=== PATIENT | female | born 1955 | race African-American/Black ===

== ENCOUNTER 2017-04-28 11:52 | Inpatient (IN) | payer MEDICARE, MEDICAID ==
--- NOTE | 2017-04-28 12:03 | ED Physician Chart ---
ED Chief Complaint/HPI - Patient Information Date Seen:: 04/28/17 Time Seen:: 12:02 Chief Complaint:: Increased agitation History of Present Illness:: 61 yo female was brought from SNF to ER for evaluation of increased agitation. She had COPD and Schizophrenia. Allergies:: Allergies Allergy/AdvReac Type Severity Reaction Status Date / Time MDX Ranitidine [Ranitidine] Allergy Verified 01/13/13 10:05 ED Review of Systems - Review of Systems General/Constitutional: No fever, Weakness Skin: No bruising Head: No headache Eyes: No pain ENT: No nasal drainage Neck: No neck pain Cardio Vascular: No chest pain Pulmonary: Wheezing GI: No nausea, No vomiting Musculoskeletal: No bone or joint pain ED Past Medical History - Past Medical History Past Medical History: HTN, DM, Thyroid disorder (hypothyroidism), Other (Anemia , glaucoma, cirrhosis, ascites, left eye blindness) Social History: Smoker (Former smoker), No Alcohol, No Drug Use Psychiatricy History: Depression, Schizophrenia Family Medical History - Family Member Mother Hx Family Cancer: No Hx Family Congestive Heart Failure: No Hx Family Hypertension: No Hx Family Diabetes: No Hx Family Seizures: No Hx Family Dementia: No Hx Family COPD: No Hx Family Hepatitis: No Hx Family Tuberculosis: No ED Physical Exam - Physical Examination General/Constitutional: Awake Head: Atraumatic Eyes: PERRL Skin: No ecchymosis ENMT: Nasal exam nl Neck: No nuchal rigidity Other Respiratory comments:: Wheezing, labored breathing Cardio Vascular: No murmur, gallop, rubs, NL S1 S2 Other Cardio Vascular comments:: Irregular GI: No tenderness/rebounding/guarding Other Extremities comments:: 2+ edema BLE Other Neuro/Psych comments:: resting tremor of bilateral upper extremities ED Labs/Radiology/EKG Results - Radiology Results Results: CXR: increased lung markings ED Assessment - Assessment General Assessment: UTI COPD exacerbation with hypoxemia Anemia Assessment/Comments:: CBC, CMP, UA ABG, CXR, EKG NS 1L IV bolus DuoNeb Rocephin ED Septic Shock - . Is Septic Shock (SBP<90, OR Lactate>4 mmol\L) present?: No
[2017-04-28] MEDS ORDERED: Albuterol/Ipratropium Neb 3 ML AERS HHN ONE ×2 (12:56→12:57)
[2017-04-28 13:20] LABS: MEAN CELL VOLUME 88.4 fl (81-100); MEAN CORPUSCULAR HEMOGLOBIN 28.8 pg (27.0-31.0); MEAN CORPUSCULAR HGB CONC 32.5 pg (28.0-36.0); MEAN PLATELET VOLUME 10.3 fl; RED CELL DISTRIBUTION WIDTH 17.4 % (11.5-20.0); WHITE BLOOD COUNT 6.3 Th/cmm (4.8-10.8)
[2017-04-28 13:24] LABS: ALB/GLOB RATIO 0.6 (1.0-1.8); ALBUMIN 2.5 gm/dL (3.7-5.3); ALKALINE PHOSPHATASE 164 U/L (34-104); ANION GAP 10.5 (7.0-16.0); BILIRUBIN,TOTAL 1.8 mg/dL (0.3-1.0); BUN - UREA NITROGEN 16 mg/dL (7-25); CARBON DIOXIDE 26.4 mEq/L (21.0-31.0); CHLORIDE 101 mEq/L (98-107); CREATININE - SERUM 0.8 mg/dL (0.6-1.2); GFR AFRICAN-AMERICAN > 60.0 ml/min (>90); GFR NON AFRICAN-AMERICAN > 60.0 ml/min; GLUCOSE 120 mg/dL (70-105); POTASSIUM SERUM 3.9 mEq/L (3.5-5.1); SGOT 122 U/L (13-39); SGPT/ALT 54 U/L (7-52); SODIUM SERUM 134 mEq/L (136-145); TOTAL PROTEIN,SERUM 6.8 gm/dL (6.0-8.3)
--- NOTE | 2017-04-28 13:51 | Diagnostic Imaging Report ---
CHEST X-RAY: AP view INDICATION: Wheezing COMPARISON: None FINDINGS: Increased lung markings are noted with elevation of the right hemidiaphragm. Borderline prominent heart is noted accentuated by patient's low lung volumes. No focal consolidation or effusions. Degenerative changes of the spine and shoulders are noted. IMPRESSION: Increased interstitial lung markings which may be due to patient's low lung volumes. Note however, a marginally of degree of congestion cannot be completely excluded. Please correlate clinically Additional increased right basal lung markings favoring atelectatic changes. No focal consolidation identified. Borderline prominent heart.
[2017-04-28 13:53] LABS: MANUAL DIFF REQUIRED? YES
[2017-04-28 13:54] LABS: HEMATOCRIT 30.9 % (41.0-60); HEMOGLOBIN 10.1 gm/dL (12-16); PLATELET COUNT 90 Th/cmm (150-400)
[2017-04-28 14:15] LABS: ALLEN TEST YES; pH 7.41 (7.35-7.45)
[2017-04-28 14:34] LABS: BAND NEUTROPHILE 1 % (0-10); BASOPHIL 0 % (0-3); EOSINOPHIL 7 % (0-5); LYMPHOCYTE 15 % (20-50); MONOCYTE 7 % (2-10); NEUTROPHILS 70 % (40-80)
[2017-04-28 14:35] LABS: URINE MICROSCOPIC INDICATED? YES; URINE SOURCE RANDOM
[2017-04-28 14:36] LABS: URINE BILIRUBIN NEGATIVE (NEGATIVE); URINE BLOOD NEGATIVE (NEGATIVE); URINE GLUCOSE (UA) NEGATIVE (NEGATIVE); URINE KETONE NEGATIVE (NEGATIVE); URINE LEUKOCYTE ESTERASE TRACE (NEGATIVE); URINE NITRATE NEGATIVE (NEGATIVE); URINE PROTEIN NEGATIVE (NEGATIVE)
[2017-04-28 14:50] LABS: URINE CLARITY HAZY (CLEAR); URINE COLOR YELLOW
[2017-04-28 14:51] LABS: URINE RBC 0-2 /hpf (0-5)
[2017-04-28 14:53] LABS: URINE BACTERIA FEW /hpf (NONE SEEN); URINE EPITHELIAL CELLS NONE SEEN /lpf (FEW)
[2017-04-28] MEDS ORDERED: Sodium Chloride 0.9% 1,000 ML IV ONE (14:56)
[2017-04-28] MEDS ORDERED: cefTRIAXone 1 GM in Sodium Chloride 0.9% 50 ML IV ONE (14:57)
[2017-04-28 20:18] VITALS: BP 135/58
[2017-04-29] MEDS ORDERED: Albuterol/Ipratropium Neb 3 ML AERS HHN ONE ×2 (05:00→05:03)
--- NOTE | 2017-04-29 16:19 | History & Physical ---
ADMIT DATE: 04/28/2017 DICTATING FOR: Dr. Champ Enrique. CHIEF COMPLAINT: Agitation. HISTORY OF PRESENT ILLNESS: This is a 61-year-old female, who is a skilled nursing resident, who is now admitted to the Geropsych Unit due to increase of agitation toward nursing staff. PAST MEDICAL HISTORY: COPD, schizophrenia, hypertension, diabetes, anemia, glaucoma, cirrhosis, ascites, left eye blindness. SOCIAL HISTORY: The patient is a skilled nursing resident. MEDICATIONS: Please see medication reconciliation. FAMILY HISTORY: Noncontributory. REVIEW OF SYSTEMS: GENERAL: Denies any fevers and chills. CARDIOVASCULAR: Denies chest pain. RESPIRATORY: Denies shortness of breath. GASTROINTESTINAL: Denies nausea, vomiting, or abdominal pain. GENITOURINARY: Denies increased frequency or dysuria. NEUROLOGIC: No headaches, seizures or syncope. All other systems are reviewed and are negative. PHYSICAL EXAMINATION: GENERAL: This is an elderly female. Awake, alert with confusion in no apparent distress. VITAL SIGNS: Temperature 97.1, heart rate 91, respirations 22, blood pressure 143/71. HEENT: Head normocephalic, atraumatic. NECK: Supple. No mass. LUNGS: Clear bilaterally. ABDOMEN: Soft, nontender. LABORATORY DATA: WBC 6.3, H and H 10.1 and 30.9, platelets 90. Sodium 134, potassium 3.9, chloride 101, BUN 16, creatinine 0.8, albumin 2.5. ASSESSMENT: Protein-calorie malnutrition, hypertension, diabetes, hypothyroidism, anemia, history of glaucoma, cirrhosis, left eye blindness, chronic obstructive pulmonary disease, acute urinary tract infection. PLAN: The patient to be admitted to the Geropsych Unit. We will start the patient on Levaquin for 7 days. We will continue to follow this patient. JOB# [id number]
[2017-04-29] MEDS ORDERED: Non-Formulary Item 1 EA (Melatonin [Melatonin] 6 MG) PO PRN (17:33)
[2017-04-29] MEDS: Hydrocodone/APAP 5mg/325mg Tab PO PRN (18:22)
[2017-04-29] MEDS: Polyvinyl Alcohol Ophth Soln 15 mL Bottle EACH EYE SCH (21:19)
[2017-04-29] MEDS: Lactulose 10 Gm/15 mL 30mL UDC PO SCH (21:19)
[2017-04-30] MEDS: Albuterol Nebulizer 2.5mg/3mL HHN PRN ×4 (03:12→19:14)
[2017-04-30] MEDS: Levothyroxine 0.1 Mg Tab PO SCH (06:39)
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
[2017-04-30] MEDS: Lactulose 10 Gm/15 mL 30mL UDC PO SCH ×3 (08:27→20:56)
[2017-04-30] MEDS: Multivitamin w/ Minerals Tab PO SCH (08:29)
[2017-04-30] MEDS: Polyvinyl Alcohol Ophth Soln 15 mL Bottle EACH EYE SCH ×3 (08:30→20:55)
[2017-04-30] MEDS ORDERED: Non-Formulary Item 1 EA (Potassium Chloride [Potassium Chloride] 1 TAB) PO SCH (09:00)
--- NOTE | 2017-04-30 14:00 | Internal Medicine Prog Note ---
Internal Medicine Subjective - Subjective Service Date: 04/30/17 Patient seen and examined:: with staff Patient is:: awake, verbal Per staff patient has:: tolerating meds Internal Medicine Objective - Results Result Diagrams: 04/28/17 13:04 04/28/17 13:04 Recent Labs: Laboratory Last Values WBC 6.3 Th/cmm (4.8-10.8) 04/28/17 13:04 RBC 3.50 Mil/cmm (3.80-5.10) L 04/28/17 13:04 Hgb 10.1 gm/dL (12-16) L D 04/28/17 13:04 Hct 30.9 % (41.0-60) L D 04/28/17 13:04 MCV 88.4 fl (81-100) 04/28/17 13:04 MCH 28.8 pg (27.0-31.0) 04/28/17 13:04 MCHC Differential 32.5 pg (28.0-36.0) 04/28/17 13:04 RDW 17.4 % (11.5-20.0) 04/28/17 13:04 Plt Count 90 Th/cmm (150-400) L D 04/28/17 13:04 MPV 10.3 fl 04/28/17 13:04 Band Neutrophils % 1 % (0-10) 04/28/17 13:04 Neutrophils (Manual) 70 % (40-80) 04/28/17 13:04 Lymphocytes 15 % (20-50) L 04/28/17 13:04 Monocytes 7 % (2-10) 04/28/17 13:04 Eosinophils 7 % (0-5) H 04/28/17 13:04 Basophils 0 % (0-3) 04/28/17 13:04 Specimen Source Arterial 04/28/17 14:08 Sample Site Right Radial 04/28/17 14:08 pH 7.41 (7.35-7.45) 04/28/17 14:08 pCO2 44.0 mmHg (35.0-45.0) 04/28/17 14:08 pO2 57.0 mmHg (80.0-100.0) L 04/28/17 14:08 HCO3 26.9 mEq/L (20.0-26.0) H 04/28/17 14:08 Base Excess 2.8 mEq/L (-3.0-3.0) 04/28/17 14:08 O2 Saturation 90.0 % (92.0-100.0) L 04/28/17 14:08 Damian Test YES 04/28/17 14:08 Vent Rate NA 04/28/17 14:08 Inspired O2 21 04/28/17 14:08 Tidal Volume NA 04/28/17 14:08 PEEP NA 04/28/17 14:08 Pressure (ins/psv/peep) NA 04/28/17 14:08 Critical Value E.BARRIOS 04/28/17 14:08 Sodium 134 mEq/L (136-145) L 04/28/17 13:04 Potassium 3.9 mEq/L (3.5-5.1) 04/28/17 13:04 Chloride 101 mEq/L (98-107) 04/28/17 13:04 Carbon Dioxide 26.4 mEq/L (21.0-31.0) 04/28/17 13:04 Anion Gap 10.5 (7.0-16.0) 04/28/17 13:04 BUN 16 mg/dL (7-25) 04/28/17 13:04 Creatinine 0.8 mg/dL (0.6-1.2) 04/28/17 13:04 Est GFR ( Amer) > 60.0 ml/min (>90) 04/28/17 13:04 Est GFR (Non-Af Amer) > 60.0 ml/min 04/28/17 13:04 BUN/Creatinine Ratio 20.0 04/28/17 13:04 Glucose 120 mg/dL (70-105) H 04/28/17 13:04 POC Glucose 134 MG/DL (70 - 105) H 04/29/17 06:33 Calcium 9.0 mg/dL (8.6-10.3) 04/28/17 13:04 Total Bilirubin 1.8 mg/dL (0.3-1.0) H 04/28/17 13:04 AST 122 U/L (13-39) H 04/28/17 13:04 ALT 54 U/L (7-52) H 04/28/17 13:04 Alkaline Phosphatase 164 U/L (34-104) H 04/28/17 13:04 B-Natriuretic Peptide 235.0 pg/mL (5.0-100.0) H 04/28/17 13:04 Total Protein 6.8 gm/dL (6.0-8.3) 04/28/17 13:04 Albumin 2.5 gm/dL (3.7-5.3) L 04/28/17 13:04 Globulin 4.3 gm/dL 04/28/17 13:04 Albumin/Globulin Ratio 0.6 (1.0-1.8) L 04/28/17 13:04 TSH 0.31 uIU/ml (0.34-5.60) L 04/28/17 13:04 Urine Source RANDOM 04/28/17 14:32 Urine Color YELLOW 04/28/17 14:32 Urine Clarity HAZY (CLEAR) 04/28/17 14:32 Urine pH 6.0 (4.6 - 8.0) 04/28/17 14:32 Ur Specific [place] 1.020 (1.005-1.030) 04/28/17 14:32 Urine Protein NEGATIVE mg/dL (NEGATIVE) 04/28/17 14:32 Urine Glucose (UA) NEGATIVE mg/dL (NEGATIVE) 04/28/17 14:32 Urine Ketones NEGATIVE mg/dL (NEGATIVE) 04/28/17 14:32 Urine Blood NEGATIVE (NEGATIVE) 04/28/17 14:32 Urine Nitrate NEGATIVE (NEGATIVE) 04/28/17 14:32 Urine Bilirubin NEGATIVE (NEGATIVE) 04/28/17 14:32 Urine Urobilinogen 1.0 E.U./dL (0.2 - 1.0) 04/28/17 14:32 Ur Leukocyte Esterase TRACE (NEGATIVE) H 04/28/17 14:32 Urine RBC 0-2 /hpf (0-5) 04/28/17 14:32 Urine WBC 10-25 /hpf (0-5) H 04/28/17 14:32 Ur Epithelial Cells NONE SEEN /lpf (FEW) 04/28/17 14:32 Urine Bacteria FEW /hpf (NONE SEEN) 04/28/17 14:32 - Physical Exam Vitals and I&O: Vital Signs Temp 98 F 04/29/17 20:49 Pulse 85 04/30/17 09:21 Resp 20 04/30/17 07:17 BP 110/62 04/30/17 09:21 Pulse Ox 94 04/30/17 07:17 Intake & Output 04/29/171818 04/30/17 18:59 06:59 18:59 Intake Total 1200 240 Balance 1200 240 Intake: Oral 1200 240 Other: # Voids 3 1 # Bowel Movements 1 Active Medications: Current Medications Acetaminophen (Tylenol) 650 mg PO Q6HR PRN PRN Reason: FEVER, NEWELL, PAIN Stop: 06/28/17 17:32 Last Admin: 04/30/17 08:29 Dose: 650 mg Acetaminophen/Hydrocodone Bitart ([place] 5mg/325mg) 1 tab PO Q12H PRN PRN Reason: CHRONIC PAIN Stop: 06/28/17 17:32 Last Admin: 04/29/17 18:22 Dose: 1 tab Albuterol Sulfate (Albuterol 2.5mg/3ml Neb Ud) 2.5 mg HHN Q4HRT PRN PRN Reason: Shortness of Breath Stop: 06/28/17 17:32 Last Admin: 04/30/17 07:17 Dose: 2.5 mg Amlodipine Besylate (Norvasc) 10 mg PO DAILY [facility] Stop: 06/29/17 08:59 Last Admin: 04/30/17 09:20 Dose: Not Given Artificial Tears (Artificial Tears Ophth Soln) 1 drop EACH EYE TID [facility] Stop: 06/28/17 20:59 Last Admin: 04/30/17 13:54 Dose: 1 drop Buspirone HCl (Buspar) 5 mg PO BID MONSE PRN Reason: Protocol Stop: 06/29/17 08:59 Last Admin: 04/30/17 08:28 Dose: 5 mg Cholecalciferol (Vitamin D3) 5,000 iu PO DAILY [facility] Stop: 06/29/17 08:59 Last Admin: 04/30/17 08:28 Dose: 5,000 iu Citalopram Hydrobromide (Celexa) 30 mg PO DAILY [facility] Stop: 06/29/17 08:59 Last Admin: 04/30/17 08:28 Dose: 30 mg Clopidogrel Bisulfate (Plavix) 75 mg PO DAILY [facility] Stop: 06/29/17 08:59 Last Admin: 04/30/17 08:28 Dose: 75 mg Furosemide (Lasix) 40 mg PO DAILY [facility] Stop: 06/29/17 08:59 Last Admin: 04/30/17 09:21 Dose: Not Given Lactulose (Cephulac) 10 gm PO TID [facility] Stop: 06/28/17 20:59 Last Admin: 04/30/17 13:54 Dose: 10 gm Latanoprost (Xalatan 0.005% Ophth Soln) 1 drop EACH EYE HS [facility] Stop: 06/28/17 20:59 Last Admin: 04/29/17 21:19 Dose: Not Given Levofloxacin (Levaquin) 250 mg PO DAILY [facility] Stop: 06/30/17 08:59 Levothyroxine Sodium (Synthroid) 0.2 mg PO QDAC [facility] Stop: 06/29/17 07:29 Last Admin: 04/30/17 06:39 Dose: 0.2 mg Lorazepam (Ativan) 0.5 mg PO Q8HR PRN; Protocol PRN Reason: Anxiety Stop: 06/27/17 20:28 Last Admin: 04/30/17 06:09 Dose: 0.5 mg Losartan Potassium (Cozaar) 100 mg PO DAILY [facility] Stop: 06/29/17 08:59 Last Admin: 04/30/17 09:21 Dose: Not Given Metoprolol Succinate (Toprol Xl) 25 mg PO DAILY [facility] Stop: 06/29/17 08:59 Last Admin: 04/30/17 09:21 Dose: Not Given Mupirocin (Bactroban Oint) 1 appl NS BID [facility] Stop: 05/04/17 17:01 Last Admin: 04/30/17 08:29 Dose: 1 appl Olanzapine (Zyprexa) 2.5 mg PO HS MONSE PRN Reason: Protocol Stop: 06/28/17 20:59 Last Admin: 04/29/17 21:20 Dose: Not Given Pregabalin (Lyrica) 75 mg PO HS [facility] Stop: 06/28/17 20:59 Last Admin: 04/29/17 21:18 Dose: 75 mg Zolpidem Tartrate (Ambien) 5 mg PO HS PRN PRN Reason: Insomnia Stop: 06/28/17 21:43 Last Admin: 04/29/17 22:52 Dose: 5 mg General: alert HEENT: NC/AT, PERRLA Neck: Supple Lungs: CTAB Cardiovascular: RRR, Normal S1, Normal S2, without murmur Abdomen: soft, non-tender, non-distended, positive bowel sound Neurological: alert - Procedures Procedures: Procedures Procedure Code Date OTHER GROUP THERAPY 94.44 01/13/13 Internal Medicine Assmt/Plan - Assessment Assessment: anemia glaucoma cirrhosis left eye blindness copd acute uti - Plan Plan: encourage fluids continue levaquin continue current orders
--- NOTE | 2017-04-30 21:40 | Progress Notes ---
DATE: 04/30/2017 The patient was seen, chart reviewed. Discussed with staff. The patient continues to be extremely anxious, depressed, endorsing thoughts of wanting to cut her own wrist. She has, however, been compliant with her medications, denying any side effects. The patient continues to be very depressed with thoughts of wanting to cut herself, so that she will require inpatient care for stabilization and treatment. We will monitor patient on a daily basis for response to treatment and titrate meds as needed. [facility]# [id number]
[2017-05-01] MEDS: Albuterol Nebulizer 2.5mg/3mL HHN PRN ×2 (01:27→13:50)
[2017-05-01] MEDS: Levothyroxine 0.1 Mg Tab PO SCH (06:54)
[2017-05-01] MEDS: Lactulose 10 Gm/15 mL 30mL UDC PO SCH ×3 (08:52→20:53)
[2017-05-01] MEDS: Multivitamin w/ Minerals Tab PO SCH (08:55)
[2017-05-01] MEDS: Polyvinyl Alcohol Ophth Soln 15 mL Bottle EACH EYE SCH ×3 (08:57→20:55)
[2017-05-01] MEDS: Hydrocodone/APAP 5mg/325mg Tab PO PRN ×2 (11:09→21:23)
--- NOTE | 2017-05-01 11:55 | Internal Medicine Prog Note ---
Internal Medicine Subjective - Subjective Service Date: 05/01/17 Patient is:: awake, verbal Per staff patient has:: tolerating meds Internal Medicine Objective - Results Result Diagrams: 04/28/17 13:04 04/28/17 13:04 Recent Labs: Laboratory Last Values WBC 6.3 Th/cmm (4.8-10.8) 04/28/17 13:04 RBC 3.50 Mil/cmm (3.80-5.10) L 04/28/17 13:04 Hgb 10.1 gm/dL (12-16) L D 04/28/17 13:04 Hct 30.9 % (41.0-60) L D 04/28/17 13:04 MCV 88.4 fl (81-100) 04/28/17 13:04 MCH 28.8 pg (27.0-31.0) 04/28/17 13:04 MCHC Differential 32.5 pg (28.0-36.0) 04/28/17 13:04 RDW 17.4 % (11.5-20.0) 04/28/17 13:04 Plt Count 90 Th/cmm (150-400) L D 04/28/17 13:04 MPV 10.3 fl 04/28/17 13:04 Band Neutrophils % 1 % (0-10) 04/28/17 13:04 Neutrophils (Manual) 70 % (40-80) 04/28/17 13:04 Lymphocytes 15 % (20-50) L 04/28/17 13:04 Monocytes 7 % (2-10) 04/28/17 13:04 Eosinophils 7 % (0-5) H 04/28/17 13:04 Basophils 0 % (0-3) 04/28/17 13:04 Specimen Source Arterial 04/28/17 14:08 Sample Site Right Radial 04/28/17 14:08 pH 7.41 (7.35-7.45) 04/28/17 14:08 pCO2 44.0 mmHg (35.0-45.0) 04/28/17 14:08 pO2 57.0 mmHg (80.0-100.0) L 04/28/17 14:08 HCO3 26.9 mEq/L (20.0-26.0) H 04/28/17 14:08 Base Excess 2.8 mEq/L (-3.0-3.0) 04/28/17 14:08 O2 Saturation 90.0 % (92.0-100.0) L 04/28/17 14:08 Damian Test YES 04/28/17 14:08 Vent Rate NA 04/28/17 14:08 Inspired O2 21 04/28/17 14:08 Tidal Volume NA 04/28/17 14:08 PEEP NA 04/28/17 14:08 Pressure (ins/psv/peep) NA 04/28/17 14:08 Critical Value E.BARRIOS 04/28/17 14:08 Sodium 134 mEq/L (136-145) L 04/28/17 13:04 Potassium 3.9 mEq/L (3.5-5.1) 04/28/17 13:04 Chloride 101 mEq/L (98-107) 04/28/17 13:04 Carbon Dioxide 26.4 mEq/L (21.0-31.0) 04/28/17 13:04 Anion Gap 10.5 (7.0-16.0) 04/28/17 13:04 BUN 16 mg/dL (7-25) 04/28/17 13:04 Creatinine 0.8 mg/dL (0.6-1.2) 04/28/17 13:04 Est GFR ( Amer) > 60.0 ml/min (>90) 04/28/17 13:04 Est GFR (Non-Af Amer) > 60.0 ml/min 04/28/17 13:04 BUN/Creatinine Ratio 20.0 04/28/17 13:04 Glucose 120 mg/dL (70-105) H 04/28/17 13:04 POC Glucose 134 MG/DL (70 - 105) H 04/29/17 06:33 Calcium 9.0 mg/dL (8.6-10.3) 04/28/17 13:04 Total Bilirubin 1.8 mg/dL (0.3-1.0) H 04/28/17 13:04 AST 122 U/L (13-39) H 04/28/17 13:04 ALT 54 U/L (7-52) H 04/28/17 13:04 Alkaline Phosphatase 164 U/L (34-104) H 04/28/17 13:04 B-Natriuretic Peptide 235.0 pg/mL (5.0-100.0) H 04/28/17 13:04 Total Protein 6.8 gm/dL (6.0-8.3) 04/28/17 13:04 Albumin 2.5 gm/dL (3.7-5.3) L 04/28/17 13:04 Globulin 4.3 gm/dL 04/28/17 13:04 Albumin/Globulin Ratio 0.6 (1.0-1.8) L 04/28/17 13:04 TSH 0.31 uIU/ml (0.34-5.60) L 04/28/17 13:04 Urine Source RANDOM 04/28/17 14:32 Urine Color YELLOW 04/28/17 14:32 Urine Clarity HAZY (CLEAR) 04/28/17 14:32 Urine pH 6.0 (4.6 - 8.0) 04/28/17 14:32 Ur Specific [place] 1.020 (1.005-1.030) 04/28/17 14:32 Urine Protein NEGATIVE mg/dL (NEGATIVE) 04/28/17 14:32 Urine Glucose (UA) NEGATIVE mg/dL (NEGATIVE) 04/28/17 14:32 Urine Ketones NEGATIVE mg/dL (NEGATIVE) 04/28/17 14:32 Urine Blood NEGATIVE (NEGATIVE) 04/28/17 14:32 Urine Nitrate NEGATIVE (NEGATIVE) 04/28/17 14:32 Urine Bilirubin NEGATIVE (NEGATIVE) 04/28/17 14:32 Urine Urobilinogen 1.0 E.U./dL (0.2 - 1.0) 04/28/17 14:32 Ur Leukocyte Esterase TRACE (NEGATIVE) H 04/28/17 14:32 Urine RBC 0-2 /hpf (0-5) 04/28/17 14:32 Urine WBC 10-25 /hpf (0-5) H 04/28/17 14:32 Ur Epithelial Cells NONE SEEN /lpf (FEW) 04/28/17 14:32 Urine Bacteria FEW /hpf (NONE SEEN) 04/28/17 14:32 - Physical Exam Vitals and I&O: Vital Signs Temp 98 F 04/30/17 20:00 Pulse 80 05/01/17 10:01 Resp 18 05/01/17 10:01 BP 140/60 05/01/17 08:58 Pulse Ox 98 05/01/17 10:01 Intake & Output 04/30/1718 05/01/17 18:59 06:59 18:59 Intake Total 1200 Balance 1200 Intake: Oral 1200 Other: # Voids 3 # Bowel Movements 1 Active Medications: Current Medications Acetaminophen (Tylenol) 650 mg PO Q6HR PRN PRN Reason: FEVER, NEWELL, PAIN Stop: 06/28/17 17:32 Last Admin: 04/30/17 08:29 Dose: 650 mg Acetaminophen/Hydrocodone Bitart ([place] 5mg/325mg) 1 tab PO Q12H PRN PRN Reason: CHRONIC PAIN Stop: 06/28/17 17:32 Last Admin: 05/01/17 11:09 Dose: 1 tab Albuterol Sulfate (Albuterol 2.5mg/3ml Neb Ud) 2.5 mg HHN Q4HRT PRN PRN Reason: Shortness of Breath Stop: 06/28/17 17:32 Last Admin: 05/01/17 01:27 Dose: 2.5 mg Amlodipine Besylate (Norvasc) 10 mg PO DAILY [facility] Stop: 06/29/17 08:59 Last Admin: 05/01/17 08:58 Dose: 10 mg Artificial Tears (Artificial Tears Ophth Soln) 1 drop EACH EYE TID [facility] Stop: 06/28/17 20:59 Last Admin: 05/01/17 08:57 Dose: 1 drop Buspirone HCl (Buspar) 5 mg PO BID MONSE PRN Reason: Protocol Stop: 06/29/17 08:59 Last Admin: 05/01/17 08:58 Dose: 5 mg Cholecalciferol (Vitamin D3) 5,000 iu PO DAILY [facility] Stop: 06/29/17 08:59 Last Admin: 05/01/17 08:53 Dose: 5,000 iu Citalopram Hydrobromide (Celexa) 30 mg PO DAILY [facility] Stop: 06/29/17 08:59 Last Admin: 05/01/17 08:56 Dose: 30 mg Clopidogrel Bisulfate (Plavix) 75 mg PO DAILY [facility] Stop: 06/29/17 08:59 Last Admin: 05/01/17 08:57 Dose: 75 mg Doxycycline Hyclate (Vibramycin) 100 mg PO Q12HR [facility] Stop: 05/07/17 20:59 Last Admin: 05/01/17 08:53 Dose: 100 mg Furosemide (Lasix) 40 mg PO DAILY [facility] Stop: 06/29/17 08:59 Last Admin: 05/01/17 08:54 Dose: 40 mg Lactulose (Cephulac) 10 gm PO TID [facility] Stop: 06/28/17 20:59 Last Admin: 05/01/17 08:52 Dose: 10 gm Latanoprost (Xalatan 0.005% Ophth Soln) 1 drop EACH EYE HS [facility] Stop: 06/28/17 20:59 Last Admin: 04/30/17 20:55 Dose: 1 drop Levothyroxine Sodium (Synthroid) 0.2 mg PO QDAC [facility] Stop: 06/29/17 07:29 Last Admin: 05/01/17 06:54 Dose: 0.2 mg Lorazepam (Ativan) 0.5 mg PO Q8HR PRN; Protocol PRN Reason: Anxiety Stop: 06/27/17 20:28 Last Admin: 04/30/17 14:47 Dose: 0.5 mg Losartan Potassium (Cozaar) 100 mg PO DAILY [facility] Stop: 06/29/17 08:59 Last Admin: 05/01/17 08:57 Dose: 100 mg Metoprolol Succinate (Toprol Xl) 25 mg PO DAILY [facility] Stop: 06/29/17 08:59 Last Admin: 05/01/17 08:55 Dose: 25 mg Mupirocin (Bactroban Oint) 1 appl NS BID [facility] Stop: 05/04/17 17:01 Last Admin: 05/01/17 08:52 Dose: 1 appl Olanzapine (Zyprexa) 2.5 mg PO HS MON[facility] PRN Reason: Protocol Stop: 06/28/17 20:59 Last Admin: 04/30/17 20:55 Dose: 2.5 mg Pregabalin (Lyrica) 75 mg PO HS [facility] Stop: 06/28/17 20:59 Last Admin: 04/30/17 20:55 Dose: 75 mg Zolpidem Tartrate (Ambien) 5 mg PO HS PRN PRN Reason: Insomnia Stop: 06/28/17 21:43 Last Admin: 04/30/17 21:59 Dose: 5 mg General: alert HEENT: NC/AT, PERRLA Neck: Supple Lungs: CTAB Cardiovascular: RRR, Normal S1, Normal S2, without murmur Abdomen: soft, non-tender, non-distended, positive bowel sound Neurological: alert - Procedures Procedures: Procedures Procedure Code Date OTHER GROUP THERAPY 94.44 01/13/13 Internal Medicine Assmt/Plan - Assessment Assessment: anemia glaucoma cirrhosis left eye blindness copd acute uti - Plan Plan: encourage fluids continue levaquin continue current orders
--- NOTE | 2017-05-02 03:40 | Progress Notes ---
DATE: 05/01/2017 SUBJECTIVE: The patient in the hospital, coming in [place] [facility], agitation, depression here because she states she has a lot of panic attacks, anxiety, SI, wanting to cut wrists. On [id number], the patient remains symptomatic, anxious, still with panic, endorsing suicidal ideations, not john for safety. Medications reviewed. No side effects. ASSESSMENT: The patient remains symptomatic, anxious, endorsing SI, history of apparently schizophrenia. PLAN: We will continue to monitor. I will increase Zyprexa today. Given her ongoing symptoms, she is not safe for discharge at this time. JOB# [id number]
[2017-05-02] MEDS: Levothyroxine 0.1 Mg Tab PO SCH (06:30)
[2017-05-02] MEDS: Lactulose 10 Gm/15 mL 30mL UDC PO SCH ×3 (09:46→20:53)
[2017-05-02] MEDS: Polyvinyl Alcohol Ophth Soln 15 mL Bottle EACH EYE SCH ×3 (10:04→21:20)
[2017-05-02] MEDS: Albuterol Nebulizer 2.5mg/3mL HHN PRN ×4 (12:39→20:59)
--- NOTE | 2017-05-02 13:57 | Internal Medicine Prog Note ---
Internal Medicine Subjective - Subjective Service Date: 05/02/17 Patient is:: awake, verbal Per staff patient has:: tolerating meds Internal Medicine Objective - Results Result Diagrams: 04/28/17 13:04 04/28/17 13:04 Recent Labs: Laboratory Last Values WBC 6.3 Th/cmm (4.8-10.8) 04/28/17 13:04 RBC 3.50 Mil/cmm (3.80-5.10) L 04/28/17 13:04 Hgb 10.1 gm/dL (12-16) L D 04/28/17 13:04 Hct 30.9 % (41.0-60) L D 04/28/17 13:04 MCV 88.4 fl (81-100) 04/28/17 13:04 MCH 28.8 pg (27.0-31.0) 04/28/17 13:04 MCHC Differential 32.5 pg (28.0-36.0) 04/28/17 13:04 RDW 17.4 % (11.5-20.0) 04/28/17 13:04 Plt Count 90 Th/cmm (150-400) L D 04/28/17 13:04 MPV 10.3 fl 04/28/17 13:04 Band Neutrophils % 1 % (0-10) 04/28/17 13:04 Neutrophils (Manual) 70 % (40-80) 04/28/17 13:04 Lymphocytes 15 % (20-50) L 04/28/17 13:04 Monocytes 7 % (2-10) 04/28/17 13:04 Eosinophils 7 % (0-5) H 04/28/17 13:04 Basophils 0 % (0-3) 04/28/17 13:04 Specimen Source Arterial 04/28/17 14:08 Sample Site Right Radial 04/28/17 14:08 pH 7.41 (7.35-7.45) 04/28/17 14:08 pCO2 44.0 mmHg (35.0-45.0) 04/28/17 14:08 pO2 57.0 mmHg (80.0-100.0) L 04/28/17 14:08 HCO3 26.9 mEq/L (20.0-26.0) H 04/28/17 14:08 Base Excess 2.8 mEq/L (-3.0-3.0) 04/28/17 14:08 O2 Saturation 90.0 % (92.0-100.0) L 04/28/17 14:08 Damian Test YES 04/28/17 14:08 Vent Rate NA 04/28/17 14:08 Inspired O2 21 04/28/17 14:08 Tidal Volume NA 04/28/17 14:08 PEEP NA 04/28/17 14:08 Pressure (ins/psv/peep) NA 04/28/17 14:08 Critical Value E.BARRIOS 04/28/17 14:08 Sodium 134 mEq/L (136-145) L 04/28/17 13:04 Potassium 3.9 mEq/L (3.5-5.1) 04/28/17 13:04 Chloride 101 mEq/L (98-107) 04/28/17 13:04 Carbon Dioxide 26.4 mEq/L (21.0-31.0) 04/28/17 13:04 Anion Gap 10.5 (7.0-16.0) 04/28/17 13:04 BUN 16 mg/dL (7-25) 04/28/17 13:04 Creatinine 0.8 mg/dL (0.6-1.2) 04/28/17 13:04 Est GFR ( Amer) > 60.0 ml/min (>90) 04/28/17 13:04 Est GFR (Non-Af Amer) > 60.0 ml/min 04/28/17 13:04 BUN/Creatinine Ratio 20.0 04/28/17 13:04 Glucose 120 mg/dL (70-105) H 04/28/17 13:04 POC Glucose 134 MG/DL (70 - 105) H 04/29/17 06:33 Calcium 9.0 mg/dL (8.6-10.3) 04/28/17 13:04 Total Bilirubin 1.8 mg/dL (0.3-1.0) H 04/28/17 13:04 AST 122 U/L (13-39) H 04/28/17 13:04 ALT 54 U/L (7-52) H 04/28/17 13:04 Alkaline Phosphatase 164 U/L (34-104) H 04/28/17 13:04 B-Natriuretic Peptide 235.0 pg/mL (5.0-100.0) H 04/28/17 13:04 Total Protein 6.8 gm/dL (6.0-8.3) 04/28/17 13:04 Albumin 2.5 gm/dL (3.7-5.3) L 04/28/17 13:04 Globulin 4.3 gm/dL 04/28/17 13:04 Albumin/Globulin Ratio 0.6 (1.0-1.8) L 04/28/17 13:04 TSH 0.31 uIU/ml (0.34-5.60) L 04/28/17 13:04 Urine Source RANDOM 04/28/17 14:32 Urine Color YELLOW 04/28/17 14:32 Urine Clarity HAZY (CLEAR) 04/28/17 14:32 Urine pH 6.0 (4.6 - 8.0) 04/28/17 14:32 Ur Specific [place] 1.020 (1.005-1.030) 04/28/17 14:32 Urine Protein NEGATIVE mg/dL (NEGATIVE) 04/28/17 14:32 Urine Glucose (UA) NEGATIVE mg/dL (NEGATIVE) 04/28/17 14:32 Urine Ketones NEGATIVE mg/dL (NEGATIVE) 04/28/17 14:32 Urine Blood NEGATIVE (NEGATIVE) 04/28/17 14:32 Urine Nitrate NEGATIVE (NEGATIVE) 04/28/17 14:32 Urine Bilirubin NEGATIVE (NEGATIVE) 04/28/17 14:32 Urine Urobilinogen 1.0 E.U./dL (0.2 - 1.0) 04/28/17 14:32 Ur Leukocyte Esterase TRACE (NEGATIVE) H 04/28/17 14:32 Urine RBC 0-2 /hpf (0-5) 04/28/17 14:32 Urine WBC 10-25 /hpf (0-5) H 04/28/17 14:32 Ur Epithelial Cells NONE SEEN /lpf (FEW) 04/28/17 14:32 Urine Bacteria FEW /hpf (NONE SEEN) 04/28/17 14:32 - Physical Exam Vitals and I&O: Vital Signs Temp 98.5 F 05/01/17 20:00 Pulse 71 05/02/17 12:42 Resp 18 05/02/17 12:42 BP 156/62 05/02/17 09:54 Pulse Ox 98 05/02/17 12:42 Intake & Output 05/01/1718 05/02/17 18:59 06:59 18:59 Intake Total 1200 Balance 1200 Intake: Oral 1200 Other: # Voids 4 # Bowel Movements 1 Active Medications: Current Medications Acetaminophen (Tylenol) 650 mg PO Q6HR PRN PRN Reason: FEVER, NEWELL, PAIN Stop: 06/28/17 17:32 Last Admin: 04/30/17 08:29 Dose: 650 mg Acetaminophen/Hydrocodone Bitart ([place] 5mg/325mg) 1 tab PO Q12H PRN PRN Reason: CHRONIC PAIN Stop: 06/28/17 17:32 Last Admin: 05/01/17 21:23 Dose: 1 tab Albuterol Sulfate (Albuterol 2.5mg/3ml Neb Ud) 2.5 mg HHN Q4HRT PRN PRN Reason: Shortness of Breath Stop: 06/28/17 17:32 Last Admin: 05/02/17 12:39 Dose: 2.5 mg Amlodipine Besylate (Norvasc) 10 mg PO DAILY [facility] Stop: 06/29/17 08:59 Last Admin: 05/02/17 09:47 Dose: 10 mg Artificial Tears (Artificial Tears Ophth Soln) 1 drop EACH EYE TID MONSE Stop: 06/28/17 20:59 Last Admin: 05/02/17 10:04 Dose: 1 drop Buspirone HCl (Buspar) 5 mg PO BID MONSE PRN Reason: Protocol Stop: 06/29/17 08:59 Last Admin: 05/02/17 09:48 Dose: 5 mg Cholecalciferol (Vitamin D3) 5,000 iu PO DAILY MONSE Stop: 06/29/17 08:59 Last Admin: 05/02/17 09:54 Dose: 5,000 iu Citalopram Hydrobromide (Celexa) 30 mg PO DAILY MONSE Stop: 06/29/17 08:59 Last Admin: 05/02/17 09:48 Dose: 30 mg Clopidogrel Bisulfate (Plavix) 75 mg PO DAILY MONSE Stop: 06/29/17 08:59 Last Admin: 05/02/17 09:54 Dose: 75 mg Doxycycline Hyclate (Vibramycin) 100 mg PO Q12HR MONSE Stop: 05/07/17 20:59 Last Admin: 05/02/17 09:47 Dose: 100 mg Furosemide (Lasix) 40 mg PO DAILY MONSE Stop: 06/29/17 08:59 Last Admin: 05/02/17 09:54 Dose: 40 mg Lactulose (Cephulac) 10 gm PO TID MONSE Stop: 06/28/17 20:59 Last Admin: 05/02/17 09:46 Dose: 10 gm Latanoprost (Xalatan 0.005% Ophth Soln) 1 drop EACH EYE HS MONSE Stop: 06/28/17 20:59 Last Admin: 05/01/17 20:55 Dose: 1 drop Levothyroxine Sodium (Synthroid) 0.2 mg PO QDAC MONSE Stop: 06/29/17 07:29 Last Admin: 05/02/17 06:30 Dose: 0.2 mg Lorazepam (Ativan) 0.5 mg PO Q8HR PRN; Protocol PRN Reason: Anxiety Stop: 06/27/17 20:28 Last Admin: 05/02/17 06:27 Dose: 0.5 mg Losartan Potassium (Cozaar) 100 mg PO DAILY MONSE Stop: 06/29/17 08:59 Last Admin: 05/02/17 09:54 Dose: 100 mg Metoprolol Succinate (Toprol Xl) 25 mg PO DAILY MONSE Stop: 06/29/17 08:59 Last Admin: 05/02/17 09:52 Dose: 25 mg Mupirocin (Bactroban Oint) 1 appl NS BID MONSE Stop: 05/04/17 17:01 Last Admin: 05/02/17 10:04 Dose: 1 appl Olanzapine (Zyprexa) 5 mg PO HS MONSE PRN Reason: Protocol Stop: 06/30/17 20:59 Last Admin: 05/01/17 20:55 Dose: 5 mg Pregabalin (Lyrica) 75 mg PO HS MONSE Stop: 06/28/17 20:59 Last Admin: 05/01/17 20:51 Dose: 75 mg Zolpidem Tartrate (Ambien) 5 mg PO HS PRN PRN Reason: Insomnia Stop: 06/28/17 21:43 Last Admin: 05/01/17 21:23 Dose: 5 mg General: alert HEENT: NC/AT, PERRLA Neck: Supple Lungs: CTAB Cardiovascular: RRR, Normal S1, Normal S2, without murmur Abdomen: soft, non-tender, non-distended, positive bowel sound Neurological: alert - Procedures Procedures: Procedures Procedure Code Date OTHER GROUP THERAPY 94.44 01/13/13 Internal Medicine Assmt/Plan - Assessment Assessment: anemia glaucoma cirrhosis left eye blindness copd acute uti - Plan Plan: encourage fluids continue levaquin continue current orders
[2017-05-02] MEDS: Multivitamin w/ Minerals Tab PO SCH (18:03)
[2017-05-02] MEDS: Hydrocodone/APAP 5mg/325mg Tab PO PRN (20:52)
--- NOTE | 2017-05-03 00:56 | Progress Notes ---
DATE: 05/02/2017 The patient is currently in the hospital, coming from a half-way complaining of panic, ongoing SI, suicidal thought, suicidal fantasies, reclusive and isolative, withdrawn, still stating she feels bad and high anxiety. Currently on Zyprexa 5 mg at night. Recent dose increase. Still attesting to ongoing suicidal fantasies and severe depression. ASSESSMENT: The patient remains symptomatic and not safe for discharge. Still suicidal. We will continue to adjust and titrate medications. Medications were reviewed. [facility]# [id number]
[2017-05-03] MEDS: Levothyroxine 0.1 Mg Tab PO SCH (06:48)
[2017-05-03] MEDS: Multivitamin w/ Minerals Tab PO SCH (09:19)
[2017-05-03] MEDS: Lactulose 10 Gm/15 mL 30mL UDC PO SCH ×3 (09:20→21:58)
--- NOTE | 2017-05-03 13:16 | Progress Notes ---
DATE: 05/03/2017 The patient still remains symptomatic, ongoing suicidal thoughts, noting that she still feels melancholic, hopeless and despairing and is having a hard time coping and continues to complain of high anxiety, also with panic, shaking and desperate for help. Medications were noted. The patient remains reclusive and isolative. ASSESSMENT: The patient remains symptomatic, depressed, still alluding to a very high panic and suicidal thoughts, suicidal fantasies. PLAN: We will continue to monitor. We will make appropriate medication adjustments. The patient remains symptomatic, not safe for a lower level of care. [facility]# [id number]
--- NOTE | 2017-05-03 13:55 | Internal Medicine Prog Note ---
Internal Medicine Subjective - Subjective Service Date: 05/03/17 Patient is:: awake, verbal Per staff patient has:: tolerating meds Internal Medicine Objective - Results Result Diagrams: 04/28/17 13:04 04/28/17 13:04 Recent Labs: Laboratory Last Values WBC 6.3 Th/cmm (4.8-10.8) 04/28/17 13:04 RBC 3.50 Mil/cmm (3.80-5.10) L 04/28/17 13:04 Hgb 10.1 gm/dL (12-16) L D 04/28/17 13:04 Hct 30.9 % (41.0-60) L D 04/28/17 13:04 MCV 88.4 fl (81-100) 04/28/17 13:04 MCH 28.8 pg (27.0-31.0) 04/28/17 13:04 MCHC Differential 32.5 pg (28.0-36.0) 04/28/17 13:04 RDW 17.4 % (11.5-20.0) 04/28/17 13:04 Plt Count 90 Th/cmm (150-400) L D 04/28/17 13:04 MPV 10.3 fl 04/28/17 13:04 Band Neutrophils % 1 % (0-10) 04/28/17 13:04 Neutrophils (Manual) 70 % (40-80) 04/28/17 13:04 Lymphocytes 15 % (20-50) L 04/28/17 13:04 Monocytes 7 % (2-10) 04/28/17 13:04 Eosinophils 7 % (0-5) H 04/28/17 13:04 Basophils 0 % (0-3) 04/28/17 13:04 Specimen Source Arterial 04/28/17 14:08 Sample Site Right Radial 04/28/17 14:08 pH 7.41 (7.35-7.45) 04/28/17 14:08 pCO2 44.0 mmHg (35.0-45.0) 04/28/17 14:08 pO2 57.0 mmHg (80.0-100.0) L 04/28/17 14:08 HCO3 26.9 mEq/L (20.0-26.0) H 04/28/17 14:08 Base Excess 2.8 mEq/L (-3.0-3.0) 04/28/17 14:08 O2 Saturation 90.0 % (92.0-100.0) L 04/28/17 14:08 Damian Test YES 04/28/17 14:08 Vent Rate NA 04/28/17 14:08 Inspired O2 21 04/28/17 14:08 Tidal Volume NA 04/28/17 14:08 PEEP NA 04/28/17 14:08 Pressure (ins/psv/peep) NA 04/28/17 14:08 Critical Value E.BARRIOS 04/28/17 14:08 Sodium 134 mEq/L (136-145) L 04/28/17 13:04 Potassium 3.9 mEq/L (3.5-5.1) 04/28/17 13:04 Chloride 101 mEq/L (98-107) 04/28/17 13:04 Carbon Dioxide 26.4 mEq/L (21.0-31.0) 04/28/17 13:04 Anion Gap 10.5 (7.0-16.0) 04/28/17 13:04 BUN 16 mg/dL (7-25) 04/28/17 13:04 Creatinine 0.8 mg/dL (0.6-1.2) 04/28/17 13:04 Est GFR ( Amer) > 60.0 ml/min (>90) 04/28/17 13:04 Est GFR (Non-Af Amer) > 60.0 ml/min 04/28/17 13:04 BUN/Creatinine Ratio 20.0 04/28/17 13:04 Glucose 120 mg/dL (70-105) H 04/28/17 13:04 POC Glucose 134 MG/DL (70 - 105) H 04/29/17 06:33 Calcium 9.0 mg/dL (8.6-10.3) 04/28/17 13:04 Total Bilirubin 1.8 mg/dL (0.3-1.0) H 04/28/17 13:04 AST 122 U/L (13-39) H 04/28/17 13:04 ALT 54 U/L (7-52) H 04/28/17 13:04 Alkaline Phosphatase 164 U/L (34-104) H 04/28/17 13:04 B-Natriuretic Peptide 235.0 pg/mL (5.0-100.0) H 04/28/17 13:04 Total Protein 6.8 gm/dL (6.0-8.3) 04/28/17 13:04 Albumin 2.5 gm/dL (3.7-5.3) L 04/28/17 13:04 Globulin 4.3 gm/dL 04/28/17 13:04 Albumin/Globulin Ratio 0.6 (1.0-1.8) L 04/28/17 13:04 TSH 0.31 uIU/ml (0.34-5.60) L 04/28/17 13:04 Urine Source RANDOM 04/28/17 14:32 Urine Color YELLOW 04/28/17 14:32 Urine Clarity HAZY (CLEAR) 04/28/17 14:32 Urine pH 6.0 (4.6 - 8.0) 04/28/17 14:32 Ur Specific [place] 1.020 (1.005-1.030) 04/28/17 14:32 Urine Protein NEGATIVE mg/dL (NEGATIVE) 04/28/17 14:32 Urine Glucose (UA) NEGATIVE mg/dL (NEGATIVE) 04/28/17 14:32 Urine Ketones NEGATIVE mg/dL (NEGATIVE) 04/28/17 14:32 Urine Blood NEGATIVE (NEGATIVE) 04/28/17 14:32 Urine Nitrate NEGATIVE (NEGATIVE) 04/28/17 14:32 Urine Bilirubin NEGATIVE (NEGATIVE) 04/28/17 14:32 Urine Urobilinogen 1.0 E.U./dL (0.2 - 1.0) 04/28/17 14:32 Ur Leukocyte Esterase TRACE (NEGATIVE) H 04/28/17 14:32 Urine RBC 0-2 /hpf (0-5) 04/28/17 14:32 Urine WBC 10-25 /hpf (0-5) H 04/28/17 14:32 Ur Epithelial Cells NONE SEEN /lpf (FEW) 04/28/17 14:32 Urine Bacteria FEW /hpf (NONE SEEN) 04/28/17 14:32 - Physical Exam Vitals and I&O: Vital Signs Temp 98.2 F 05/03/17 07:29 Pulse 69 05/03/17 09:19 Resp 22 05/03/17 07:50 BP 139/74 05/03/17 09:19 Pulse Ox 100 05/03/17 07:50 Intake & Output 05/02/1718 05/03/17 18:59 06:59 18:59 Intake Total 250 120 Balance 250 120 Intake: Oral 250 120 Other: # Voids 2 2 # Bowel Movements 0 2 Active Medications: Current Medications Acetaminophen (Tylenol) 650 mg PO Q6HR PRN PRN Reason: FEVER, NEWELL, PAIN Stop: 06/28/17 17:32 Last Admin: 04/30/17 08:29 Dose: 650 mg Acetaminophen/Hydrocodone Bitart ([place] 5mg/325mg) 1 tab PO Q12H PRN PRN Reason: CHRONIC PAIN Stop: 06/28/17 17:32 Last Admin: 05/02/17 20:52 Dose: 1 tab Albuterol Sulfate (Albuterol 2.5mg/3ml Neb Ud) 2.5 mg HHN Q4HRT PRN PRN Reason: Shortness of Breath Stop: 06/28/17 17:32 Last Admin: 05/02/17 20:59 Dose: 2.5 mg Amlodipine Besylate (Norvasc) 10 mg PO DAILY [facility] Stop: 06/29/17 08:59 Last Admin: 05/03/17 09:19 Dose: 10 mg Artificial Tears (Artificial Tears Ophth Soln) 1 drop EACH EYE TID [facility] Stop: 06/28/17 20:59 Last Admin: 05/02/17 21:20 Dose: 1 drop Buspirone HCl (Buspar) 5 mg PO BID MONSE PRN Reason: Protocol Stop: 06/29/17 08:59 Last Admin: 05/03/17 09:14 Dose: 5 mg Cholecalciferol (Vitamin D3) 5,000 iu PO DAILY [facility] Stop: 06/29/17 08:59 Last Admin: 05/03/17 09:14 Dose: 5,000 iu Citalopram Hydrobromide (Celexa) 30 mg PO DAILY [facility] Stop: 06/29/17 08:59 Last Admin: 05/03/17 09:12 Dose: 30 mg Clopidogrel Bisulfate (Plavix) 75 mg PO DAILY MON[facility] Stop: 06/29/17 08:59 Last Admin: 05/03/17 09:14 Dose: 75 mg Doxycycline Hyclate (Vibramycin) 100 mg PO Q12HR [facility] Stop: 05/07/17 20:59 Last Admin: 05/03/17 09:15 Dose: 100 mg Furosemide (Lasix) 40 mg PO DAILY MON[facility] Stop: 06/29/17 08:59 Last Admin: 05/03/17 09:15 Dose: 40 mg Lactulose (Cephulac) 10 gm PO TID MONSE Stop: 06/28/17 20:59 Last Admin: 05/03/17 09:20 Dose: 10 gm Latanoprost ([facility]) 1 drop EACH EYE HS MONSE Stop: 06/28/17 20:59 Last Admin: 05/02/17 21:20 Dose: 1 drop Levothyroxine Sodium (Synthroid) 0.2 mg PO QDAC MONSE Stop: 06/29/17 07:29 Last Admin: 05/03/17 06:48 Dose: 0.2 mg Lorazepam (Ativan) 0.5 mg PO Q8HR PRN; Protocol PRN Reason: Anxiety Stop: 06/27/17 20:28 Last Admin: 05/03/17 02:05 Dose: 0.5 mg Losartan Potassium (Cozaar) 100 mg PO DAILY [facility] Stop: 06/29/17 08:59 Last Admin: 05/03/17 09:19 Dose: Not Given Metoprolol Succinate (Toprol Xl) 25 mg PO DAILY [facility] Stop: 06/29/17 08:59 Last Admin: 05/03/17 09:16 Dose: 25 mg Mupirocin (Bactroban Oint) 1 appl NS BID MONSE Stop: 05/04/17 17:01 Last Admin: 05/02/17 18:04 Dose: 1 appl Olanzapine (Zyprexa) 5 mg PO HS MONSE PRN Reason: Protocol Stop: 06/30/17 20:59 Last Admin: 05/02/17 20:45 Dose: 5 mg Olanzapine (Zyprexa) 5 mg PO DAILY MONSE PRN Reason: Protocol Stop: 07/03/17 08:59 Pregabalin (Lyrica) 75 mg PO HS MONSE Stop: 06/28/17 20:59 Last Admin: 05/02/17 20:44 Dose: 75 mg Zolpidem Tartrate (Ambien) 5 mg PO HS PRN PRN Reason: Insomnia Stop: 06/28/17 21:43 Last Admin: 05/02/17 20:53 Dose: 5 mg General: alert HEENT: NC/AT, PERRLA Neck: Supple Lungs: CTAB Cardiovascular: RRR, Normal S1, Normal S2, without murmur Abdomen: soft, non-tender, non-distended, positive bowel sound Neurological: alert - Procedures Procedures: Procedures Procedure Code Date OTHER GROUP THERAPY 94.44 01/13/13 Internal Medicine Assmt/Plan - Assessment Assessment: anemia glaucoma cirrhosis left eye blindness copd acute uti - Plan Plan: encourage fluids continue levaquin continue current orders Nutritional Asmnt/Malnutr-PDOC - Dietary Evaluation Malnutrition Findings (Please click <Entered> for more info): Nutritional Asmnt/Malnutrition Start: 05/02/17 13: 57 Text: Status: Complete Freq: Document 05/02/17 13:57 [email or web address] (Rec: 05/02/17 14:03 [email or web address] [id number]) Nutritional Asmnt/Malnutrition Patient General Information Nutritional Screening Moderate Risk Diagnosis psychosis Pertinent Medical Hx/Surgical Hx COPD, schizophrenia, HTN, DM, anemia, glaucomma, cirrhosis, ascites Subjective Information Pt A&O x 2, suspicious of others, not appropriate for interview. PO intake has been 50-75% of pureed diet, did refuse 1 meal, but otherwise eating well. Current Diet Order/ Nutrition Support pureed Patient / S.O Not Indicated Pertinent Medications vitamin d, plavix, lasix, lactulose, synthroid Pertinent Labs 04/28 Na: 134, glucose: 120-134 - well controlled for no DM diet, BNP: 235 Nutritional Hx/Data Height 4 ft 9 in Height (Calculated Centimeters) 144.8 Current Weight (lbs) 204 lb Weight (Calculated Kilograms) 92.5 Weight (Calculated Grams) 37984.8 [place] Body Weight 92 lbs % [place] Body Weight 222 Body Mass Index (BMI) 44.1 Weight Status Morbidly Obese GI Symptoms GI Symptoms None Last BM 05/02 Difficult in: Chewing Skin Integrity/Comment: intact, no edema noted Current %PO Fair (50-74%) Estimated Nutritional Goals BEE in Kcals: Adj wt of IBW Calories/Kcals/Kg 25-30 Kcals Calculated [id number] Protein: Adj wt of IBW Protein g/k Protein Calculated 55 Fluid: ml 2632-7836 mL Nutritional Problem 1. Problem Problem overweight/obesity Etiology lifestyle Signs/Symptoms: BMI: 44 Malnutrition Alert Is there a minimum of two criteria No selected? Query Text:Check all the applicable criteria. A minimum of two criteria are recommended for diagnosis of either severe or non-severe malnutrition. Malnutrition Related to Morbid Obesity Malnutrition related to morbid obesity BMI> or equal to 40 Query Text:(Any 1 Criteria met) Malnutrition related to morbid obesity Yes Intervention/Recommendation Comments 1. Continue pureed diet as ordered. Do not recommend CCHO restriction as patient with only fair PO intake and POC glucose is controlled. Expected Outcomes/Goals Expected Outcomes/Goals PO intake >50%, labs: WNL monitor wt, labs, skin, PO intake
[2017-05-03] MEDS: Polyvinyl Alcohol Ophth Soln 15 mL Bottle EACH EYE SCH ×2 (17:30→21:58)
[2017-05-03] MEDS: Albuterol Nebulizer 2.5mg/3mL HHN PRN (19:26)
[2017-05-04] MEDS: Albuterol Nebulizer 2.5mg/3mL HHN PRN ×3 (00:12→19:00)
[2017-05-04] MEDS: Hydrocodone/APAP 5mg/325mg Tab PO PRN ×2 (02:21→17:06)
[2017-05-04] MEDS: Levothyroxine 0.1 Mg Tab PO SCH (06:48)
[2017-05-04] MEDS: Lactulose 10 Gm/15 mL 30mL UDC PO SCH ×3 (09:10→20:56)
--- NOTE | 2017-05-04 15:23 | Internal Medicine Prog Note ---
Internal Medicine Subjective - Subjective Service Date: 05/04/17 Patient is:: awake, verbal Per staff patient has:: tolerating meds Internal Medicine Objective - Results Result Diagrams: 04/28/17 13:04 04/28/17 13:04 Recent Labs: Laboratory Last Values WBC 6.3 Th/cmm (4.8-10.8) 04/28/17 13:04 RBC 3.50 Mil/cmm (3.80-5.10) L 04/28/17 13:04 Hgb 10.1 gm/dL (12-16) L D 04/28/17 13:04 Hct 30.9 % (41.0-60) L D 04/28/17 13:04 MCV 88.4 fl (81-100) 04/28/17 13:04 MCH 28.8 pg (27.0-31.0) 04/28/17 13:04 MCHC Differential 32.5 pg (28.0-36.0) 04/28/17 13:04 RDW 17.4 % (11.5-20.0) 04/28/17 13:04 Plt Count 90 Th/cmm (150-400) L D 04/28/17 13:04 MPV 10.3 fl 04/28/17 13:04 Band Neutrophils % 1 % (0-10) 04/28/17 13:04 Neutrophils (Manual) 70 % (40-80) 04/28/17 13:04 Lymphocytes 15 % (20-50) L 04/28/17 13:04 Monocytes 7 % (2-10) 04/28/17 13:04 Eosinophils 7 % (0-5) H 04/28/17 13:04 Basophils 0 % (0-3) 04/28/17 13:04 Specimen Source Arterial 04/28/17 14:08 Sample Site Right Radial 04/28/17 14:08 pH 7.41 (7.35-7.45) 04/28/17 14:08 pCO2 44.0 mmHg (35.0-45.0) 04/28/17 14:08 pO2 57.0 mmHg (80.0-100.0) L 04/28/17 14:08 HCO3 26.9 mEq/L (20.0-26.0) H 04/28/17 14:08 Base Excess 2.8 mEq/L (-3.0-3.0) 04/28/17 14:08 O2 Saturation 90.0 % (92.0-100.0) L 04/28/17 14:08 Damian Test YES 04/28/17 14:08 Vent Rate NA 04/28/17 14:08 Inspired O2 21 04/28/17 14:08 Tidal Volume NA 04/28/17 14:08 PEEP NA 04/28/17 14:08 Pressure (ins/psv/peep) NA 04/28/17 14:08 Critical Value E.BARRIOS 04/28/17 14:08 Sodium 134 mEq/L (136-145) L 04/28/17 13:04 Potassium 3.9 mEq/L (3.5-5.1) 04/28/17 13:04 Chloride 101 mEq/L (98-107) 04/28/17 13:04 Carbon Dioxide 26.4 mEq/L (21.0-31.0) 04/28/17 13:04 Anion Gap 10.5 (7.0-16.0) 04/28/17 13:04 BUN 16 mg/dL (7-25) 04/28/17 13:04 Creatinine 0.8 mg/dL (0.6-1.2) 04/28/17 13:04 Est GFR ( Amer) > 60.0 ml/min (>90) 04/28/17 13:04 Est GFR (Non-Af Amer) > 60.0 ml/min 04/28/17 13:04 BUN/Creatinine Ratio 20.0 04/28/17 13:04 Glucose 120 mg/dL (70-105) H 04/28/17 13:04 POC Glucose 134 MG/DL (70 - 105) H 04/29/17 06:33 Calcium 9.0 mg/dL (8.6-10.3) 04/28/17 13:04 Total Bilirubin 1.8 mg/dL (0.3-1.0) H 04/28/17 13:04 AST 122 U/L (13-39) H 04/28/17 13:04 ALT 54 U/L (7-52) H 04/28/17 13:04 Alkaline Phosphatase 164 U/L (34-104) H 04/28/17 13:04 B-Natriuretic Peptide 235.0 pg/mL (5.0-100.0) H 04/28/17 13:04 Total Protein 6.8 gm/dL (6.0-8.3) 04/28/17 13:04 Albumin 2.5 gm/dL (3.7-5.3) L 04/28/17 13:04 Globulin 4.3 gm/dL 04/28/17 13:04 Albumin/Globulin Ratio 0.6 (1.0-1.8) L 04/28/17 13:04 TSH 0.31 uIU/ml (0.34-5.60) L 04/28/17 13:04 Urine Source RANDOM 04/28/17 14:32 Urine Color YELLOW 04/28/17 14:32 Urine Clarity HAZY (CLEAR) 04/28/17 14:32 Urine pH 6.0 (4.6 - 8.0) 04/28/17 14:32 Ur Specific [place] 1.020 (1.005-1.030) 04/28/17 14:32 Urine Protein NEGATIVE mg/dL (NEGATIVE) 04/28/17 14:32 Urine Glucose (UA) NEGATIVE mg/dL (NEGATIVE) 04/28/17 14:32 Urine Ketones NEGATIVE mg/dL (NEGATIVE) 04/28/17 14:32 Urine Blood NEGATIVE (NEGATIVE) 04/28/17 14:32 Urine Nitrate NEGATIVE (NEGATIVE) 04/28/17 14:32 Urine Bilirubin NEGATIVE (NEGATIVE) 04/28/17 14:32 Urine Urobilinogen 1.0 E.U./dL (0.2 - 1.0) 04/28/17 14:32 Ur Leukocyte Esterase TRACE (NEGATIVE) H 04/28/17 14:32 Urine RBC 0-2 /hpf (0-5) 04/28/17 14:32 Urine WBC 10-25 /hpf (0-5) H 04/28/17 14:32 Ur Epithelial Cells NONE SEEN /lpf (FEW) 04/28/17 14:32 Urine Bacteria FEW /hpf (NONE SEEN) 04/28/17 14:32 - Physical Exam Vitals and I&O: Vital Signs Temp 97.8 F 05/04/17 06:54 Pulse 68 05/04/17 09:09 Resp 18 05/04/17 08:05 BP 134/66 05/04/17 09:09 Pulse Ox 97 05/04/17 08:05 Intake & Output 05/03/17 05/04/17 05/04/17 18:59 06:59 18:59 Intake Total 1320 120 Balance 1320 120 Intake: Oral 1320 120 Other: # Voids 2 2 # Bowel Movements 0 Active Medications: Current Medications Acetaminophen (Tylenol) 650 mg PO Q6HR PRN PRN Reason: FEVER, NEWELL, PAIN Stop: 06/28/17 17:32 Last Admin: 04/30/17 08:29 Dose: 650 mg Acetaminophen/Hydrocodone Bitart ([place] 5mg/325mg) 1 tab PO Q12H PRN PRN Reason: CHRONIC PAIN Stop: 06/28/17 17:32 Last Admin: 05/04/17 02:21 Dose: 1 tab Albuterol Sulfate (Albuterol 2.5mg/3ml Neb Ud) 2.5 mg HHN Q4HRT PRN PRN Reason: Shortness of Breath Stop: 06/28/17 17:32 Last Admin: 05/04/17 00:12 Dose: 2.5 mg Amlodipine Besylate (Norvasc) 10 mg PO DAILY [facility] Stop: 06/29/17 08:59 Last Admin: 05/04/17 09:07 Dose: 10 mg Artificial Tears (Artificial Tears Ophth Soln) 1 drop EACH EYE TID [facility] Stop: 06/28/17 20:59 Last Admin: 05/03/17 21:58 Dose: 1 drop Buspirone HCl (Buspar) 5 mg PO BID MONSE PRN Reason: Protocol Stop: 06/29/17 08:59 Last Admin: 05/04/17 09:10 Dose: 5 mg Cholecalciferol (Vitamin D3) 5,000 iu PO DAILY [facility] Stop: 06/29/17 08:59 Last Admin: 05/04/17 09:05 Dose: 5,000 iu Citalopram Hydrobromide (Celexa) 30 mg PO DAILY [facility] Stop: 06/29/17 08:59 Last Admin: 05/04/17 09:05 Dose: 30 mg Clopidogrel Bisulfate (Plavix) 75 mg PO DAILY [facility] Stop: 06/29/17 08:59 Last Admin: 05/04/17 09:06 Dose: 75 mg Doxycycline Hyclate (Vibramycin) 100 mg PO Q12HR [facility] Stop: 05/07/17 20:59 Last Admin: 02/22/18 09:27 Dose: 100 mg Furosemide (Lasix) 40 mg PO DAILY [facility] Stop: 06/29/17 08:59 Last Admin: 05/04/17 09:09 Dose: 40 mg Lactulose (Cephulac) 10 gm PO TID [facility] Stop: 06/28/17 20:59 Last Admin: 05/04/17 09:10 Dose: 10 gm Latanoprost (Xalatan 0.005% Oph Soln) 1 drop EACH EYE HS [facility] Stop: 06/28/17 20:59 Last Admin: 05/03/17 21:58 Dose: 1 drop Levothyroxine Sodium (Synthroid) 0.2 mg PO QDAC [facility] Stop: 06/29/17 07:29 Last Admin: 05/04/17 06:48 Dose: 0.2 mg Lorazepam (Ativan) 0.5 mg PO Q8HR PRN; Protocol PRN Reason: Anxiety Stop: 06/27/17 20:28 Last Admin: 05/03/17 18:10 Dose: 0.5 mg Losartan Potassium (Cozaar) 100 mg PO DAILY [facility] Stop: 06/29/17 08:59 Last Admin: 05/04/17 09:09 Dose: 100 mg Metoprolol Succinate (Toprol Xl) 25 mg PO DAILY [facility] Stop: 06/29/17 08:59 Last Admin: 05/04/17 09:08 Dose: 25 mg Mupirocin (Bactroban Oint) 1 appl NS BID [facility] Stop: 05/04/17 17:01 Last Admin: 05/03/17 17:30 Dose: Not Given Olanzapine (Zyprexa) 5 mg PO HS MONSE PRN Reason: Protocol Stop: 06/30/17 20:59 Last Admin: 05/03/17 21:58 Dose: 5 mg Olanzapine (Zyprexa) 5 mg PO DAILY [facility] PRN Reason: Protocol Stop: 07/03/17 08:59 Pregabalin (Lyrica) 75 mg PO HS [facility] Stop: 06/28/17 20:59 Last Admin: 05/03/17 21:58 Dose: 75 mg Zolpidem Tartrate (Ambien) 5 mg PO HS PRN PRN Reason: Insomnia Stop: 06/28/17 21:43 Last Admin: 05/03/17 23:04 Dose: 5 mg General: alert HEENT: NC/AT, PERRLA Neck: Supple Lungs: CTAB Cardiovascular: RRR, Normal S1, Normal S2, without murmur Abdomen: soft, non-tender, non-distended, positive bowel sound Neurological: alert - Procedures Procedures: Procedures Procedure Code Date OTHER GROUP THERAPY 94.44 01/13/13 Internal Medicine Assmt/Plan - Assessment Assessment: anemia glaucoma cirrhosis left eye blindness copd acute uti - Plan Plan: encourage fluids continue levaquin continue current orders Nutritional Asmnt/Malnutr-PDOC - Dietary Evaluation Malnutrition Findings (Please click <Entered> for more info): Nutritional Asmnt/Malnutrition Start: 05/02/17 13: 57 Text: Status: Complete Freq: Document 05/02/17 13:57 [email or web address] (Rec: 05/02/17 14:03 [email or web address]) Nutritional Asmnt/Malnutrition Patient General Information Nutritional Screening Moderate Risk Diagnosis psychosis Pertinent Medical Hx/Surgical Hx COPD, schizophrenia, HTN, DM, anemia, glaucomma, cirrhosis, ascites Subjective Information Pt A&O x 2, suspicious of others, not appropriate for interview. PO intake has been 50-75% of pureed diet, did refuse 1 meal, but otherwise eating well. Current Diet Order/ Nutrition Support pureed Patient / S.O Not Indicated Pertinent Medications vitamin d, plavix, lasix, lactulose, synthroid Pertinent Labs 04/28 Na: 134, glucose: 120-134 - well controlled for no DM diet, BNP: 235 Nutritional Hx/Data Height 4 ft 9 in Height (Calculated Centimeters) 144.8 Current Weight (lbs) 204 lb Weight (Calculated Kilograms) 92.5 Weight (Calculated Grams) 71510.8 [place] Body Weight 92 lbs % [place] Body Weight 222 Body Mass Index (BMI) 44.1 Weight Status Morbidly Obese GI Symptoms GI Symptoms None Last BM 05/02 Difficult in: Chewing Skin Integrity/Comment: intact, no edema noted Current %PO Fair (50-74%) Estimated Nutritional Goals BEE in Kcals: Adj wt of IBW Calories/Kcals/Kg 25-30 Kcals Calculated 1621-4454 Protein: Adj wt of IBW Protein g/k Protein Calculated 55 Fluid: ml 3903-1757 mL Nutritional Problem 1. Problem Problem overweight/obesity Etiology lifestyle Signs/Symptoms: BMI: 44 Malnutrition Alert Is there a minimum of two criteria No selected? Query Text:Check all the applicable criteria. A minimum of two criteria are recommended for diagnosis of either severe or non-severe malnutrition. Malnutrition Related to Morbid Obesity Malnutrition related to morbid obesity BMI> or equal to 40 Query Text:(Any 1 Criteria met) Malnutrition related to morbid obesity Yes Intervention/Recommendation Comments 1. Continue pureed diet as ordered. Do not recommend CCHO restriction as patient with only fair PO intake and POC glucose is controlled. Expected Outcomes/Goals Expected Outcomes/Goals PO intake >50%, labs: WNL monitor wt, labs, skin, PO intake
[2017-05-04] MEDS: Multivitamin w/ Minerals Tab PO SCH (16:17)
[2017-05-04] MEDS: Polyvinyl Alcohol Ophth Soln 15 mL Bottle EACH EYE SCH (20:42)
--- NOTE | 2017-05-04 22:44 | Progress Notes ---
DATE: 05/04/2017 The patient remains symptomatic, noting she is still having suicidal thoughts with feeling mildly better, somewhat more hopeful, less anxious, less panicky, noting her panic is less. She is calmer on exam. Tolerant of increased dose of Zyprexa. Sleeping well. Eating well. She remains reclusive and isolated, however. ASSESSMENT: The patient remains down, depressed, anxious, still with ongoing SI, but improvement noted. PLAN: We will continue to monitor given recent dose increase of medications. We will continue at current dose. JOB# [id number]
[2017-05-05] MEDS: Levothyroxine 0.1 Mg Tab PO SCH (06:34)
--- NOTE | 2017-05-05 08:19 | Progress Notes ---
DATE: 05/05/2017 The patient states that she is still having vague suicidal ideations, still hopeless and despairing. These are thoughts and feelings highly associated with suicidal state. She remains reclusive and isolated and still with panic and anxiety, but she states she is feeling somewhat better. Feels the Zyprexa in the morning is helping. Some mild tremors noted on exam, worsens when she talks. ASSESSMENT: The patient remains depressed, anxious, not safe for discharge, still ongoing anxiety. PLAN: We will continue to monitor given her ongoing symptoms, not safe for discharge with some improvement certainly noted. [facility]# [id number]
[2017-05-05] MEDS: Lactulose 10 Gm/15 mL 30mL UDC PO SCH ×3 (08:48→21:31)
[2017-05-05] MEDS: Multivitamin w/ Minerals Tab PO SCH (08:49)
[2017-05-05] MEDS: Polyvinyl Alcohol Ophth Soln 15 mL Bottle EACH EYE SCH ×3 (08:57→21:25)
--- NOTE | 2017-05-05 13:24 | Internal Medicine Prog Note ---
Internal Medicine Subjective - Subjective Service Date: 05/05/17 Patient is:: awake, verbal Per staff patient has:: tolerating meds Internal Medicine Objective - Results Result Diagrams: 04/28/17 13:04 04/28/17 13:04 Recent Labs: Laboratory Last Values WBC 6.3 Th/cmm (4.8-10.8) 04/28/17 13:04 RBC 3.50 Mil/cmm (3.80-5.10) L 04/28/17 13:04 Hgb 10.1 gm/dL (12-16) L D 04/28/17 13:04 Hct 30.9 % (41.0-60) L D 04/28/17 13:04 MCV 88.4 fl (81-100) 04/28/17 13:04 MCH 28.8 pg (27.0-31.0) 04/28/17 13:04 MCHC Differential 32.5 pg (28.0-36.0) 04/28/17 13:04 RDW 17.4 % (11.5-20.0) 04/28/17 13:04 Plt Count 90 Th/cmm (150-400) L D 04/28/17 13:04 MPV 10.3 fl 04/28/17 13:04 Band Neutrophils % 1 % (0-10) 04/28/17 13:04 Neutrophils (Manual) 70 % (40-80) 04/28/17 13:04 Lymphocytes 15 % (20-50) L 04/28/17 13:04 Monocytes 7 % (2-10) 04/28/17 13:04 Eosinophils 7 % (0-5) H 04/28/17 13:04 Basophils 0 % (0-3) 04/28/17 13:04 Specimen Source Arterial 04/28/17 14:08 Sample Site Right Radial 04/28/17 14:08 pH 7.41 (7.35-7.45) 04/28/17 14:08 pCO2 44.0 mmHg (35.0-45.0) 04/28/17 14:08 pO2 57.0 mmHg (80.0-100.0) L 04/28/17 14:08 HCO3 26.9 mEq/L (20.0-26.0) H 04/28/17 14:08 Base Excess 2.8 mEq/L (-3.0-3.0) 04/28/17 14:08 O2 Saturation 90.0 % (92.0-100.0) L 04/28/17 14:08 Damian Test YES 04/28/17 14:08 Vent Rate NA 04/28/17 14:08 Inspired O2 21 04/28/17 14:08 Tidal Volume NA 04/28/17 14:08 PEEP NA 04/28/17 14:08 Pressure (ins/psv/peep) NA 04/28/17 14:08 Critical Value E.BARRIOS 04/28/17 14:08 Sodium 134 mEq/L (136-145) L 04/28/17 13:04 Potassium 3.9 mEq/L (3.5-5.1) 04/28/17 13:04 Chloride 101 mEq/L (98-107) 04/28/17 13:04 Carbon Dioxide 26.4 mEq/L (21.0-31.0) 04/28/17 13:04 Anion Gap 10.5 (7.0-16.0) 04/28/17 13:04 BUN 16 mg/dL (7-25) 04/28/17 13:04 Creatinine 0.8 mg/dL (0.6-1.2) 04/28/17 13:04 Est GFR ( Amer) > 60.0 ml/min (>90) 04/28/17 13:04 Est GFR (Non-Af Amer) > 60.0 ml/min 04/28/17 13:04 BUN/Creatinine Ratio 20.0 04/28/17 13:04 Glucose 120 mg/dL (70-105) H 04/28/17 13:04 POC Glucose 134 MG/DL (70 - 105) H 04/29/17 06:33 Calcium 9.0 mg/dL (8.6-10.3) 04/28/17 13:04 Total Bilirubin 1.8 mg/dL (0.3-1.0) H 04/28/17 13:04 AST 122 U/L (13-39) H 04/28/17 13:04 ALT 54 U/L (7-52) H 04/28/17 13:04 Alkaline Phosphatase 164 U/L (34-104) H 04/28/17 13:04 B-Natriuretic Peptide 235.0 pg/mL (5.0-100.0) H 04/28/17 13:04 Total Protein 6.8 gm/dL (6.0-8.3) 04/28/17 13:04 Albumin 2.5 gm/dL (3.7-5.3) L 04/28/17 13:04 Globulin 4.3 gm/dL 04/28/17 13:04 Albumin/Globulin Ratio 0.6 (1.0-1.8) L 04/28/17 13:04 TSH 0.31 uIU/ml (0.34-5.60) L 04/28/17 13:04 Urine Source RANDOM 04/28/17 14:32 Urine Color YELLOW 04/28/17 14:32 Urine Clarity HAZY (CLEAR) 04/28/17 14:32 Urine pH 6.0 (4.6 - 8.0) 04/28/17 14:32 Ur Specific [place] 1.020 (1.005-1.030) 04/28/17 14:32 Urine Protein NEGATIVE mg/dL (NEGATIVE) 04/28/17 14:32 Urine Glucose (UA) NEGATIVE mg/dL (NEGATIVE) 04/28/17 14:32 Urine Ketones NEGATIVE mg/dL (NEGATIVE) 04/28/17 14:32 Urine Blood NEGATIVE (NEGATIVE) 04/28/17 14:32 Urine Nitrate NEGATIVE (NEGATIVE) 04/28/17 14:32 Urine Bilirubin NEGATIVE (NEGATIVE) 04/28/17 14:32 Urine Urobilinogen 1.0 E.U./dL (0.2 - 1.0) 04/28/17 14:32 Ur Leukocyte Esterase TRACE (NEGATIVE) H 04/28/17 14:32 Urine RBC 0-2 /hpf (0-5) 04/28/17 14:32 Urine WBC 10-25 /hpf (0-5) H 04/28/17 14:32 Ur Epithelial Cells NONE SEEN /lpf (FEW) 04/28/17 14:32 Urine Bacteria FEW /hpf (NONE SEEN) 04/28/17 14:32 - Physical Exam Vitals and I&O: Vital Signs Temp 97.8 F 05/05/17 06:40 Pulse 68 05/05/17 08:56 Resp 20 05/05/17 07:45 BP 147/76 05/05/17 08:56 Pulse Ox 100 05/05/17 07:45 Intake & Output 05/04/17 05/05/17 05/05/17 18:59 06:59 18:59 Intake Total 1200 500 Balance 1200 500 Intake: Oral 1200 500 Other: # Voids 3 2 # Bowel Movements 1 0 Active Medications: Current Medications Acetaminophen (Tylenol) 650 mg PO Q6HR PRN PRN Reason: FEVER, NEWELL, PAIN Stop: 06/28/17 17:32 Last Admin: 04/30/17 08:29 Dose: 650 mg Acetaminophen/Hydrocodone Bitart ([place] 5mg/325mg) 1 tab PO Q12H PRN PRN Reason: CHRONIC PAIN Stop: 06/28/17 17:32 Last Admin: 05/04/17 17:06 Dose: 1 tab Albuterol Sulfate (Albuterol 2.5mg/3ml Neb Ud) 2.5 mg HHN Q4HRT PRN PRN Reason: Shortness of Breath Stop: 06/28/17 17:32 Last Admin: 05/04/17 19:00 Dose: 2.5 mg Amlodipine Besylate (Norvasc) 10 mg PO DAILY [facility] Stop: 06/29/17 08:59 Last Admin: 05/05/17 08:52 Dose: 10 mg Artificial Tears (Artificial Tears Ophth Soln) 1 drop EACH EYE TID [facility] Stop: 06/28/17 20:59 Last Admin: 05/05/17 08:57 Dose: 1 drop Buspirone HCl (Buspar) 5 mg PO BID MONSE PRN Reason: Protocol Stop: 06/29/17 08:59 Last Admin: 05/05/17 08:49 Dose: 5 mg Cholecalciferol (Vitamin D3) 5,000 iu PO DAILY [facility] Stop: 06/29/17 08:59 Last Admin: 05/05/17 08:49 Dose: 5,000 iu Citalopram Hydrobromide (Celexa) 30 mg PO DAILY [facility] Stop: 06/29/17 08:59 Last Admin: 05/05/17 08:49 Dose: 30 mg Clopidogrel Bisulfate (Plavix) 75 mg PO DAILY [facility] Stop: 06/29/17 08:59 Last Admin: 05/05/17 08:49 Dose: 75 mg Doxycycline Hyclate (Vibramycin) 100 mg PO Q12HR [facility] Stop: 05/07/17 20:59 Last Admin: 05/05/17 08:50 Dose: 100 mg Furosemide (Lasix) 40 mg PO DAILY [facility] Stop: 06/29/17 08:59 Last Admin: 05/05/17 08:56 Dose: 40 mg Lactulose (Cephulac) 10 gm PO TID [facility] Stop: 06/28/17 20:59 Last Admin: 05/05/17 08:48 Dose: 10 gm [facility] 1 drop EACH EYE HS [facility] Stop: 06/28/17 20:59 Last Admin: 05/04/17 20:43 Dose: 1 drop Levothyroxine Sodium (Synthroid) 0.2 mg PO QDAC [facility] Stop: 06/29/17 07:29 Last Admin: 05/05/17 06:34 Dose: 0.2 mg Lorazepam (Ativan) 0.5 mg PO Q8HR PRN; Protocol PRN Reason: Anxiety Stop: 06/27/17 20:28 Last Admin: 05/05/17 08:51 Dose: 0.5 mg Losartan Potassium (Cozaar) 100 mg PO DAILY [facility] Stop: 06/29/17 08:59 Last Admin: 05/05/17 08:53 Dose: 100 mg Metoprolol Succinate (Toprol Xl) 25 mg PO DAILY [facility] Stop: 06/29/17 08:59 Last Admin: 05/05/17 08:56 Dose: 25 mg Olanzapine (Zyprexa) 5 mg PO HS MONSE PRN Reason: Protocol Stop: 06/30/17 20:59 Last Admin: 05/04/17 20:41 Dose: 5 mg Olanzapine (Zyprexa) 5 mg PO DAILY [facility] PRN Reason: Protocol Stop: 07/03/17 08:59 Last Admin: 05/05/17 08:52 Dose: 5 mg Pregabalin (Lyrica) 75 mg PO HS [facility] Stop: 06/28/17 20:59 Last Admin: 05/04/17 20:41 Dose: 75 mg Zolpidem Tartrate (Ambien) 5 mg PO HS PRN PRN Reason: Insomnia Stop: 06/28/17 21:43 Last Admin: 05/04/17 23:35 Dose: 5 mg General: alert HEENT: NC/AT, PERRLA Neck: Supple Lungs: CTAB Cardiovascular: RRR, Normal S1, Normal S2, without murmur Abdomen: soft, non-tender, non-distended, positive bowel sound Neurological: alert - Procedures Procedures: Procedures Procedure Code Date OTHER GROUP THERAPY 94.44 01/13/13 Internal Medicine Assmt/Plan - Assessment Assessment: anemia glaucoma cirrhosis left eye blindness copd acute uti - Plan Plan: encourage fluids continue levaquin continue current orders Nutritional Asmnt/Malnutr-PDOC - Dietary Evaluation Malnutrition Findings (Please click <Entered> for more info): Nutritional Asmnt/Malnutrition Start: 05/02/17 13: 57 Text: Status: Complete Freq: Document 05/02/17 13:57 [email or web address] (Rec: 05/02/17 14:03 [email or web address]) Nutritional Asmnt/Malnutrition Patient General Information Nutritional Screening Moderate Risk Diagnosis psychosis Pertinent Medical Hx/Surgical Hx COPD, schizophrenia, HTN, DM, anemia, glaucomma, cirrhosis, ascites Subjective Information Pt A&O x 2, suspicious of others, not appropriate for interview. PO intake has been 50-75% of pureed diet, did refuse 1 meal, but otherwise eating well. Current Diet Order/ Nutrition Support pureed Patient / S.O Not Indicated Pertinent Medications vitamin d, plavix, lasix, lactulose, synthroid Pertinent Labs 04/28 Na: 134, glucose: 120-134 - well controlled for no DM diet, BNP: 235 Nutritional Hx/Data Height 4 ft 9 in Height (Calculated Centimeters) 144.8 Current Weight (lbs) 204 lb Weight (Calculated Kilograms) 92.5 Weight (Calculated Grams) 33345.8 [place] Body Weight 92 lbs % [place] Body Weight 222 Body Mass Index (BMI) 44.1 Weight Status Morbidly Obese GI Symptoms GI Symptoms None Last BM 05/02 Difficult in: Chewing Skin Integrity/Comment: intact, no edema noted Current %PO Fair (50-74%) Estimated Nutritional Goals BEE in Kcals: Adj wt of IBW Calories/Kcals/Kg 25-30 Kcals Calculated 4031-7626 Protein: Adj wt of IBW Protein g/k Protein Calculated 55 Fluid: ml 7550-5771 mL Nutritional Problem 1. Problem Problem overweight/obesity Etiology lifestyle Signs/Symptoms: BMI: 44 Malnutrition Alert Is there a minimum of two criteria No selected? Query Text:Check all the applicable criteria. A minimum of two criteria are recommended for diagnosis of either severe or non-severe malnutrition. Malnutrition Related to Morbid Obesity Malnutrition related to morbid obesity BMI> or equal to 40 Query Text:(Any 1 Criteria met) Malnutrition related to morbid obesity Yes Intervention/Recommendation Comments 1. Continue pureed diet as ordered. Do not recommend CCHO restriction as patient with only fair PO intake and POC glucose is controlled. Expected Outcomes/Goals Expected Outcomes/Goals PO intake >50%, labs: WNL monitor wt, labs, skin, PO intake
[2017-05-05] MEDS: Albuterol Nebulizer 2.5mg/3mL HHN PRN ×2 (16:43→21:44)
[2017-05-06] MEDS: Levothyroxine 0.1 Mg Tab PO SCH (06:57)
[2017-05-06] MEDS: Multivitamin w/ Minerals Tab PO SCH (08:51)
[2017-05-06] MEDS: Hydrocodone/APAP 5mg/325mg Tab PO PRN ×2 (08:53→21:16)
[2017-05-06] MEDS: Lactulose 10 Gm/15 mL 30mL UDC PO SCH ×3 (08:59→21:11)
[2017-05-06] MEDS: Polyvinyl Alcohol Ophth Soln 15 mL Bottle EACH EYE SCH ×4 (09:03→21:09)
--- NOTE | 2017-05-06 15:28 | Internal Medicine Prog Note ---
Internal Medicine Subjective - Subjective Patient seen and examined:: with staff, chart reviewed Patient is:: awake, verbal, interactive, in bed, agitated, confused Patient Complaints of:: unable to sleep Per staff patient has:: no adverse event, no episodes of fall, agitated, noncompliant, tolerating meds Internal Medicine Objective - Results Result Diagrams: 04/28/17 13:04 04/28/17 13:04 Recent Labs: Laboratory Last Values WBC 6.3 Th/cmm (4.8-10.8) 04/28/17 13:04 RBC 3.50 Mil/cmm (3.80-5.10) L 04/28/17 13:04 Hgb 10.1 gm/dL (12-16) L D 04/28/17 13:04 Hct 30.9 % (41.0-60) L D 04/28/17 13:04 MCV 88.4 fl (81-100) 04/28/17 13:04 MCH 28.8 pg (27.0-31.0) 04/28/17 13:04 MCHC Differential 32.5 pg (28.0-36.0) 04/28/17 13:04 RDW 17.4 % (11.5-20.0) 04/28/17 13:04 Plt Count 90 Th/cmm (150-400) L D 04/28/17 13:04 MPV 10.3 fl 04/28/17 13:04 Band Neutrophils % 1 % (0-10) 04/28/17 13:04 Neutrophils (Manual) 70 % (40-80) 04/28/17 13:04 Lymphocytes 15 % (20-50) L 04/28/17 13:04 Monocytes 7 % (2-10) 04/28/17 13:04 Eosinophils 7 % (0-5) H 04/28/17 13:04 Basophils 0 % (0-3) 04/28/17 13:04 Specimen Source Arterial 04/28/17 14:08 Sample Site Right Radial 04/28/17 14:08 pH 7.41 (7.35-7.45) 04/28/17 14:08 pCO2 44.0 mmHg (35.0-45.0) 04/28/17 14:08 pO2 57.0 mmHg (80.0-100.0) L 04/28/17 14:08 HCO3 26.9 mEq/L (20.0-26.0) H 04/28/17 14:08 Base Excess 2.8 mEq/L (-3.0-3.0) 04/28/17 14:08 O2 Saturation 90.0 % (92.0-100.0) L 04/28/17 14:08 Damian Test YES 04/28/17 14:08 Vent Rate NA 04/28/17 14:08 Inspired O2 21 04/28/17 14:08 Tidal Volume NA 04/28/17 14:08 PEEP NA 04/28/17 14:08 Pressure (ins/psv/peep) NA 04/28/17 14:08 Critical Value E.BARRIOS 04/28/17 14:08 Sodium 134 mEq/L (136-145) L 04/28/17 13:04 Potassium 3.9 mEq/L (3.5-5.1) 04/28/17 13:04 Chloride 101 mEq/L (98-107) 04/28/17 13:04 Carbon Dioxide 26.4 mEq/L (21.0-31.0) 04/28/17 13:04 Anion Gap 10.5 (7.0-16.0) 04/28/17 13:04 BUN 16 mg/dL (7-25) 04/28/17 13:04 Creatinine 0.8 mg/dL (0.6-1.2) 04/28/17 13:04 Est GFR ( Amer) > 60.0 ml/min (>90) 04/28/17 13:04 Est GFR (Non-Af Amer) > 60.0 ml/min 04/28/17 13:04 BUN/Creatinine Ratio 20.0 04/28/17 13:04 Glucose 120 mg/dL (70-105) H 04/28/17 13:04 POC Glucose 134 MG/DL (70 - 105) H 04/29/17 06:33 Calcium 9.0 mg/dL (8.6-10.3) 04/28/17 13:04 Total Bilirubin 1.8 mg/dL (0.3-1.0) H 04/28/17 13:04 AST 122 U/L (13-39) H 04/28/17 13:04 ALT 54 U/L (7-52) H 04/28/17 13:04 Alkaline Phosphatase 164 U/L (34-104) H 04/28/17 13:04 B-Natriuretic Peptide 235.0 pg/mL (5.0-100.0) H 04/28/17 13:04 Total Protein 6.8 gm/dL (6.0-8.3) 04/28/17 13:04 Albumin 2.5 gm/dL (3.7-5.3) L 04/28/17 13:04 Globulin 4.3 gm/dL 04/28/17 13:04 Albumin/Globulin Ratio 0.6 (1.0-1.8) L 04/28/17 13:04 TSH 0.31 uIU/ml (0.34-5.60) L 04/28/17 13:04 Urine Source RANDOM 04/28/17 14:32 Urine Color YELLOW 04/28/17 14:32 Urine Clarity HAZY (CLEAR) 04/28/17 14:32 Urine pH 6.0 (4.6 - 8.0) 04/28/17 14:32 Ur Specific [place] 1.020 (1.005-1.030) 04/28/17 14:32 Urine Protein NEGATIVE mg/dL (NEGATIVE) 04/28/17 14:32 Urine Glucose (UA) NEGATIVE mg/dL (NEGATIVE) 04/28/17 14:32 Urine Ketones NEGATIVE mg/dL (NEGATIVE) 04/28/17 14:32 Urine Blood NEGATIVE (NEGATIVE) 04/28/17 14:32 Urine Nitrate NEGATIVE (NEGATIVE) 04/28/17 14:32 Urine Bilirubin NEGATIVE (NEGATIVE) 04/28/17 14:32 Urine Urobilinogen 1.0 E.U./dL (0.2 - 1.0) 04/28/17 14:32 Ur Leukocyte Esterase TRACE (NEGATIVE) H 04/28/17 14:32 Urine RBC 0-2 /hpf (0-5) 04/28/17 14:32 Urine WBC 10-25 /hpf (0-5) H 04/28/17 14:32 Ur Epithelial Cells NONE SEEN /lpf (FEW) 04/28/17 14:32 Urine Bacteria FEW /hpf (NONE SEEN) 04/28/17 14:32 - Physical Exam Vitals and I&O: Vital Signs Temp 97.5 F 02/24/18 06:53 Pulse 63 05/06/17 08:52 Resp 20 05/06/17 06:53 BP 132/78 05/06/17 08:53 Pulse Ox 98 05/06/17 06:53 Intake & Output 05/05/17 05/06/17 05/06/17 18:59 06:59 18:59 Intake Total 1200 Balance 1200 Intake: Oral 1200 Other: # Voids 3 # Bowel Movements 1 Active Medications: Current Medications Acetaminophen (Tylenol) 650 mg PO Q6HR PRN PRN Reason: FEVER, NEWELL, PAIN Stop: 06/28/17 17:32 Last Admin: 04/30/17 08:29 Dose: 650 mg Acetaminophen/Hydrocodone Bitart ([place] 5mg/325mg) 1 tab PO Q12H PRN PRN Reason: CHRONIC PAIN Stop: 06/28/17 17:32 Last Admin: 05/06/17 08:53 Dose: 1 tab Albuterol Sulfate (Albuterol 2.5mg/3ml Neb Ud) 2.5 mg HHN Q4HRT PRN PRN Reason: Shortness of Breath Stop: 06/28/17 17:32 Last Admin: 05/05/17 21:44 Dose: 2.5 mg Amlodipine Besylate (Norvasc) 10 mg PO DAILY [facility] Stop: 06/29/17 08:59 Last Admin: 05/06/17 08:51 Dose: 10 mg Artificial Tears (Artificial Tears Ophth Soln) 1 drop EACH EYE TID [facility] Stop: 06/28/17 20:59 Last Admin: 05/06/17 13:41 Dose: 1 drop Buspirone HCl (Buspar) 5 mg PO BID MONSE PRN Reason: Protocol Stop: 06/29/17 08:59 Last Admin: 05/06/17 08:51 Dose: 5 mg Cholecalciferol (Vitamin D3) 5,000 iu PO DAILY [facility] Stop: 06/29/17 08:59 Last Admin: 05/06/17 08:49 Dose: 5,000 iu Citalopram Hydrobromide (Celexa) 30 mg PO DAILY [facility] Stop: 06/29/17 08:59 Last Admin: 05/06/17 08:50 Dose: 30 mg Clopidogrel Bisulfate (Plavix) 75 mg PO DAILY [facility] Stop: 06/29/17 08:59 Last Admin: 05/06/17 08:49 Dose: 75 mg Doxycycline Hyclate (Vibramycin) 100 mg PO Q12HR [facility] Stop: 05/07/17 20:59 Last Admin: 05/06/17 08:48 Dose: 100 mg Furosemide (Lasix) 40 mg PO DAILY [facility] Stop: 06/29/17 08:59 Last Admin: 05/06/17 08:53 Dose: 40 mg Lactulose (Cephulac) 10 gm PO TID [facility] Stop: 06/28/17 20:59 Last Admin: 05/06/17 13:41 Dose: Not Given Latanoprost (Xalatan 0.005% Oph Soln) 1 drop EACH EYE HS [facility] Stop: 06/28/17 20:59 Last Admin: 05/05/17 21:31 Dose: 1 drop Levothyroxine Sodium (Synthroid) 0.2 mg PO QDAC [facility] Stop: 06/29/17 07:29 Last Admin: 05/06/17 06:57 Dose: 0.2 mg Lorazepam (Ativan) 0.5 mg PO Q8HR PRN; Protocol PRN Reason: Anxiety Stop: 06/27/17 20:28 Last Admin: 05/05/17 08:51 Dose: 0.5 mg Losartan Potassium (Cozaar) 100 mg PO DAILY [facility] Stop: 06/29/17 08:59 Last Admin: 05/06/17 08:48 Dose: 100 mg Metoprolol Succinate (Toprol Xl) 25 mg PO DAILY [facility] Stop: 06/29/17 08:59 Last Admin: 05/06/17 08:52 Dose: 25 mg Olanzapine (Zyprexa) 5 mg PO HS MONSE PRN Reason: Protocol Stop: 06/30/17 20:59 Last Admin: 05/05/17 21:24 Dose: 5 mg Olanzapine (Zyprexa) 5 mg PO DAILY [facility] PRN Reason: Protocol Stop: 07/03/17 08:59 Last Admin: 05/06/17 08:52 Dose: 5 mg Pregabalin (Lyrica) 75 mg PO HS MONSE Stop: 06/28/17 20:59 Last Admin: 05/05/17 21:24 Dose: 75 mg Zolpidem Tartrate (Ambien) 5 mg PO HS PRN PRN Reason: Insomnia Stop: 06/28/17 21:43 Last Admin: 05/05/17 23:17 Dose: 5 mg General: demented HEENT: NC/AT, PERRLA Neck: Supple Lungs: CTAB Cardiovascular: RRR, Normal S1, Normal S2, without murmur Abdomen: soft, non-tender, non-distended, positive bowel sound Extremities: excoriation, atrophy Neurological: no change, disorganized, unsteady, unable to follow command - Procedures Procedures: Procedures Procedure Code Date OTHER GROUP THERAPY 94.44 01/13/13 Internal Medicine Assmt/Plan - Assessment Assessment: - Assessment Assessment: anemia glaucoma cirrhosis left eye blindness copd acute uti - Plan Plan: encourage fluids continue levaquin continue current orders - Plan Plan: encourage increase po intake dvt abd gastritis prophylaxis Nutritional Asmnt/Malnutr-PDOC - Dietary Evaluation Malnutrition Findings (Please click <Entered> for more info): Nutritional Asmnt/Malnutrition Start: 05/02/17 13: 57 Text: Status: Complete Freq: Document 05/02/17 13:57 [email or web address] (Rec: 05/02/17 14:03 [email or web address]) Nutritional Asmnt/Malnutrition Patient General Information Nutritional Screening Moderate Risk Diagnosis psychosis Pertinent Medical Hx/Surgical Hx COPD, schizophrenia, HTN, DM, anemia, glaucomma, cirrhosis, ascites Subjective Information Pt A&O x 2, suspicious of others, not appropriate for interview. PO intake has been 50-75% of pureed diet, did refuse 1 meal, but otherwise eating well. Current Diet Order/ Nutrition Support pureed Patient / S.O Not Indicated Pertinent Medications vitamin d, plavix, lasix, lactulose, synthroid Pertinent Labs 04/28 Na: 134, glucose: 120-134 - well controlled for no DM diet, BNP: 235 Nutritional Hx/Data Height 1.45 m Height (Calculated Centimeters) 144.8 Current Weight (lbs) 92.533 kg Weight (Calculated Kilograms) 92.5 Weight (Calculated Grams) 81956.8 [place] Body Weight 92 lbs % [place] Body Weight 222 Body Mass Index (BMI) 44.1 Weight Status Morbidly Obese GI Symptoms GI Symptoms None Last BM 05/02 Difficult in: Chewing Skin Integrity/Comment: intact, no edema noted Current %PO Fair (50-74%) Estimated Nutritional Goals BEE in Kcals: Adj wt of IBW Calories/Kcals/Kg 25-30 Kcals Calculated 4673-2094 Protein: Adj wt of IBW Protein g/k Protein Calculated 55 Fluid: ml 4179-5537 mL Nutritional Problem 1. Problem Problem overweight/obesity Etiology lifestyle Signs/Symptoms: BMI: 44 Malnutrition Alert Is there a minimum of two criteria No selected? Query Text:Check all the applicable criteria. A minimum of two criteria are recommended for diagnosis of either severe or non-severe malnutrition. Malnutrition Related to Morbid Obesity Malnutrition related to morbid obesity BMI> or equal to 40 Query Text:(Any 1 Criteria met) Malnutrition related to morbid obesity Yes Intervention/Recommendation Comments 1. Continue pureed diet as ordered. Do not recommend CCHO restriction as patient with only fair PO intake and POC glucose is controlled. Expected Outcomes/Goals Expected Outcomes/Goals PO intake >50%, labs: WNL monitor wt, labs, skin, PO intake
[2017-05-06] MEDS: Albuterol Nebulizer 2.5mg/3mL HHN PRN (20:20)
--- NOTE | 2017-05-07 00:17 | Progress Notes ---
DATE: The patient was seen and evaluated. The patient's chart reviewed. Covering for Dr. Conrad. She is a 61-year-old female brought in here for severe depression and agitation. She became aggressive towards staff members. Today on [id number] evaluation, she verbalizes a lot of anxiety, at times feeling very distraught by the anxiety. She also reports some vague suicidal ideation. MENTAL STATUS EXAMINATION: ____ distraught, overwhelmed, anxious. ASSESSMENT AND PLAN: Due to patient's anxiety, depressive symptoms, and also ____ SI. She is unable to formulate a safe plan, also is ____. We will continue with primary psychiatrist's treatment plan and goal which continue with BuSpar, Celexa 30 mg a day, olanzapine 5 mg p.o. b.i.d. to target the patient's melancholic state. JOB# [id number]
[2017-05-07] MEDS: Levothyroxine 0.1 Mg Tab PO SCH (06:48)
[2017-05-07] MEDS: Lactulose 10 Gm/15 mL 30mL UDC PO SCH ×3 (09:48→21:18)
[2017-05-07] MEDS: Multivitamin w/ Minerals Tab PO SCH (09:49)
[2017-05-07] MEDS: Polyvinyl Alcohol Ophth Soln 15 mL Bottle EACH EYE SCH ×3 (09:50→21:18)
--- NOTE | 2017-05-07 15:04 | Internal Medicine Prog Note ---
Internal Medicine Subjective - Subjective Patient seen and examined:: with staff, chart reviewed Patient is:: awake, verbal, interactive, in bed, agitated, confused Patient Complaints of:: unable to sleep Per staff patient has:: no adverse event, no episodes of fall, agitated, noncompliant, tolerating meds Internal Medicine Objective - Results Result Diagrams: 04/28/17 13:04 04/28/17 13:04 Recent Labs: Laboratory Last Values WBC 6.3 Th/cmm (4.8-10.8) 04/28/17 13:04 RBC 3.50 Mil/cmm (3.80-5.10) L 04/28/17 13:04 Hgb 10.1 gm/dL (12-16) L D 04/28/17 13:04 Hct 30.9 % (41.0-60) L D 04/28/17 13:04 MCV 88.4 fl (81-100) 04/28/17 13:04 MCH 28.8 pg (27.0-31.0) 04/28/17 13:04 MCHC Differential 32.5 pg (28.0-36.0) 04/28/17 13:04 RDW 17.4 % (11.5-20.0) 04/28/17 13:04 Plt Count 90 Th/cmm (150-400) L D 04/28/17 13:04 MPV 10.3 fl 04/28/17 13:04 Band Neutrophils % 1 % (0-10) 04/28/17 13:04 Neutrophils (Manual) 70 % (40-80) 04/28/17 13:04 Lymphocytes 15 % (20-50) L 04/28/17 13:04 Monocytes 7 % (2-10) 04/28/17 13:04 Eosinophils 7 % (0-5) H 04/28/17 13:04 Basophils 0 % (0-3) 04/28/17 13:04 Specimen Source Arterial 04/28/17 14:08 Sample Site Right Radial 04/28/17 14:08 pH 7.41 (7.35-7.45) 04/28/17 14:08 pCO2 44.0 mmHg (35.0-45.0) 04/28/17 14:08 pO2 57.0 mmHg (80.0-100.0) L 04/28/17 14:08 HCO3 26.9 mEq/L (20.0-26.0) H 04/28/17 14:08 Base Excess 2.8 mEq/L (-3.0-3.0) 04/28/17 14:08 O2 Saturation 90.0 % (92.0-100.0) L 04/28/17 14:08 Damian Test YES 04/28/17 14:08 Vent Rate NA 04/28/17 14:08 Inspired O2 21 04/28/17 14:08 Tidal Volume NA 04/28/17 14:08 PEEP NA 04/28/17 14:08 Pressure (ins/psv/peep) NA 04/28/17 14:08 Critical Value E.BARRIOS 04/28/17 14:08 Sodium 134 mEq/L (136-145) L 04/28/17 13:04 Potassium 3.9 mEq/L (3.5-5.1) 04/28/17 13:04 Chloride 101 mEq/L (98-107) 04/28/17 13:04 Carbon Dioxide 26.4 mEq/L (21.0-31.0) 04/28/17 13:04 Anion Gap 10.5 (7.0-16.0) 04/28/17 13:04 BUN 16 mg/dL (7-25) 04/28/17 13:04 Creatinine 0.8 mg/dL (0.6-1.2) 04/28/17 13:04 Est GFR ( Amer) > 60.0 ml/min (>90) 04/28/17 13:04 Est GFR (Non-Af Amer) > 60.0 ml/min 04/28/17 13:04 BUN/Creatinine Ratio 20.0 04/28/17 13:04 Glucose 120 mg/dL (70-105) H 04/28/17 13:04 POC Glucose 134 MG/DL (70 - 105) H 04/29/17 06:33 Calcium 9.0 mg/dL (8.6-10.3) 04/28/17 13:04 Total Bilirubin 1.8 mg/dL (0.3-1.0) H 04/28/17 13:04 AST 122 U/L (13-39) H 04/28/17 13:04 ALT 54 U/L (7-52) H 04/28/17 13:04 Alkaline Phosphatase 164 U/L (34-104) H 04/28/17 13:04 B-Natriuretic Peptide 235.0 pg/mL (5.0-100.0) H 04/28/17 13:04 Total Protein 6.8 gm/dL (6.0-8.3) 04/28/17 13:04 Albumin 2.5 gm/dL (3.7-5.3) L 04/28/17 13:04 Globulin 4.3 gm/dL 04/28/17 13:04 Albumin/Globulin Ratio 0.6 (1.0-1.8) L 04/28/17 13:04 TSH 0.31 uIU/ml (0.34-5.60) L 04/28/17 13:04 Urine Source RANDOM 04/28/17 14:32 Urine Color YELLOW 04/28/17 14:32 Urine Clarity HAZY (CLEAR) 04/28/17 14:32 Urine pH 6.0 (4.6 - 8.0) 04/28/17 14:32 Ur Specific [place] 1.020 (1.005-1.030) 04/28/17 14:32 Urine Protein NEGATIVE mg/dL (NEGATIVE) 04/28/17 14:32 Urine Glucose (UA) NEGATIVE mg/dL (NEGATIVE) 04/28/17 14:32 Urine Ketones NEGATIVE mg/dL (NEGATIVE) 04/28/17 14:32 Urine Blood NEGATIVE (NEGATIVE) 04/28/17 14:32 Urine Nitrate NEGATIVE (NEGATIVE) 04/28/17 14:32 Urine Bilirubin NEGATIVE (NEGATIVE) 04/28/17 14:32 Urine Urobilinogen 1.0 E.U./dL (0.2 - 1.0) 04/28/17 14:32 Ur Leukocyte Esterase TRACE (NEGATIVE) H 04/28/17 14:32 Urine RBC 0-2 /hpf (0-5) 04/28/17 14:32 Urine WBC 10-25 /hpf (0-5) H 04/28/17 14:32 Ur Epithelial Cells NONE SEEN /lpf (FEW) 04/28/17 14:32 Urine Bacteria FEW /hpf (NONE SEEN) 04/28/17 14:32 - Physical Exam Vitals and I&O: Vital Signs Temp 97.6 F 02/24/18 16:51 Pulse 59 05/07/17 09:51 Resp 20 05/06/17 16:51 BP 112/70 05/07/17 09:51 Pulse Ox 98 05/06/17 16:51 Intake & Output 05/06/17 05/07/17 05/07/17 18:59 06:59 18:59 Intake Total 1200 Balance 1200 Intake: Oral 1200 Other: # Voids 3 # Bowel Movements 1 Active Medications: Current Medications Acetaminophen (Tylenol) 650 mg PO Q6HR PRN PRN Reason: FEVER, NEWELL, PAIN Stop: 06/28/17 17:32 Last Admin: 05/07/17 10:02 Dose: 650 mg Albuterol Sulfate (Albuterol 2.5mg/3ml Neb Ud) 2.5 mg HHN Q4HRT PRN PRN Reason: Shortness of Breath Stop: 06/28/17 17:32 Last Admin: 05/06/17 20:20 Dose: 2.5 mg Amlodipine Besylate (Norvasc) 10 mg PO DAILY [facility] Stop: 06/29/17 08:59 Last Admin: 05/07/17 09:50 Dose: Not Given Artificial Tears (Artificial Tears Ophth Soln) 1 drop EACH EYE TID [facility] Stop: 06/28/17 20:59 Last Admin: 05/07/17 14:22 Dose: Not Given Buspirone HCl (Buspar) 5 mg PO BID MONSE PRN Reason: Protocol Stop: 06/29/17 08:59 Last Admin: 05/07/17 09:48 Dose: 5 mg Cholecalciferol (Vitamin D3) 5,000 iu PO DAILY [facility] Stop: 06/29/17 08:59 Last Admin: 05/07/17 09:49 Dose: 5,000 iu Citalopram Hydrobromide (Celexa) 30 mg PO DAILY [facility] Stop: 06/29/17 08:59 Last Admin: 05/07/17 09:48 Dose: 30 mg Clopidogrel Bisulfate (Plavix) 75 mg PO DAILY [facility] Stop: 06/29/17 08:59 Last Admin: 05/07/17 09:49 Dose: 75 mg Furosemide (Lasix) 40 mg PO DAILY [facility] Stop: 06/29/17 08:59 Last Admin: 05/07/17 09:51 Dose: Not Given Lactulose (Cephulac) 10 gm PO TID [facility] Stop: 06/28/17 20:59 Last Admin: 05/07/17 14:22 Dose: Not Given Latanoprost (Xalatan 0.005% Ophth Soln) 1 drop EACH EYE HS [facility] Stop: 06/28/17 20:59 Last Admin: 05/06/17 21:12 Dose: 1 drop Levothyroxine Sodium (Synthroid) 0.2 mg PO QDAC [facility] Stop: 06/29/17 07:29 Last Admin: 05/07/17 06:48 Dose: 0.2 mg Lorazepam (Ativan) 0.5 mg PO Q8HR PRN; Protocol PRN Reason: Anxiety Stop: 06/27/17 20:28 Last Admin: 05/07/17 09:48 Dose: 0.5 mg Losartan Potassium (Cozaar) 100 mg PO DAILY [facility] Stop: 06/29/17 08:59 Last Admin: 05/07/17 09:49 Dose: Not Given Metoprolol Succinate (Toprol Xl) 25 mg PO DAILY [facility] Stop: 06/29/17 08:59 Last Admin: 05/07/17 09:51 Dose: Not Given Olanzapine (Zyprexa) 5 mg PO HS MONSE PRN Reason: Protocol Stop: 06/30/17 20:59 Last Admin: 05/06/17 21:15 Dose: 5 mg Olanzapine (Zyprexa) 5 mg PO DAILY [facility] PRN Reason: Protocol Stop: 07/03/17 08:59 Last Admin: 05/07/17 09:49 Dose: 5 mg Pregabalin (Lyrica) 75 mg PO HS [facility] Stop: 06/28/17 20:59 Last Admin: 05/06/17 21:15 Dose: 75 mg Zolpidem Tartrate (Ambien) 5 mg PO HS PRN PRN Reason: Insomnia Stop: 06/28/17 21:43 Last Admin: 05/06/17 21:17 Dose: 5 mg General: demented HEENT: NC/AT, PERRLA Neck: Supple Lungs: CTAB Cardiovascular: RRR, Normal S1, Normal S2, without murmur Abdomen: soft, non-tender, non-distended, positive bowel sound Extremities: excoriation, atrophy Neurological: no change, disorganized, unsteady, unable to follow command - Procedures Procedures: Procedures Procedure Code Date OTHER GROUP THERAPY 94.44 01/13/13 Internal Medicine Assmt/Plan - Assessment Assessment: - Assessment Assessment: anemia glaucoma cirrhosis left eye blindness copd acute uti - Plan Plan: encourage fluids continue levaquin continue current orders - Plan Plan: encourage increase po intake dvt abd gastritis prophylaxis Nutritional Asmnt/Malnutr-PDOC - Dietary Evaluation Malnutrition Findings (Please click <Entered> for more info): Nutritional Asmnt/Malnutrition Start: 05/02/17 13: 57 Text: Status: Complete Freq: Document 05/02/17 13:57 [email or web address] (Rec: 05/02/17 14:03 [email or web address]) Nutritional Asmnt/Malnutrition Patient General Information Nutritional Screening Moderate Risk Diagnosis psychosis Pertinent Medical Hx/Surgical Hx COPD, schizophrenia, HTN, DM, anemia, glaucomma, cirrhosis, ascites Subjective Information Pt A&O x 2, suspicious of others, not appropriate for interview. PO intake has been 50-75% of pureed diet, did refuse 1 meal, but otherwise eating well. Current Diet Order/ Nutrition Support pureed Patient / S.O Not Indicated Pertinent Medications vitamin d, plavix, lasix, lactulose, synthroid Pertinent Labs 04/28 Na: 134, glucose: 120-134 - well controlled for no DM diet, BNP: 235 Nutritional Hx/Data Height 1.45 m Height (Calculated Centimeters) 144.8 Current Weight (lbs) 92.533 kg Weight (Calculated Kilograms) 92.5 Weight (Calculated Grams) 48384.8 [place] Body Weight 92 lbs % [place] Body Weight 222 Body Mass Index (BMI) 44.1 Weight Status Morbidly Obese GI Symptoms GI Symptoms None Last BM 05/02 Difficult in: Chewing Skin Integrity/Comment: intact, no edema noted Current %PO Fair (50-74%) Estimated Nutritional Goals BEE in Kcals: Adj wt of IBW Calories/Kcals/Kg 25-30 Kcals Calculated 5369-3119 Protein: Adj wt of IBW Protein g/k Protein Calculated 55 Fluid: ml 5751-0300 mL Nutritional Problem 1. Problem Problem overweight/obesity Etiology lifestyle Signs/Symptoms: BMI: 44 Malnutrition Alert Is there a minimum of two criteria No selected? Query Text:Check all the applicable criteria. A minimum of two criteria are recommended for diagnosis of either severe or non-severe malnutrition. Malnutrition Related to Morbid Obesity Malnutrition related to morbid obesity BMI> or equal to 40 Query Text:(Any 1 Criteria met) Malnutrition related to morbid obesity Yes Intervention/Recommendation Comments 1. Continue pureed diet as ordered. Do not recommend CCHO restriction as patient with only fair PO intake and POC glucose is controlled. Expected Outcomes/Goals Expected Outcomes/Goals PO intake >50%, labs: WNL monitor wt, labs, skin, PO intake
[2017-05-07] MEDS: Albuterol Nebulizer 2.5mg/3mL HHN PRN ×2 (16:52→19:59)
--- NOTE | 2017-05-07 19:39 | Progress Notes ---
DATE: The patient was seen and evaluated. The patient's chart reviewed. This is Dr. Sanchez covering for Dr. Conrad. Today on [id number] evaluation, the patient observed to be very anxious. She has been requesting the use of Haldol. When discussing with her that she is currently on olanzapine, so much safer medication in regards to her current condition. She continues to persevere only on Haldol. MENTAL STATUS EXAMINATION: Distraught, overwhelmed, anxious, ruminative and disheveled. ASSESSMENT AND PLAN: The patient is a 61-year-old female with a history of schizoaffective depressive type. Due to the patient's severe anxiety and depressive symptoms, she continues to elaborate a safe plan. We will continue with primary psychiatrist treatment plan, which I agree with olanzapine at 5 mg p.o. b.i.d. to target the patient's residual melancholic state and disorganized thought process. [facility]# [id number]
[2017-05-07 19:47] LABS: ALB/GLOB RATIO 0.7 (1.0-1.8); ALBUMIN 2.5 gm/dL (3.7-5.3); ALKALINE PHOSPHATASE 135 U/L (34-104); ANION GAP 7.6 (7.0-16.0); BILIRUBIN,TOTAL 1.6 mg/dL (0.3-1.0); BUN - UREA NITROGEN 19 mg/dL (7-25); CALCIUM SERUM 8.7 mg/dL (8.6-10.3); CARBON DIOXIDE 27.7 mEq/L (21.0-31.0); CHLORIDE 104 mEq/L (98-107); CREATININE - SERUM 0.9 mg/dL (0.6-1.2); GFR AFRICAN-AMERICAN > 60.0 ml/min (>90); GFR NON AFRICAN-AMERICAN > 60.0 ml/min; GLUCOSE 127 mg/dL (70-105); POTASSIUM SERUM 4.3 mEq/L (3.5-5.1); SGOT 103 U/L (13-39); SGPT/ALT 47 U/L (7-52); SODIUM SERUM 135 mEq/L (136-145); TOTAL PROTEIN,SERUM 6.1 gm/dL (6.0-8.3)
[2017-05-08] MEDS: Albuterol Nebulizer 2.5mg/3mL HHN PRN ×2 (01:03→23:57)
[2017-05-08] MEDS: Levothyroxine 0.1 Mg Tab PO SCH (06:47)
[2017-05-08] MEDS: Lactulose 10 Gm/15 mL 30mL UDC PO SCH ×3 (08:41→21:16)
[2017-05-08] MEDS: Multivitamin w/ Minerals Tab PO SCH (08:49)
[2017-05-08] MEDS: Polyvinyl Alcohol Ophth Soln 15 mL Bottle EACH EYE SCH ×3 (08:51→21:16)
--- NOTE | 2017-05-08 12:43 | Internal Medicine Prog Note ---
Internal Medicine Subjective - Subjective Service Date: 05/08/17 Patient is:: awake, verbal, interactive, in bed, agitated, confused Patient Complaints of:: unable to sleep Per staff patient has:: no adverse event, no episodes of fall, agitated, noncompliant, tolerating meds Internal Medicine Objective - Results Result Diagrams: 04/28/17 13:04 05/07/17 19:24 Recent Labs: Laboratory Last Values WBC 6.3 Th/cmm (4.8-10.8) 04/28/17 13:04 RBC 3.50 Mil/cmm (3.80-5.10) L 04/28/17 13:04 Hgb 10.1 gm/dL (12-16) L D 04/28/17 13:04 Hct 30.9 % (41.0-60) L D 04/28/17 13:04 MCV 88.4 fl (81-100) 04/28/17 13:04 MCH 28.8 pg (27.0-31.0) 04/28/17 13:04 MCHC Differential 32.5 pg (28.0-36.0) 04/28/17 13:04 RDW 17.4 % (11.5-20.0) 04/28/17 13:04 Plt Count 90 Th/cmm (150-400) L D 04/28/17 13:04 MPV 10.3 fl 04/28/17 13:04 Band Neutrophils % 1 % (0-10) 04/28/17 13:04 Neutrophils (Manual) 70 % (40-80) 04/28/17 13:04 Lymphocytes 15 % (20-50) L 04/28/17 13:04 Monocytes 7 % (2-10) 04/28/17 13:04 Eosinophils 7 % (0-5) H 04/28/17 13:04 Basophils 0 % (0-3) 04/28/17 13:04 Specimen Source Arterial 04/28/17 14:08 Sample Site Right Radial 04/28/17 14:08 pH 7.41 (7.35-7.45) 04/28/17 14:08 pCO2 44.0 mmHg (35.0-45.0) 04/28/17 14:08 pO2 57.0 mmHg (80.0-100.0) L 04/28/17 14:08 HCO3 26.9 mEq/L (20.0-26.0) H 04/28/17 14:08 Base Excess 2.8 mEq/L (-3.0-3.0) 04/28/17 14:08 O2 Saturation 90.0 % (92.0-100.0) L 04/28/17 14:08 Damian Test YES 04/28/17 14:08 Vent Rate NA 04/28/17 14:08 Inspired O2 21 04/28/17 14:08 Tidal Volume NA 04/28/17 14:08 PEEP NA 04/28/17 14:08 Pressure (ins/psv/peep) NA 04/28/17 14:08 Critical Value E.BARRIOS 04/28/17 14:08 Sodium 135 mEq/L (136-145) L 05/07/17 19:24 Potassium 4.3 mEq/L (3.5-5.1) 05/07/17 19:24 Chloride 104 mEq/L (98-107) 05/07/17 19:24 Carbon Dioxide 27.7 mEq/L (21.0-31.0) 05/07/17 19:24 Anion Gap 7.6 (7.0-16.0) 05/07/17 19:24 BUN 19 mg/dL (7-25) 05/07/17 19:24 Creatinine 0.9 mg/dL (0.6-1.2) 05/07/17 19:24 Est GFR ( Amer) > 60.0 ml/min (>90) 05/07/17 19:24 Est GFR (Non-Af Amer) > 60.0 ml/min 05/07/17 19:24 BUN/Creatinine Ratio 21.1 05/07/17 19:24 Glucose 127 mg/dL (70-105) H 05/07/17 19:24 POC Glucose 134 MG/DL (70 - 105) H 04/29/17 06:33 Calcium 8.7 mg/dL (8.6-10.3) 05/07/17 19:24 Total Bilirubin 1.6 mg/dL (0.3-1.0) H 05/07/17 19:24 AST 103 U/L (13-39) H 05/07/17 19:24 ALT 47 U/L (7-52) 05/07/17 19:24 Alkaline Phosphatase 135 U/L (34-104) H 05/07/17 19:24 B-Natriuretic Peptide 235.0 pg/mL (5.0-100.0) H 04/28/17 13:04 Total Protein 6.1 gm/dL (6.0-8.3) 05/07/17 19:24 Albumin 2.5 gm/dL (3.7-5.3) L 05/07/17 19:24 Globulin 3.6 gm/dL 05/07/17 19:24 Albumin/Globulin Ratio 0.7 (1.0-1.8) L 05/07/17 19:24 TSH 0.31 uIU/ml (0.34-5.60) L 04/28/17 13:04 Urine Source RANDOM 04/28/17 14:32 Urine Color YELLOW 04/28/17 14:32 Urine Clarity HAZY (CLEAR) 04/28/17 14:32 Urine pH 6.0 (4.6 - 8.0) 04/28/17 14:32 Ur Specific [place] 1.020 (1.005-1.030) 04/28/17 14:32 Urine Protein NEGATIVE mg/dL (NEGATIVE) 04/28/17 14:32 Urine Glucose (UA) NEGATIVE mg/dL (NEGATIVE) 04/28/17 14:32 Urine Ketones NEGATIVE mg/dL (NEGATIVE) 04/28/17 14:32 Urine Blood NEGATIVE (NEGATIVE) 04/28/17 14:32 Urine Nitrate NEGATIVE (NEGATIVE) 04/28/17 14:32 Urine Bilirubin NEGATIVE (NEGATIVE) 04/28/17 14:32 Urine Urobilinogen 1.0 E.U./dL (0.2 - 1.0) 04/28/17 14:32 Ur Leukocyte Esterase TRACE (NEGATIVE) H 04/28/17 14:32 Urine RBC 0-2 /hpf (0-5) 04/28/17 14:32 Urine WBC 10-25 /hpf (0-5) H 04/28/17 14:32 Ur Epithelial Cells NONE SEEN /lpf (FEW) 04/28/17 14:32 Urine Bacteria FEW /hpf (NONE SEEN) 04/28/17 14:32 - Physical Exam Vitals and I&O: Vital Signs Temp 97.6 F 05/08/17 06:38 Pulse 72 05/08/17 12:33 Resp 20 05/08/17 12:33 BP 165/72 05/08/17 08:50 Pulse Ox 97 05/08/17 12:33 Intake & Output 05/07/17 05/08/17 05/08/17 18:59 06:59 18:59 Intake Total 1200 480 Balance 1200 480 Intake: Oral 1200 480 Other: # Voids 3 1 # Bowel Movements 1 Stool Characteristics Soft Soft Brown Brown Active Medications: Current Medications Acetaminophen (Tylenol) 650 mg PO Q6HR PRN PRN Reason: FEVER, NEWELL, PAIN Stop: 06/28/17 17:32 Last Admin: 05/07/17 10:02 Dose: 650 mg Albuterol Sulfate (Albuterol 2.5mg/3ml Neb Ud) 2.5 mg HHN Q4HRT PRN PRN Reason: Shortness of Breath Stop: 06/28/17 17:32 Last Admin: 05/08/17 01:03 Dose: 2.5 mg Amlodipine Besylate (Norvasc) 10 mg PO DAILY [facility] Stop: 06/29/17 08:59 Last Admin: 05/08/17 08:48 Dose: 10 mg Artificial Tears (Artificial Tears Ophth Soln) 1 drop EACH EYE TID MONSE Stop: 06/28/17 20:59 Last Admin: 05/08/17 08:51 Dose: 1 drop Buspirone HCl (Buspar) 5 mg PO BID MONSE PRN Reason: Protocol Stop: 06/29/17 08:59 Last Admin: 05/08/17 08:47 Dose: 5 mg Cholecalciferol (Vitamin D3) 5,000 iu PO DAILY MONSE Stop: 06/29/17 08:59 Last Admin: 05/08/17 08:42 Dose: 5,000 iu Citalopram Hydrobromide (Celexa) 30 mg PO DAILY MONSE Stop: 06/29/17 08:59 Last Admin: 05/08/17 08:43 Dose: 30 mg Clopidogrel Bisulfate (Plavix) 75 mg PO DAILY MONSE Stop: 06/29/17 08:59 Last Admin: 05/08/17 08:45 Dose: 75 mg Furosemide (Lasix) 40 mg PO DAILY MONSE Stop: 06/29/17 08:59 Last Admin: 05/08/17 08:50 Dose: 40 mg Lactulose (Cephulac) 10 gm PO TID MONSE Stop: 06/28/17 20:59 Last Admin: 05/08/17 08:41 Dose: 10 gm Latanoprost (Xalatan 0.005% Oph Soln) 1 drop EACH EYE HS MONSE Stop: 06/28/17 20:59 Last Admin: 05/07/17 21:18 Dose: 1 drop Levothyroxine Sodium (Synthroid) 0.2 mg PO QDAC OMNSE Stop: 06/29/17 07:29 Last Admin: 05/08/17 06:47 Dose: 0.2 mg Lorazepam (Ativan) 0.5 mg PO Q8HR PRN; Protocol PRN Reason: Anxiety Stop: 06/27/17 20:28 Last Admin: 05/08/17 00:09 Dose: 0.5 mg Losartan Potassium (Cozaar) 100 mg PO DAILY MONSE Stop: 06/29/17 08:59 Last Admin: 05/08/17 08:49 Dose: 100 mg Metoprolol Succinate (Toprol Xl) 25 mg PO DAILY MONSE Stop: 06/29/17 08:59 Last Admin: 05/08/17 08:50 Dose: 25 mg Olanzapine (Zyprexa) 5 mg PO HS MONSE PRN Reason: Protocol Stop: 06/30/17 20:59 Last Admin: 05/07/17 21:18 Dose: 5 mg Olanzapine (Zyprexa) 5 mg PO DAILY MONSE PRN Reason: Protocol Stop: 07/03/17 08:59 Last Admin: 05/08/17 08:47 Dose: 5 mg Pregabalin (Lyrica) 75 mg PO HS MONSE Stop: 06/28/17 20:59 Last Admin: 05/07/17 21:18 Dose: 75 mg Zolpidem Tartrate (Ambien) 5 mg PO HS PRN PRN Reason: Insomnia Stop: 06/28/17 21:43 Last Admin: 05/08/17 02:57 Dose: 5 mg General: demented HEENT: NC/AT, PERRLA Neck: Supple Lungs: CTAB Cardiovascular: RRR, Normal S1, Normal S2, without murmur Abdomen: soft, non-tender, non-distended, positive bowel sound Extremities: excoriation, atrophy Neurological: no change, disorganized, unsteady, unable to follow command - Procedures Procedures: Procedures Procedure Code Date OTHER GROUP THERAPY 94.44 01/13/13 Internal Medicine Assmt/Plan - Assessment Assessment: anemia glaucoma cirrhosis left eye blindness copd acute uti - Plan Plan: encourage fluids continue levaquin continue current orders Nutritional Asmnt/Malnutr-PDOC - Dietary Evaluation Malnutrition Findings (Please click <Entered> for more info): Nutritional Asmnt/Malnutrition Start: 05/02/17 13: 57 Text: Status: Complete Freq: Document 05/02/17 13:57 [email or web address] (Rec: 05/02/17 14:03 [email or web address]) Nutritional Asmnt/Malnutrition Patient General Information Nutritional Screening Moderate Risk Diagnosis psychosis Pertinent Medical Hx/Surgical Hx COPD, schizophrenia, HTN, DM, anemia, glaucomma, cirrhosis, ascites Subjective Information Pt A&O x 2, suspicious of others, not appropriate for interview. PO intake has been 50-75% of pureed diet, did refuse 1 meal, but otherwise eating well. Current Diet Order/ Nutrition Support pureed Patient / S.O Not Indicated Pertinent Medications vitamin d, plavix, lasix, lactulose, synthroid Pertinent Labs 04/28 Na: 134, glucose: 120-134 - well controlled for no DM diet, BNP: 235 Nutritional Hx/Data Height 4 ft 9 in Height (Calculated Centimeters) 144.8 Current Weight (lbs) 204 lb Weight (Calculated Kilograms) 92.5 Weight (Calculated Grams) 70476.8 [place] Body Weight 92 lbs % [place] Body Weight 222 Body Mass Index (BMI) 44.1 Weight Status Morbidly Obese GI Symptoms GI Symptoms None Last BM 05/02 Difficult in: Chewing Skin Integrity/Comment: intact, no edema noted Current %PO Fair (50-74%) Estimated Nutritional Goals BEE in Kcals: Adj wt of IBW Calories/Kcals/Kg 25-30 Kcals Calculated 8887-4252 Protein: Adj wt of IBW Protein g/k Protein Calculated 55 Fluid: ml 8709-3725 mL Nutritional Problem 1. Problem Problem overweight/obesity Etiology lifestyle Signs/Symptoms: BMI: 44 Malnutrition Alert Is there a minimum of two criteria No selected? Query Text:Check all the applicable criteria. A minimum of two criteria are recommended for diagnosis of either severe or non-severe malnutrition. Malnutrition Related to Morbid Obesity Malnutrition related to morbid obesity BMI> or equal to 40 Query Text:(Any 1 Criteria met) Malnutrition related to morbid obesity Yes Intervention/Recommendation Comments 1. Continue pureed diet as ordered. Do not recommend CCHO restriction as patient with only fair PO intake and POC glucose is controlled. Expected Outcomes/Goals Expected Outcomes/Goals PO intake >50%, labs: WNL monitor wt, labs, skin, PO intake
--- NOTE | 2017-05-08 17:59 | Progress Notes ---
DATE: 05/08/2017 SUBJECTIVE: The patient remains somewhat anxious, still complaining of some panic, noting any thoughts of self-harm or dissipating, but she remains ruminative and very depressed. Sleeping on exam, but arousable. She remains pretty withdrawn in her room. ASSESSMENT: The patient remains symptomatic, ongoing symptoms where she is distraught, depressed, overwhelmed, but on a positive note, she is noting that she is not suicidal and these thoughts of suicide are decreasing. It seems that the addition of Zyprexa in the daytime is helping her. We will monitor and follow up. Continue to monitor for any behavioral disturbances or side effects. [facility]# [id number]
[2017-05-09] MEDS: Levothyroxine 0.1 Mg Tab PO SCH (06:32)
[2017-05-09] MEDS: Albuterol Nebulizer 2.5mg/3mL HHN PRN ×3 (06:34→22:47)
[2017-05-09] MEDS: Lactulose 10 Gm/15 mL 30mL UDC PO SCH ×3 (09:12→20:39)
[2017-05-09] MEDS: Multivitamin w/ Minerals Tab PO SCH (09:13)
[2017-05-09] MEDS: Polyvinyl Alcohol Ophth Soln 15 mL Bottle EACH EYE SCH ×3 (09:37→21:31)
--- NOTE | 2017-05-09 15:09 | Internal Medicine Prog Note ---
Internal Medicine Subjective - Subjective Service Date: 05/09/17 Patient is:: awake, verbal, interactive, in bed, agitated, confused Patient Complaints of:: unable to sleep Per staff patient has:: no adverse event, no episodes of fall, agitated, noncompliant, tolerating meds Internal Medicine Objective - Results Result Diagrams: 04/28/17 13:04 05/07/17 19:24 Recent Labs: Laboratory Last Values WBC 6.3 Th/cmm (4.8-10.8) 04/28/17 13:04 RBC 3.50 Mil/cmm (3.80-5.10) L 04/28/17 13:04 Hgb 10.1 gm/dL (12-16) L D 04/28/17 13:04 Hct 30.9 % (41.0-60) L D 04/28/17 13:04 MCV 88.4 fl (81-100) 04/28/17 13:04 MCH 28.8 pg (27.0-31.0) 04/28/17 13:04 MCHC Differential 32.5 pg (28.0-36.0) 04/28/17 13:04 RDW 17.4 % (11.5-20.0) 04/28/17 13:04 Plt Count 90 Th/cmm (150-400) L D 04/28/17 13:04 MPV 10.3 fl 04/28/17 13:04 Band Neutrophils % 1 % (0-10) 04/28/17 13:04 Neutrophils (Manual) 70 % (40-80) 04/28/17 13:04 Lymphocytes 15 % (20-50) L 04/28/17 13:04 Monocytes 7 % (2-10) 04/28/17 13:04 Eosinophils 7 % (0-5) H 04/28/17 13:04 Basophils 0 % (0-3) 04/28/17 13:04 Specimen Source Arterial 04/28/17 14:08 Sample Site Right Radial 04/28/17 14:08 pH 7.41 (7.35-7.45) 04/28/17 14:08 pCO2 44.0 mmHg (35.0-45.0) 04/28/17 14:08 pO2 57.0 mmHg (80.0-100.0) L 04/28/17 14:08 HCO3 26.9 mEq/L (20.0-26.0) H 04/28/17 14:08 Base Excess 2.8 mEq/L (-3.0-3.0) 04/28/17 14:08 O2 Saturation 90.0 % (92.0-100.0) L 04/28/17 14:08 Damian Test YES 04/28/17 14:08 Vent Rate NA 04/28/17 14:08 Inspired O2 21 04/28/17 14:08 Tidal Volume NA 04/28/17 14:08 PEEP NA 04/28/17 14:08 Pressure (ins/psv/peep) NA 04/28/17 14:08 Critical Value E.BARRIOS 04/28/17 14:08 Sodium 135 mEq/L (136-145) L 05/07/17 19:24 Potassium 4.3 mEq/L (3.5-5.1) 05/07/17 19:24 Chloride 104 mEq/L (98-107) 05/07/17 19:24 Carbon Dioxide 27.7 mEq/L (21.0-31.0) 05/07/17 19:24 Anion Gap 7.6 (7.0-16.0) 05/07/17 19:24 BUN 19 mg/dL (7-25) 05/07/17 19:24 Creatinine 0.9 mg/dL (0.6-1.2) 05/07/17 19:24 Est GFR ( Amer) > 60.0 ml/min (>90) 05/07/17 19:24 Est GFR (Non-Af Amer) > 60.0 ml/min 05/07/17 19:24 BUN/Creatinine Ratio 21.1 05/07/17 19:24 Glucose 127 mg/dL (70-105) H 05/07/17 19:24 POC Glucose 134 MG/DL (70 - 105) H 04/29/17 06:33 Calcium 8.7 mg/dL (8.6-10.3) 05/07/17 19:24 Total Bilirubin 1.6 mg/dL (0.3-1.0) H 05/07/17 19:24 AST 103 U/L (13-39) H 05/07/17 19:24 ALT 47 U/L (7-52) 05/07/17 19:24 Alkaline Phosphatase 135 U/L (34-104) H 05/07/17 19:24 B-Natriuretic Peptide 235.0 pg/mL (5.0-100.0) H 04/28/17 13:04 Total Protein 6.1 gm/dL (6.0-8.3) 05/07/17 19:24 Albumin 2.5 gm/dL (3.7-5.3) L 05/07/17 19:24 Globulin 3.6 gm/dL 05/07/17 19:24 Albumin/Globulin Ratio 0.7 (1.0-1.8) L 05/07/17 19:24 TSH 0.31 uIU/ml (0.34-5.60) L 04/28/17 13:04 Urine Source RANDOM 04/28/17 14:32 Urine Color YELLOW 04/28/17 14:32 Urine Clarity HAZY (CLEAR) 04/28/17 14:32 Urine pH 6.0 (4.6 - 8.0) 04/28/17 14:32 Ur Specific [place] 1.020 (1.005-1.030) 04/28/17 14:32 Urine Protein NEGATIVE mg/dL (NEGATIVE) 04/28/17 14:32 Urine Glucose (UA) NEGATIVE mg/dL (NEGATIVE) 04/28/17 14:32 Urine Ketones NEGATIVE mg/dL (NEGATIVE) 04/28/17 14:32 Urine Blood NEGATIVE (NEGATIVE) 04/28/17 14:32 Urine Nitrate NEGATIVE (NEGATIVE) 04/28/17 14:32 Urine Bilirubin NEGATIVE (NEGATIVE) 04/28/17 14:32 Urine Urobilinogen 1.0 E.U./dL (0.2 - 1.0) 04/28/17 14:32 Ur Leukocyte Esterase TRACE (NEGATIVE) H 04/28/17 14:32 Urine RBC 0-2 /hpf (0-5) 04/28/17 14:32 Urine WBC 10-25 /hpf (0-5) H 04/28/17 14:32 Ur Epithelial Cells NONE SEEN /lpf (FEW) 04/28/17 14:32 Urine Bacteria FEW /hpf (NONE SEEN) 04/28/17 14:32 - Physical Exam Vitals and I&O: Vital Signs Temp 98 F 05/09/17 06:43 Pulse 65 05/09/17 09:11 Resp 18 05/09/17 08:00 BP 153/62 05/09/17 09:13 Pulse Ox 94 05/09/17 06:43 Intake & Output 05/08/17 05/09/17 05/09/17 18:59 06:59 18:59 Intake Total 900 240 Balance 900 240 Weight (lbs) 204 lb Intake: Oral 900 240 Other: # Voids 4 3 # Bowel Movements 1 1 Stool Characteristics Soft Soft Brown Brown Active Medications: Current Medications Acetaminophen (Tylenol) 650 mg PO Q6HR PRN PRN Reason: FEVER, NEWELL, PAIN Stop: 06/28/17 17:32 Last Admin: 05/07/17 10:02 Dose: 650 mg Albuterol Sulfate (Albuterol 2.5mg/3ml Neb Ud) 2.5 mg HHN Q4HRT PRN PRN Reason: Shortness of Breath Stop: 06/28/17 17:32 Last Admin: 05/09/17 06:34 Dose: 2.5 mg Amlodipine Besylate (Norvasc) 10 mg PO DAILY [facility] Stop: 06/29/17 08:59 Last Admin: 05/09/17 09:08 Dose: 10 mg Artificial Tears (Artificial Tears Ophth Soln) 1 drop EACH EYE TID MONSE Stop: 06/28/17 20:59 Last Admin: 05/09/17 14:31 Dose: 1 drop Buspirone HCl (Buspar) 5 mg PO BID MONSE PRN Reason: Protocol Stop: 06/29/17 08:59 Last Admin: 05/09/17 09:10 Dose: 5 mg Cholecalciferol (Vitamin D3) 5,000 iu PO DAILY MON[facility] Stop: 06/29/17 08:59 Last Admin: 05/09/17 09:06 Dose: 5,000 iu Citalopram Hydrobromide (Celexa) 30 mg PO DAILY [facility] Stop: 06/29/17 08:59 Last Admin: 05/09/17 09:07 Dose: 30 mg Clopidogrel Bisulfate (Plavix) 75 mg PO DAILY [facility] Stop: 06/29/17 08:59 Last Admin: 05/09/17 09:07 Dose: 75 mg Furosemide (Lasix) 40 mg PO DAILY MON[facility] Stop: 06/29/17 08:59 Last Admin: 05/09/17 09:13 Dose: 40 mg Lactulose (Cephulac) 10 gm PO TID MONSE Stop: 06/28/17 20:59 Last Admin: 05/09/17 14:31 Dose: Not Given Latanoprost (Xalatan 0.005% Ophth Soln) 1 drop EACH EYE HS MONSE Stop: 06/28/17 20:59 Last Admin: 05/08/17 21:16 Dose: 1 drop Levothyroxine Sodium (Synthroid) 0.2 mg PO QDAC MONSE Stop: 06/29/17 07:29 Last Admin: 05/09/17 06:32 Dose: 0.2 mg Lorazepam (Ativan) 0.5 mg PO Q8HR PRN; Protocol PRN Reason: Anxiety Stop: 06/27/17 20:28 Last Admin: 05/08/17 21:15 Dose: 0.5 mg Losartan Potassium (Cozaar) 100 mg PO DAILY [facility] Stop: 06/29/17 08:59 Last Admin: 05/09/17 09:10 Dose: 100 mg Metoprolol Succinate (Toprol Xl) 25 mg PO DAILY MON[facility] Stop: 06/29/17 08:59 Last Admin: 05/09/17 09:11 Dose: 25 mg Olanzapine (Zyprexa) 5 mg PO HS MONSE PRN Reason: Protocol Stop: 06/30/17 20:59 Last Admin: 05/08/17 21:16 Dose: 5 mg Olanzapine (Zyprexa) 5 mg PO DAILY MONSE PRN Reason: Protocol Stop: 07/03/17 08:59 Last Admin: 05/09/17 09:08 Dose: 5 mg Pregabalin (Lyrica) 75 mg PO HS MONSE Stop: 06/28/17 20:59 Last Admin: 05/08/17 21:15 Dose: 75 mg Zolpidem Tartrate (Ambien) 5 mg PO HS PRN PRN Reason: Insomnia Stop: 06/28/17 21:43 Last Admin: 05/09/17 00:39 Dose: 5 mg General: demented HEENT: NC/AT, PERRLA Neck: Supple Lungs: CTAB Cardiovascular: RRR, Normal S1, Normal S2, without murmur Abdomen: soft, non-tender, non-distended, positive bowel sound Extremities: excoriation, atrophy Neurological: no change, disorganized, unsteady, unable to follow command - Procedures Procedures: Procedures Procedure Code Date OTHER GROUP THERAPY 94.44 01/13/13 Internal Medicine Assmt/Plan - Assessment Assessment: anemia glaucoma cirrhosis left eye blindness copd acute uti - Plan Plan: encourage fluids continue levaquin continue current orders Nutritional Asmnt/Malnutr-PDOC - Dietary Evaluation Malnutrition Findings (Please click <Entered> for more info): Nutritional Asmnt/Malnutrition Start: 05/02/17 13: 57 Text: Status: Complete Freq: Document 05/02/17 13:57 [email or web address] (Rec: 05/02/17 14:03 [email or web address]) Nutritional Asmnt/Malnutrition Patient General Information Nutritional Screening Moderate Risk Diagnosis psychosis Pertinent Medical Hx/Surgical Hx COPD, schizophrenia, HTN, DM, anemia, glaucomma, cirrhosis, ascites Subjective Information Pt A&O x 2, suspicious of others, not appropriate for interview. PO intake has been 50-75% of pureed diet, did refuse 1 meal, but otherwise eating well. Current Diet Order/ Nutrition Support pureed Patient / S.O Not Indicated Pertinent Medications vitamin d, plavix, lasix, lactulose, synthroid Pertinent Labs 04/28 Na: 134, glucose: 120-134 - well controlled for no DM diet, BNP: 235 Nutritional Hx/Data Height 4 ft 9 in Height (Calculated Centimeters) 144.8 Current Weight (lbs) 204 lb Weight (Calculated Kilograms) 92.5 Weight (Calculated Grams) 69642.8 [place] Body Weight 92 lbs % [place] Body Weight 222 Body Mass Index (BMI) 44.1 Weight Status Morbidly Obese GI Symptoms GI Symptoms None Last BM 05/02 Difficult in: Chewing Skin Integrity/Comment: intact, no edema noted Current %PO Fair (50-74%) Estimated Nutritional Goals BEE in Kcals: Adj wt of IBW Calories/Kcals/Kg 25-30 Kcals Calculated 7296-0227 Protein: Adj wt of IBW Protein g/k Protein Calculated 55 Fluid: ml 4891-1840 mL Nutritional Problem 1. Problem Problem overweight/obesity Etiology lifestyle Signs/Symptoms: BMI: 44 Malnutrition Alert Is there a minimum of two criteria No selected? Query Text:Check all the applicable criteria. A minimum of two criteria are recommended for diagnosis of either severe or non-severe malnutrition. Malnutrition Related to Morbid Obesity Malnutrition related to morbid obesity BMI> or equal to 40 Query Text:(Any 1 Criteria met) Malnutrition related to morbid obesity Yes Intervention/Recommendation Comments 1. Continue pureed diet as ordered. Do not recommend CCHO restriction as patient with only fair PO intake and POC glucose is controlled. Expected Outcomes/Goals Expected Outcomes/Goals PO intake >50%, labs: WNL monitor wt, labs, skin, PO intake
--- NOTE | 2017-05-09 18:51 | Progress Notes ---
DATE: 05/09/2017 The patient remains somewhat anxious, still with some panic, but she is a lot calmer on exam, remains occlusive, remains isolative, remains withdrawn, noting any thoughts of self-harm dissipating and decreasing. She has been taking her medication, seems daytime dose of Seroquel is helping. MEDICATIONS: Noted. ASSESSMENT: The patient remains symptomatic, anxious, ongoing SI, but improvement noted. PLAN: I am trying to confirm a safe discharge plan. Given her ongoing symptoms, she is not safe for discharge. [facility]# [id number]
[2017-05-10] MEDS: Albuterol Nebulizer 2.5mg/3mL HHN PRN ×3 (03:41→22:50)
[2017-05-10] MEDS: Levothyroxine 0.1 Mg Tab PO SCH (06:36)
[2017-05-10] MEDS: Lactulose 10 Gm/15 mL 30mL UDC PO SCH ×3 (09:32→21:51)
[2017-05-10] MEDS: Multivitamin w/ Minerals Tab PO SCH (09:35)
[2017-05-10] MEDS: Polyvinyl Alcohol Ophth Soln 15 mL Bottle EACH EYE SCH ×3 (09:53→21:51)
--- NOTE | 2017-05-10 13:56 | Internal Medicine Prog Note ---
Internal Medicine Subjective - Subjective Service Date: 05/10/17 Patient is:: awake, verbal, interactive, in bed, agitated, confused Patient Complaints of:: unable to sleep Per staff patient has:: no adverse event, no episodes of fall, agitated, noncompliant, tolerating meds Internal Medicine Objective - Results Result Diagrams: 04/28/17 13:04 05/07/17 19:24 Recent Labs: Laboratory Last Values WBC 6.3 Th/cmm (4.8-10.8) 04/28/17 13:04 RBC 3.50 Mil/cmm (3.80-5.10) L 04/28/17 13:04 Hgb 10.1 gm/dL (12-16) L D 04/28/17 13:04 Hct 30.9 % (41.0-60) L D 04/28/17 13:04 MCV 88.4 fl (81-100) 04/28/17 13:04 MCH 28.8 pg (27.0-31.0) 04/28/17 13:04 MCHC Differential 32.5 pg (28.0-36.0) 04/28/17 13:04 RDW 17.4 % (11.5-20.0) 04/28/17 13:04 Plt Count 90 Th/cmm (150-400) L D 04/28/17 13:04 MPV 10.3 fl 04/28/17 13:04 Band Neutrophils % 1 % (0-10) 04/28/17 13:04 Neutrophils (Manual) 70 % (40-80) 04/28/17 13:04 Lymphocytes 15 % (20-50) L 04/28/17 13:04 Monocytes 7 % (2-10) 04/28/17 13:04 Eosinophils 7 % (0-5) H 04/28/17 13:04 Basophils 0 % (0-3) 04/28/17 13:04 Specimen Source Arterial 04/28/17 14:08 Sample Site Right Radial 04/28/17 14:08 pH 7.41 (7.35-7.45) 04/28/17 14:08 pCO2 44.0 mmHg (35.0-45.0) 04/28/17 14:08 pO2 57.0 mmHg (80.0-100.0) L 04/28/17 14:08 HCO3 26.9 mEq/L (20.0-26.0) H 04/28/17 14:08 Base Excess 2.8 mEq/L (-3.0-3.0) 04/28/17 14:08 O2 Saturation 90.0 % (92.0-100.0) L 04/28/17 14:08 Damian Test YES 04/28/17 14:08 Vent Rate NA 04/28/17 14:08 Inspired O2 21 04/28/17 14:08 Tidal Volume NA 04/28/17 14:08 PEEP NA 04/28/17 14:08 Pressure (ins/psv/peep) NA 04/28/17 14:08 Critical Value E.BARRIOS 04/28/17 14:08 Sodium 135 mEq/L (136-145) L 05/07/17 19:24 Potassium 4.3 mEq/L (3.5-5.1) 05/07/17 19:24 Chloride 104 mEq/L (98-107) 05/07/17 19:24 Carbon Dioxide 27.7 mEq/L (21.0-31.0) 05/07/17 19:24 Anion Gap 7.6 (7.0-16.0) 05/07/17 19:24 BUN 19 mg/dL (7-25) 05/07/17 19:24 Creatinine 0.9 mg/dL (0.6-1.2) 05/07/17 19:24 Est GFR ( Amer) > 60.0 ml/min (>90) 05/07/17 19:24 Est GFR (Non-Af Amer) > 60.0 ml/min 05/07/17 19:24 BUN/Creatinine Ratio 21.1 05/07/17 19:24 Glucose 127 mg/dL (70-105) H 05/07/17 19:24 POC Glucose 134 MG/DL (70 - 105) H 04/29/17 06:33 Calcium 8.7 mg/dL (8.6-10.3) 05/07/17 19:24 Total Bilirubin 1.6 mg/dL (0.3-1.0) H 05/07/17 19:24 AST 103 U/L (13-39) H 05/07/17 19:24 ALT 47 U/L (7-52) 05/07/17 19:24 Alkaline Phosphatase 135 U/L (34-104) H 05/07/17 19:24 B-Natriuretic Peptide 235.0 pg/mL (5.0-100.0) H 04/28/17 13:04 Total Protein 6.1 gm/dL (6.0-8.3) 05/07/17 19:24 Albumin 2.5 gm/dL (3.7-5.3) L 05/07/17 19:24 Globulin 3.6 gm/dL 05/07/17 19:24 Albumin/Globulin Ratio 0.7 (1.0-1.8) L 05/07/17 19:24 TSH 0.31 uIU/ml (0.34-5.60) L 04/28/17 13:04 Urine Source RANDOM 04/28/17 14:32 Urine Color YELLOW 04/28/17 14:32 Urine Clarity HAZY (CLEAR) 04/28/17 14:32 Urine pH 6.0 (4.6 - 8.0) 04/28/17 14:32 Ur Specific [place] 1.020 (1.005-1.030) 04/28/17 14:32 Urine Protein NEGATIVE mg/dL (NEGATIVE) 04/28/17 14:32 Urine Glucose (UA) NEGATIVE mg/dL (NEGATIVE) 04/28/17 14:32 Urine Ketones NEGATIVE mg/dL (NEGATIVE) 04/28/17 14:32 Urine Blood NEGATIVE (NEGATIVE) 04/28/17 14:32 Urine Nitrate NEGATIVE (NEGATIVE) 04/28/17 14:32 Urine Bilirubin NEGATIVE (NEGATIVE) 04/28/17 14:32 Urine Urobilinogen 1.0 E.U./dL (0.2 - 1.0) 04/28/17 14:32 Ur Leukocyte Esterase TRACE (NEGATIVE) H 04/28/17 14:32 Urine RBC 0-2 /hpf (0-5) 04/28/17 14:32 Urine WBC 10-25 /hpf (0-5) H 04/28/17 14:32 Ur Epithelial Cells NONE SEEN /lpf (FEW) 04/28/17 14:32 Urine Bacteria FEW /hpf (NONE SEEN) 04/28/17 14:32 - Physical Exam Vitals and I&O: Vital Signs Temp 96.9 F 05/10/17 06:20 Pulse 67 05/10/17 12:49 Resp 18 05/10/17 12:49 BP 156/65 05/10/17 09:35 Pulse Ox 98 05/10/17 12:49 Intake & Output 05/09/17 05/10/17 05/10/17 18:59 06:59 18:59 Intake Total 900 240 Balance 900 240 Intake: Oral 900 240 Other: # Voids 4 1 # Bowel Movements 2 Stool Characteristics Soft Brown Active Medications: Current Medications Acetaminophen (Tylenol) 650 mg PO Q6HR PRN PRN Reason: FEVER, NEWELL, PAIN Stop: 06/28/17 17:32 Last Admin: 05/07/17 10:02 Dose: 650 mg Albuterol Sulfate (Albuterol 2.5mg/3ml Neb Ud) 2.5 mg HHN Q4HRT PRN PRN Reason: Shortness of Breath Stop: 06/28/17 17:32 Last Admin: 05/10/17 12:46 Dose: 2.5 mg Amlodipine Besylate (Norvasc) 10 mg PO DAILY [facility] Stop: 06/29/17 08:59 Last Admin: 05/10/17 09:33 Dose: 10 mg Artificial Tears (Artificial Tears Ophth Soln) 1 drop EACH EYE TID [facility] Stop: 06/28/17 20:59 Last Admin: 05/10/17 13:54 Dose: 1 drop Buspirone HCl (Buspar) 5 mg PO BID MONSE PRN Reason: Protocol Stop: 06/29/17 08:59 Last Admin: 05/10/17 09:33 Dose: 5 mg Cholecalciferol (Vitamin D3) 5,000 iu PO DAILY [facility] Stop: 06/29/17 08:59 Last Admin: 05/10/17 09:32 Dose: 5,000 iu Citalopram Hydrobromide (Celexa) 30 mg PO DAILY [facility] Stop: 06/29/17 08:59 Last Admin: 05/10/17 09:32 Dose: 30 mg Clopidogrel Bisulfate (Plavix) 75 mg PO DAILY [facility] Stop: 06/29/17 08:59 Last Admin: 05/10/17 09:32 Dose: 75 mg Furosemide (Lasix) 40 mg PO DAILY [facility] Stop: 06/29/17 08:59 Last Admin: 05/10/17 09:35 Dose: 40 mg Lactulose (Cephulac) 10 gm PO TID [facility] Stop: 06/28/17 20:59 Last Admin: 05/10/17 13:54 Dose: 10 gm Latanoprost (Xalatan 0.005% Oph Soln) 1 drop EACH EYE HS [facility] Stop: 06/28/17 20:59 Last Admin: 05/09/17 21:31 Dose: 1 drop Levothyroxine Sodium (Synthroid) 0.2 mg PO QDAC [facility] Stop: 06/29/17 07:29 Last Admin: 05/10/17 06:36 Dose: 0.2 mg Lorazepam (Ativan) 0.5 mg PO Q8HR PRN; Protocol PRN Reason: Anxiety Stop: 06/27/17 20:28 Last Admin: 05/10/17 05:24 Dose: 0.5 mg Losartan Potassium (Cozaar) 100 mg PO DAILY [facility] Stop: 06/29/17 08:59 Last Admin: 05/10/17 09:34 Dose: 100 mg Metoprolol Succinate (Toprol Xl) 25 mg PO DAILY [facility] Stop: 06/29/17 08:59 Last Admin: 05/10/17 09:35 Dose: 25 mg Olanzapine (Zyprexa) 5 mg PO HS MONSE PRN Reason: Protocol Stop: 06/30/17 20:59 Last Admin: 05/09/17 20:39 Dose: 5 mg Olanzapine (Zyprexa) 5 mg PO DAILY [facility] PRN Reason: Protocol Stop: 07/03/17 08:59 Last Admin: 05/10/17 09:33 Dose: 5 mg Pregabalin (Lyrica) 75 mg PO HS [facility] Stop: 06/28/17 20:59 Last Admin: 05/09/17 20:39 Dose: 75 mg Zolpidem Tartrate (Ambien) 5 mg PO HS PRN PRN Reason: Insomnia Stop: 06/28/17 21:43 Last Admin: 05/09/17 20:40 Dose: 5 mg General: demented HEENT: NC/AT, PERRLA Neck: Supple Lungs: CTAB Cardiovascular: RRR, Normal S1, Normal S2, without murmur Abdomen: soft, non-tender, non-distended, positive bowel sound Extremities: excoriation, atrophy Neurological: no change, disorganized, unsteady, unable to follow command - Procedures Procedures: Procedures Procedure Code Date OTHER GROUP THERAPY 94.44 11/03/13 Internal Medicine Assmt/Plan - Assessment Assessment: anemia glaucoma cirrhosis left eye blindness copd acute uti - Plan Plan: encourage fluids continue levaquin continue current orders Nutritional Asmnt/Malnutr-PDOC - Dietary Evaluation Malnutrition Findings (Please click <Entered> for more info): Nutritional Asmnt/Malnutrition Start: 05/02/17 13: 57 Text: Status: Complete Freq: Document 05/02/17 13:57 [email or web address] (Rec: 05/02/17 14:03 [email or web address]) Nutritional Asmnt/Malnutrition Patient General Information Nutritional Screening Moderate Risk Diagnosis psychosis Pertinent Medical Hx/Surgical Hx COPD, schizophrenia, HTN, DM, anemia, glaucomma, cirrhosis, ascites Subjective Information Pt A&O x 2, suspicious of others, not appropriate for interview. PO intake has been 50-75% of pureed diet, did refuse 1 meal, but otherwise eating well. Current Diet Order/ Nutrition Support pureed Patient / S.O Not Indicated Pertinent Medications vitamin d, plavix, lasix, lactulose, synthroid Pertinent Labs 04/28 Na: 134, glucose: 120-134 - well controlled for no DM diet, BNP: 235 Nutritional Hx/Data Height 4 ft 9 in Height (Calculated Centimeters) 144.8 Current Weight (lbs) 204 lb Weight (Calculated Kilograms) 92.5 Weight (Calculated Grams) 46201.8 [place] Body Weight 92 lbs % [place] Body Weight 222 Body Mass Index (BMI) 44.1 Weight Status Morbidly Obese GI Symptoms GI Symptoms None Last BM 05/02 Difficult in: Chewing Skin Integrity/Comment: intact, no edema noted Current %PO Fair (50-74%) Estimated Nutritional Goals BEE in Kcals: Adj wt of IBW Calories/Kcals/Kg 25-30 Kcals Calculated 5452-6793 Protein: Adj wt of IBW Protein g/k Protein Calculated 55 Fluid: ml 8902-6737 mL Nutritional Problem 1. Problem Problem overweight/obesity Etiology lifestyle Signs/Symptoms: BMI: 44 Malnutrition Alert Is there a minimum of two criteria No selected? Query Text:Check all the applicable criteria. A minimum of two criteria are recommended for diagnosis of either severe or non-severe malnutrition. Malnutrition Related to Morbid Obesity Malnutrition related to morbid obesity BMI> or equal to 40 Query Text:(Any 1 Criteria met) Malnutrition related to morbid obesity Yes Intervention/Recommendation Comments 1. Continue pureed diet as ordered. Do not recommend CCHO restriction as patient with only fair PO intake and POC glucose is controlled. Expected Outcomes/Goals Expected Outcomes/Goals PO intake >50%, labs: WNL monitor wt, labs, skin, PO intake
--- NOTE | 2017-05-10 20:42 | Progress Notes ---
DATE: 05/10/2017 The patient seems to be improving. Complains of anxiety, still with some panic, noting any SI, decreasing. Staff noting she has been doing better. She still remains withdrawn and reclusive. MEDICATIONS: Noted. ASSESSMENT: The patient anxious, ongoing SI, but improvement noted. PLAN: We will continue to monitor. Given her ongoing symptoms, she is not safe for discharge, but she is verbalizing. She is feeling somewhat better, happy with the added dose of Zyprexa. [facility]# [id number]
[2017-05-11] MEDS: Albuterol Nebulizer 2.5mg/3mL HHN PRN ×4 (03:30→14:07)
[2017-05-11] MEDS: Levothyroxine 0.1 Mg Tab PO SCH (06:52)
[2017-05-11] MEDS: Polyvinyl Alcohol Ophth Soln 15 mL Bottle EACH EYE SCH ×2 (09:01→14:24)
[2017-05-11] MEDS: Multivitamin w/ Minerals Tab PO SCH (09:03)
[2017-05-11] MEDS: Lactulose 10 Gm/15 mL 30mL UDC PO SCH ×2 (09:07→14:24)
--- NOTE | 2017-05-11 13:29 | Internal Medicine Prog Note ---
Internal Medicine Subjective - Subjective Service Date: 05/11/17 Patient is:: awake, verbal, interactive, in bed, agitated, confused Patient Complaints of:: unable to sleep Per staff patient has:: no adverse event, no episodes of fall, agitated, noncompliant, tolerating meds Internal Medicine Objective - Results Result Diagrams: 04/28/17 13:04 05/07/17 19:24 Recent Labs: Laboratory Last Values WBC 6.3 Th/cmm (4.8-10.8) 04/28/17 13:04 RBC 3.50 Mil/cmm (3.80-5.10) L 04/28/17 13:04 Hgb 10.1 gm/dL (12-16) L D 04/28/17 13:04 Hct 30.9 % (41.0-60) L D 04/28/17 13:04 MCV 88.4 fl (81-100) 04/28/17 13:04 MCH 28.8 pg (27.0-31.0) 04/28/17 13:04 MCHC Differential 32.5 pg (28.0-36.0) 04/28/17 13:04 RDW 17.4 % (11.5-20.0) 04/28/17 13:04 Plt Count 90 Th/cmm (150-400) L D 04/28/17 13:04 MPV 10.3 fl 04/28/17 13:04 Band Neutrophils % 1 % (0-10) 04/28/17 13:04 Neutrophils (Manual) 70 % (40-80) 04/28/17 13:04 Lymphocytes 15 % (20-50) L 04/28/17 13:04 Monocytes 7 % (2-10) 04/28/17 13:04 Eosinophils 7 % (0-5) H 04/28/17 13:04 Basophils 0 % (0-3) 04/28/17 13:04 Specimen Source Arterial 04/28/17 14:08 Sample Site Right Radial 04/28/17 14:08 pH 7.41 (7.35-7.45) 04/28/17 14:08 pCO2 44.0 mmHg (35.0-45.0) 04/28/17 14:08 pO2 57.0 mmHg (80.0-100.0) L 04/28/17 14:08 HCO3 26.9 mEq/L (20.0-26.0) H 04/28/17 14:08 Base Excess 2.8 mEq/L (-3.0-3.0) 04/28/17 14:08 O2 Saturation 90.0 % (92.0-100.0) L 04/28/17 14:08 Damian Test YES 04/28/17 14:08 Vent Rate NA 04/28/17 14:08 Inspired O2 21 04/28/17 14:08 Tidal Volume NA 04/28/17 14:08 PEEP NA 04/28/17 14:08 Pressure (ins/psv/peep) NA 04/28/17 14:08 Critical Value E.BARRIOS 04/28/17 14:08 Sodium 135 mEq/L (136-145) L 05/07/17 19:24 Potassium 4.3 mEq/L (3.5-5.1) 05/07/17 19:24 Chloride 104 mEq/L (98-107) 05/07/17 19:24 Carbon Dioxide 27.7 mEq/L (21.0-31.0) 05/07/17 19:24 Anion Gap 7.6 (7.0-16.0) 05/07/17 19:24 BUN 19 mg/dL (7-25) 05/07/17 19:24 Creatinine 0.9 mg/dL (0.6-1.2) 05/07/17 19:24 Est GFR ( Amer) > 60.0 ml/min (>90) 05/07/17 19:24 Est GFR (Non-Af Amer) > 60.0 ml/min 05/07/17 19:24 BUN/Creatinine Ratio 21.1 05/07/17 19:24 Glucose 127 mg/dL (70-105) H 05/07/17 19:24 POC Glucose 134 MG/DL (70 - 105) H 04/29/17 06:33 Calcium 8.7 mg/dL (8.6-10.3) 05/07/17 19:24 Total Bilirubin 1.6 mg/dL (0.3-1.0) H 05/07/17 19:24 AST 103 U/L (13-39) H 05/07/17 19:24 ALT 47 U/L (7-52) 05/07/17 19:24 Alkaline Phosphatase 135 U/L (34-104) H 05/07/17 19:24 B-Natriuretic Peptide 235.0 pg/mL (5.0-100.0) H 04/28/17 13:04 Total Protein 6.1 gm/dL (6.0-8.3) 05/07/17 19:24 Albumin 2.5 gm/dL (3.7-5.3) L 05/07/17 19:24 Globulin 3.6 gm/dL 05/07/17 19:24 Albumin/Globulin Ratio 0.7 (1.0-1.8) L 05/07/17 19:24 TSH 0.31 uIU/ml (0.34-5.60) L 04/28/17 13:04 Urine Source RANDOM 04/28/17 14:32 Urine Color YELLOW 04/28/17 14:32 Urine Clarity HAZY (CLEAR) 04/28/17 14:32 Urine pH 6.0 (4.6 - 8.0) 04/28/17 14:32 Ur Specific [place] 1.020 (1.005-1.030) 04/28/17 14:32 Urine Protein NEGATIVE mg/dL (NEGATIVE) 04/28/17 14:32 Urine Glucose (UA) NEGATIVE mg/dL (NEGATIVE) 04/28/17 14:32 Urine Ketones NEGATIVE mg/dL (NEGATIVE) 04/28/17 14:32 Urine Blood NEGATIVE (NEGATIVE) 04/28/17 14:32 Urine Nitrate NEGATIVE (NEGATIVE) 04/28/17 14:32 Urine Bilirubin NEGATIVE (NEGATIVE) 04/28/17 14:32 Urine Urobilinogen 1.0 E.U./dL (0.2 - 1.0) 04/28/17 14:32 Ur Leukocyte Esterase TRACE (NEGATIVE) H 04/28/17 14:32 Urine RBC 0-2 /hpf (0-5) 04/28/17 14:32 Urine WBC 10-25 /hpf (0-5) H 04/28/17 14:32 Ur Epithelial Cells NONE SEEN /lpf (FEW) 04/28/17 14:32 Urine Bacteria FEW /hpf (NONE SEEN) 04/28/17 14:32 - Physical Exam Vitals and I&O: Vital Signs Temp 98.2 F 05/11/17 06:11 Pulse 68 05/11/17 11:03 Resp 18 05/11/17 11:03 BP 131/69 05/11/17 09:05 Pulse Ox 97 05/11/17 11:03 Intake & Output 05/10/17 05/11/17 05/11/17 18:59 06:59 18:59 Intake Total 800 720 Balance 800 720 Intake: Oral 800 720 Other: # Voids 4 3 # Bowel Movements 2 Active Medications: Current Medications Acetaminophen (Tylenol) 650 mg PO Q6HR PRN PRN Reason: FEVER, NEWELL, PAIN Stop: 06/28/17 17:32 Last Admin: 05/11/17 09:06 Dose: 650 mg Albuterol Sulfate (Albuterol 2.5mg/3ml Neb Ud) 2.5 mg HHN Q4HRT PRN PRN Reason: Shortness of Breath Stop: 06/28/17 17:32 Last Admin: 05/11/17 11:02 Dose: 2.5 mg Amlodipine Besylate (Norvasc) 10 mg PO DAILY [facility] Stop: 06/29/17 08:59 Last Admin: 05/11/17 09:03 Dose: 10 mg Artificial Tears (Artificial Tears Ophth Soln) 1 drop EACH EYE TID [facility] Stop: 06/28/17 20:59 Last Admin: 05/11/17 09:01 Dose: 1 drop Buspirone HCl (Buspar) 5 mg PO BID MON[facility] PRN Reason: Protocol Stop: 06/29/17 08:59 Last Admin: 05/11/17 09:04 Dose: 5 mg Cholecalciferol (Vitamin D3) 5,000 iu PO DAILY [facility] Stop: 06/29/17 08:59 Last Admin: 05/11/17 09:02 Dose: 5,000 iu Citalopram Hydrobromide (Celexa) 30 mg PO DAILY [facility] Stop: 06/29/17 08:59 Last Admin: 05/11/17 09:05 Dose: 30 mg Clopidogrel Bisulfate (Plavix) 75 mg PO DAILY [facility] Stop: 06/29/17 08:59 Last Admin: 05/11/17 09:03 Dose: 75 mg Furosemide (Lasix) 40 mg PO DAILY [facility] Stop: 06/29/17 08:59 Last Admin: 05/11/17 09:04 Dose: 40 mg Lactulose (Cephulac) 10 gm PO TID [facility] Stop: 06/28/17 20:59 Last Admin: 05/11/17 09:07 Dose: 10 gm Latanoprost (Xalatan 0.005% Oph Soln) 1 drop EACH EYE HS [facility] Stop: 06/28/17 20:59 Last Admin: 05/10/17 21:51 Dose: 1 drop Levothyroxine Sodium (Synthroid) 0.2 mg PO QDAC [facility] Stop: 06/29/17 07:29 Last Admin: 05/11/17 06:52 Dose: 0.2 mg Lorazepam (Ativan) 0.5 mg PO Q8HR PRN; Protocol PRN Reason: Anxiety Stop: 06/27/17 20:28 Last Admin: 05/11/17 05:30 Dose: 0.5 mg Losartan Potassium (Cozaar) 100 mg PO DAILY [facility] Stop: 06/29/17 08:59 Last Admin: 05/11/17 09:05 Dose: 100 mg Metoprolol Succinate (Toprol Xl) 25 mg PO DAILY [facility] Stop: 06/29/17 08:59 Last Admin: 05/11/17 09:01 Dose: 25 mg Olanzapine (Zyprexa) 5 mg PO HS MONSE PRN Reason: Protocol Stop: 06/30/17 20:59 Last Admin: 05/10/17 20:31 Dose: 5 mg Olanzapine (Zyprexa) 5 mg PO DAILY [facility] PRN Reason: Protocol Stop: 07/03/17 08:59 Last Admin: 05/11/17 09:04 Dose: 5 mg Pregabalin (Lyrica) 75 mg PO HS [facility] Stop: 06/28/17 20:59 Last Admin: 05/10/17 20:31 Dose: 75 mg Zolpidem Tartrate (Ambien) 5 mg PO HS PRN PRN Reason: Insomnia Stop: 06/28/17 21:43 Last Admin: 05/10/17 20:30 Dose: 5 mg General: demented HEENT: NC/AT, PERRLA Neck: Supple Lungs: CTAB Cardiovascular: RRR, Normal S1, Normal S2, without murmur Abdomen: soft, non-tender, non-distended, positive bowel sound Extremities: excoriation, atrophy Neurological: no change, disorganized, unsteady, unable to follow command - Procedures Procedures: Procedures Procedure Code Date OTHER GROUP THERAPY 94.44 01/13/13 Internal Medicine Assmt/Plan - Assessment Assessment: anemia glaucoma cirrhosis left eye blindness copd acute uti - Plan Plan: encourage fluids continue levaquin continue current orders Nutritional Asmnt/Malnutr-PDOC - Dietary Evaluation Malnutrition Findings (Please click <Entered> for more info): Nutritional Asmnt/Malnutrition Start: 05/02/17 13: 57 Text: Status: Complete Freq: Document 05/02/17 13:57 [email or web address] (Rec: 05/02/17 14:03 [email or web address]) Nutritional Asmnt/Malnutrition Patient General Information Nutritional Screening Moderate Risk Diagnosis psychosis Pertinent Medical Hx/Surgical Hx COPD, schizophrenia, HTN, DM, anemia, glaucomma, cirrhosis, ascites Subjective Information Pt A&O x 2, suspicious of others, not appropriate for interview. PO intake has been 50-75% of pureed diet, did refuse 1 meal, but otherwise eating well. Current Diet Order/ Nutrition Support pureed Patient / S.O Not Indicated Pertinent Medications vitamin d, plavix, lasix, lactulose, synthroid Pertinent Labs 04/28 Na: 134, glucose: 120-134 - well controlled for no DM diet, BNP: 235 Nutritional Hx/Data Height 4 ft 9 in Height (Calculated Centimeters) 144.8 Current Weight (lbs) 204 lb Weight (Calculated Kilograms) 92.5 Weight (Calculated Grams) 65210.8 [place] Body Weight 92 lbs % [place] Body Weight 222 Body Mass Index (BMI) 44.1 Weight Status Morbidly Obese GI Symptoms GI Symptoms None Last BM 05/02 Difficult in: Chewing Skin Integrity/Comment: intact, no edema noted Current %PO Fair (50-74%) Estimated Nutritional Goals BEE in Kcals: Adj wt of IBW Calories/Kcals/Kg 25-30 Kcals Calculated 1169-5571 Protein: Adj wt of IBW Protein g/k Protein Calculated 55 Fluid: ml 3326-9667 mL Nutritional Problem 1. Problem Problem overweight/obesity Etiology lifestyle Signs/Symptoms: BMI: 44 Malnutrition Alert Is there a minimum of two criteria No selected? Query Text:Check all the applicable criteria. A minimum of two criteria are recommended for diagnosis of either severe or non-severe malnutrition. Malnutrition Related to Morbid Obesity Malnutrition related to morbid obesity BMI> or equal to 40 Query Text:(Any 1 Criteria met) Malnutrition related to morbid obesity Yes Intervention/Recommendation Comments 1. Continue pureed diet as ordered. Do not recommend CCHO restriction as patient with only fair PO intake and POC glucose is controlled. Expected Outcomes/Goals Expected Outcomes/Goals PO intake >50%, labs: WNL monitor wt, labs, skin, PO intake
--- NOTE | 2017-05-11 19:34 | Discharge Summary ---
DATE OF DISCHARGE: DATE OF ADMISSION: 04/28/2017 DATE OF DISCHARGE: 05/11/2017 HISTORY OF PRESENT ILLNESS: A 61-year-old female brought in from [facility], severe agitation, depression, apparently became aggressive with staff, severe anxiety and panic. PAST PSYCHIATRIC HISTORY: Schizophrenia, panic and anxiety. SOCIAL HISTORY: Resides at a correction, unclear family support. 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 Please see full psych eval for further details. PROVISIONAL DIAGNOSES: Schizophrenia; mood, unspecified; anxiety, unspecified; also panic disorder. MEDICAL: Please see full H and P. HOSPITAL COURSE: Initial assessment, the patient restarted back on her medications including Zyprexa, Ativan as needed, Celexa, BuSpar, as well over the course of the hospitalization, the patient improved, particularly when I added some daytime Zyprexa to her regimen, her anxiety improved. Her psychosis, improved. She was no longer suicidal. No oversedation noted and much calmer and more able to verbalize her needs, staff noting improvement. CONDITION UPON DISCHARGE: Improved, better ADLs, better eye contacts. Speech within normal limits. Mood "okay." Affect constricted. Thought processes are limited, somewhat impoverished. No SI. No HI. No psychosis. Better insight. Anxiety better controlled. DISCHARGE DIAGNOSES: Schizophrenia; major depression, unspecified; anxiety, unspecified; rule out panic disorder. PROGNOSIS: The patient follows up with outpatient mental services and remains treatment compliant. Prognosis will improve, otherwise guarded. [facility]# [id number]
== END 2017-05-11 16:00 | disposition home or self-care (01) | DRG 885 ==
LOC: ER 11:52 → GERO 16:28
PROVIDERS: ADMIT Psychiatry & Neurology Psychiatry; ATTEND Psychiatry & Neurology Psychiatry
DX: F20.3 Undifferentiated schizophrenia (principal); J44.1 Chronic obstructive pulmonary disease with (acute) exacerbation; E46 Unspecified protein-calorie malnutrition; K74.60 Unspecified cirrhosis of liver; E11.9 Type 2 diabetes mellitus without complications; Z68.41 Body mass index [BMI] 40.0-44.9, adult; D64.9 Anemia, unspecified; E03.9 Hypothyroidism, unspecified; H40.9 Unspecified glaucoma; F41.9 Anxiety disorder, unspecified; N39.0 Urinary tract infection, site not specified; H54.40 Blindness, one eye, unspecified eye; I10 Essential (primary) hypertension; R09.02 Hypoxemia; J44.9 Chronic obstructive pulmonary disease, unspecified; Z88.8 Allergy status to other drugs, medicaments and biological substances; Z87.891 Personal history of nicotine dependence
CPT/HCPCS: 36415-UA; 36600-90; 71045-TC; 80053-TC; 81001-TC; 82803-TC; 82948-90; 83880-TC; 84443-TC; 85007-TC; 85027-TC; 87086-90; 93005; 94640; 94760; J0696; J2930; J7030; J7051; J7613; Z7610

== ENCOUNTER 2017-07-27 23:14 | Inpatient (IN) | payer MEDICARE, MEDICAID ==
--- NOTE | 2017-07-27 23:35 | ED Physician Chart ---
ED Chief Complaint/HPI - Patient Information Date Seen:: 07/27/17 Time Seen:: 23:25 Chief Complaint:: right shoulder and right leg pain History of Present Illness:: Patient states she's had right leg and right shoulder pain for 3 days. She states she fell 4-5 days ago but did not injure herself so the right shoulder and right leg pain rule spontaneous onset. Patient states she ordinarily ambulates with the aid of a walker. Allergies:: Allergies Allergy/AdvReac Type Severity Reaction Status Date / Time ranitidine Allergy Verified 04/28/17 12:07 Historian:: Patient, EMS ED Review of Systems - Review of Systems General/Constitutional: No fever, No chills, No weight loss, No weakness, No diaphoresis, No edema, No loss of appetite Skin: No skin lesions, No rash, No bruising Head: No headache, No light-headedness Eyes: No loss of vision, No pain, No diplopia ENT: No earache, No nasal drainage, No sore throat, No tinnitus Neck: No neck pain, No swelling, No thyromegaly, No stiffness, No mass noted Cardio Vascular: No chest pain, No palpitations, No PND, No orthopnea, No edema Pulmonary: No SOB, No cough, No sputum, No wheezing GI: No nausea, No vomiting, No diarrhea, No pain, No melena, No hematochezia, No constipation, No hematemesis G/U: No dysuria, No frequency, No hematuria Musculoskeletal: Bone or joint pain, No back pain, Muscle pain Endocrine: No polyuria, No polydipsia Psychiatric: Prior psych history, No depression, No anxiety, No suicidal ideation Hematopoietic: No bruising, No lymphadenopathy Allergic/Immuno: No urticaria, No angioedema Neurological: No syncope, No focal symptoms, No weakness, No paresthesia, No headache, No seizure, No dizziness, No confusion, No vertigo ED Past Medical History - Past Medical History Past Medical History: HTN, DM, CAD (psychosis), Asthma/COPD, Other (status post urinary tract infection; no glaucoma; congestive heart failure; chronic pain; schizophrenia; major depression) Family History: Heart disease Social History: Non Smoker, No Alcohol, Care Facility Surgical History: Hysterectomy, other (right knee replacement) Psychiatricy History: Schizophrenia Medication: Reviewed Family Medical History - Family Member Mother History Unknown: Yes Ethnicity: Unknown Living Status: Unknown Hx Family Cancer: No Hx Family Coronary Artery Disease: (unknown) Hx Family Congestive Heart Failure: No Hx Family Hypertension: No Hx Family Stroke: (unknown) Hx Family Diabetes: No Hx Family Seizures: No Hx Family Dementia: No Hx Family AIDS: (unknown) Hx Family HIV: No Hx Family COPD: No Hx Family Hepatitis: No Hx Family Psychiatric Problems: (unknown) Hx Family Tuberculosis: No ED Physical Exam - Physical Examination General/Constitutional: Well-developed, well-nourished Other Gen/Cons comments:: Mildly chronically ill-appearing; in no acute distress Head: Atraumatic Eyes: Lids, conjuctiva normal, PERRL, EOMI Skin: Nl inspection, No rash, No skin lesions, No ecchymosis, Well hydrated, No lymphadenopathy ENMT: External ears, nose nl, Nasal exam nl, Lips, teeth, gums nl Neck: Nontender, Full ROM w/o pain, No JVD, No nuchal rigidity, No bruit, No mass, No stridor Respiratory: Nl effort/Exclusion, Clear to Auscultation, No Wheeze/Rhonchi/Rales Cardio Vascular: RRR, NL S1 S2 Other Cardio Vascular comments:: 3/6 systolic murmur heard best over the second right intercostal space GI: No tenderness/rebounding/guarding, No organomegaly, No hernia, Normal BS's, Nondistended, No mass/bruits, No McBurney tenderness : No CVA tenderness Other Extremities comments:: 3.5 out of 4 pretibial pitting edema Neuro/Psych: Alert/oriented, DTR's symmetric, Normal sensory exam, Normal motor strength, Judgement/insight normal, Mood normal, Normal gait, No focal deficits Misc: Normal back, No paraspinal tenderness Other Misc comments:: Tremors both hands ED Labs/Radiology/EKG Results - Lab Results Results: Laboratory Tests 07/27/17 07/27/17 07/27/17 23:40 23:40 23:40 WBC 8.3 RBC 3.70 L Hgb 10.9 L Hct 33.4 L MCV 90.1 MCH 29.6 MCHC Differential 32.8 RDW 18.6 Plt Count 76 L MPV 9.8 Neutrophils % 65.6 Lymphocytes % 20.1 Monocytes % 11.7 H Eosinophils % 2.5 Basophils % 0.1 Sodium 136 Potassium 3.5 Chloride 102 Carbon Dioxide 30.3 Anion Gap 7.2 BUN 16 Creatinine 0.9 Est GFR ( Amer) > 60.0 Est GFR (Non-Af Amer) > 60.0 BUN/Creatinine Ratio 17.8 Glucose 95 Calcium 8.4 L Total Bilirubin 2.3 H AST 105 H ALT 63 H Alkaline Phosphatase 136 H B-Natriuretic Peptide 225.0 H Total Protein 6.6 Albumin 2.2 L Globulin 4.4 Albumin/Globulin Ratio 0.5 L - Radiology Results Results: X-ray right shoulder showed arthritis. x-ray right knee showed a prosthesis - EKG Interpretations Rate & Rhythm: normal sinus rhythm with a rate of 57 [place]: normal ED Septic Shock - . Is Septic Shock (SBP<90, OR Lactate>4 mmol\L) present?: No ED Reassessment (Disposition) - Reassessment Reassessment Condition:: Unchanged - Diagnosis Diagnosis:: Acute exacerbation of chronic pain right shoulder and right knee; anemia` - Patient Disposition Admitted to:: Med/Surg Spoke to:: Champ Enrique Admitting Medical Physician:: Champ Enrique Condition at Disposition:: Stable, Unchanged
[2017-07-27 23:47] LABS: HEMATOCRIT 33.4 % (41.0-60); HEMOGLOBIN 10.9 gm/dL (12-16); MEAN CELL VOLUME 90.1 fl (81-100); MEAN CORPUSCULAR HEMOGLOBIN 29.6 pg (27.0-31.0); MEAN CORPUSCULAR HGB CONC 32.8 pg (28.0-36.0); MEAN PLATELET VOLUME 9.8 fl; PLATELET COUNT 76 Th/cmm (150-400); RED CELL DISTRIBUTION WIDTH 18.6 % (11.5-20.0); WHITE BLOOD COUNT 8.3 Th/cmm (4.8-10.8)
[2017-07-28 00:03] LABS: ALB/GLOB RATIO 0.5 (1.0-1.8); ALBUMIN 2.2 gm/dL (3.7-5.3); ALKALINE PHOSPHATASE 136 U/L (34-104); ANION GAP 7.2 (7.0-16.0); BILIRUBIN,TOTAL 2.3 mg/dL (0.3-1.0); BUN - UREA NITROGEN 16 mg/dL (7-25); CALCIUM SERUM 8.4 mg/dL (8.6-10.3); CARBON DIOXIDE 30.3 mEq/L (21.0-31.0); CHLORIDE 102 mEq/L (98-107); CREATININE - SERUM 0.9 mg/dL (0.6-1.2); GFR AFRICAN-AMERICAN > 60.0 ml/min (>90); GFR NON AFRICAN-AMERICAN > 60.0 ml/min; GLUCOSE 95 mg/dL (70-105); POTASSIUM SERUM 3.5 mEq/L (3.5-5.1); SGOT 105 U/L (13-39); SGPT/ALT 63 U/L (7-52); SODIUM SERUM 136 mEq/L (136-145); TOTAL PROTEIN,SERUM 6.6 gm/dL (6.0-8.3)
[2017-07-28 00:10] LABS: % BASOPHILS 0.1 % (0.0-2.0); % EOSINOPHILS 2.5 % (0.0-5.0); % LYMPHOCYTES 20.1 % (20.0-50.0); % MONOCYTES 11.7 % (2.0-10.0); % NEUTROPHILS 65.6 % (40.0-80.0); EOSINOPHILE ABSOLUTE 0.1 Th/cmm (0.1-0.4); LYMPHOCYTE ABSOLUTE 0.9 Th/cmm (1.5-3.0); MONOCYTE ABSOLUTE 0.5 Th/cmm (0.3-1.0)
[2017-07-28] MEDS ORDERED: D5-0.45NS 1,000 ML IV SCH (08:45)
--- NOTE | 2017-07-28 09:27 | Diagnostic Imaging Report ---
Portable chest x-ray HISTORY: Shortness of breath The overall heart size is difficult to assess with portable technique in a poor inspiration. No acute focal pulmonary processes. No hilar or mediastinal abnormalities. Mild atherosclerotic calcification seen within the aortic arch. IMPRESSION: 1. No acute abnormalities 2. Atherosclerotic vascular changes
--- NOTE | 2017-07-28 09:28 | Diagnostic Imaging Report ---
Right knee (2 views) HISTORY: Pain There is a right knee arthroplasty. Position alignment are anatomic. No acute abnormalities. No fractures. IMPRESSION: 1. No acute abnormalities 2. Right knee arthroplasty
--- NOTE | 2017-07-28 09:29 | Diagnostic Imaging Report ---
Right shoulder (2 views) HISTORY: Pain There are severe degenerative changes with generalized joint space narrowing. Irregularity and subcortical cyst formation noted about the margin of the humeral head. Narrowing hypertrophic bone formation seen about the acromioclavicular joint. No fractures. No dislocation. No abnormal soft tissue calcifications. IMPRESSION: 1. Severe degenerative joint disease
[2017-07-28] MEDS: Lactulose 10 Gm/15 mL 30mL UDC PO SCH ×3 (09:42→21:19)
[2017-07-28] MEDS: Multivitamin w/ Minerals Tab PO SCH (09:44)
[2017-07-28] MEDS: Benztropine 1 MG TAB PO SCH ×2 (09:49→18:28)
--- NOTE | 2017-07-28 09:55 | Internal Medicine Prog Note ---
Internal Medicine Subjective - Subjective Service Date: 07/28/17 ([id number] hn ) Internal Medicine Objective - Results Result Diagrams: 07/27/17 23:40 07/27/17 23:40 Recent Labs: Laboratory Last Values WBC 8.3 Th/cmm (4.8-10.8) 07/27/17 23:40 RBC 3.70 Mil/cmm (3.80-5.10) L 07/27/17 23:40 Hgb 10.9 gm/dL (12-16) L 07/27/17 23:40 Hct 33.4 % (41.0-60) L 07/27/17 23:40 MCV 90.1 fl (81-100) 07/27/17 23:40 MCH 29.6 pg (27.0-31.0) 07/27/17 23:40 MCHC Differential 32.8 pg (28.0-36.0) 07/27/17 23:40 RDW 18.6 % (11.5-20.0) 07/27/17 23:40 Plt Count 76 Th/cmm (150-400) L 07/27/17 23:40 MPV 9.8 fl 07/27/17 23:40 Neutrophils % 65.6 % (40.0-80.0) 07/27/17 23:40 Lymphocytes % 20.1 % (20.0-50.0) 07/27/17 23:40 Monocytes % 11.7 % (2.0-10.0) H 07/27/17 23:40 Eosinophils % 2.5 % (0.0-5.0) 07/27/17 23:40 Basophils % 0.1 % (0.0-2.0) 07/27/17 23:40 Sodium 136 mEq/L (136-145) 07/27/17 23:40 Potassium 3.5 mEq/L (3.5-5.1) 07/27/17 23:40 Chloride 102 mEq/L (98-107) 07/27/17 23:40 Carbon Dioxide 30.3 mEq/L (21.0-31.0) 07/27/17 23:40 Anion Gap 7.2 (7.0-16.0) 07/27/17 23:40 BUN 16 mg/dL (7-25) 07/27/17 23:40 Creatinine 0.9 mg/dL (0.6-1.2) 07/27/17 23:40 Est GFR ( Amer) > 60.0 ml/min (>90) 07/27/17 23:40 Est GFR (Non-Af Amer) > 60.0 ml/min 07/27/17 23:40 BUN/Creatinine Ratio 17.8 07/27/17 23:40 Glucose 95 mg/dL (70-105) 07/27/17 23:40 Calcium 8.4 mg/dL (8.6-10.3) L 07/27/17 23:40 Total Bilirubin 2.3 mg/dL (0.3-1.0) H 07/27/17 23:40 AST 105 U/L (13-39) H 07/27/17 23:40 ALT 63 U/L (7-52) H 07/27/17 23:40 Alkaline Phosphatase 136 U/L (34-104) H 07/27/17 23:40 B-Natriuretic Peptide 225.0 pg/mL (5.0-100.0) H 07/27/17 23:40 Total Protein 6.6 gm/dL (6.0-8.3) 07/27/17 23:40 Albumin 2.2 gm/dL (3.7-5.3) L 07/27/17 23:40 Globulin 4.4 gm/dL 07/27/17 23:40 Albumin/Globulin Ratio 0.5 (1.0-1.8) L 07/27/17 23:40 - Physical Exam Vitals and I&O: Vital Signs Temp 98.4 F 07/28/17 04:00 Pulse 80 07/28/17 09:47 Resp 22 07/28/17 04:00 BP 140/68 07/28/17 09:47 Pulse Ox 97 07/28/17 04:00 Intake & Output 07/27/17 07/28/17 07/28/17 18:59 06:59 18:59 Weight (lbs) 228 lb 3 oz Other: # Voids 2 # Bowel Movements 0 Weight Source Bedscale Active Medications: Current Medications Acetaminophen/Hydrocodone Bitart ([place] 5mg/325mg) 1 tab PO BID PRN PRN Reason: Pain (Severe) Stop: 09/26/17 08:33 Artificial Tears (Artificial Tears Ophth Soln) 1 drop EACH EYE TID [facility] Stop: 09/26/17 08:59 Aspirin (Aspirin Chewable) 81 mg PO DAILY [facility] Stop: 09/26/17 08:59 Benztropine Mesylate (Cogentin) 1 mg PO BID [facility] Stop: 09/26/17 08:59 Last Admin: 07/28/17 09:49 Dose: 1 mg Buspirone HCl (Buspar) 5 mg PO BID [facility] PRN Reason: Protocol Stop: 09/26/17 08:59 Last Admin: 07/28/17 09:48 Dose: 5 mg Cholecalciferol (Vitamin D3) 5,000 iu PO DAILY [facility] Stop: 09/26/17 08:59 Last Admin: 07/28/17 09:44 Dose: 5,000 iu Citalopram Hydrobromide (Celexa) 30 mg PO DAILY [facility] PRN Reason: Protocol Stop: 09/26/17 08:59 Last Admin: 07/28/17 09:43 Dose: 30 mg Dextrose/Sodium Chloride (D5-0.45ns) 1,000 mls @ 80 mls/hr IV .[id number] [facility] Stop: 09/26/17 08:44 Lactulose (Cephulac) 20 gm PO TID [facility] Stop: 09/26/17 08:59 Last Admin: 07/28/17 09:42 Dose: 20 gm Latanoprost (Xalatan 0.005% Ophth Soln) 1 drop EACH EYE HS [facility] Stop: 09/26/17 20:59 Levothyroxine Sodium (Synthroid) 0.2 mg PO QDAC [facility] Stop: 09/26/17 11:29 Lorazepam (Ativan) 0.5 mg PO Q8H PRN; Protocol PRN Reason: Anxiety Stop: 09/26/17 08:33 Losartan Potassium (Cozaar) 100 mg PO DAILY [facility] Stop: 09/26/17 09:59 Metoprolol Succinate (Toprol Xl) 25 mg PO DAILY [facility] Stop: 09/26/17 08:59 Last Admin: 07/28/17 09:47 Dose: 25 mg Morphine Sulfate (Morphine) 1 mg IV Q4HR PRN PRN Reason: Pain (Severe) Stop: 09/26/17 01:13 Olanzapine (Zyprexa) 5 mg PO Q12H [facility] PRN Reason: Protocol Stop: 09/26/17 08:44 Last Admin: 07/28/17 09:48 Dose: 5 mg Pregabalin (Lyrica) 75 mg PO [facility] Stop: 09/26/17 20:59 - Procedures Procedures: Procedures Procedure Code Date OTHER GROUP THERAPY 94.44 01/13/13
--- NOTE | 2017-07-28 10:37 | History & Physical ---
ADMIT DATE: 07/28/[address] Champ Enrique. CHIEF COMPLAINT: Right shoulder pain and right leg pain. HISTORY OF PRESENT ILLNESS: This is a 61-year-old female who has a 3-day history of right leg and right shoulder pain. The patient states that about 5 days ago she fell from her bed, injuring her right shoulder, but no laceration is noted. For further management, the patient is now admitted to the med/surg unit. PAST MEDICAL HISTORY: COPD, schizophrenia, hypertension, diabetes, anemia, glaucoma, cirrhosis, ascites, left eye blindness. SOCIAL HISTORY: The patient is a jail resident. MEDICATIONS: Please see medication reconciliation. FAMILY HISTORY: Noncontributory. REVIEW OF SYSTEMS: GENERAL: Denies any fevers and chills. CARDIOVASCULAR: Denies chest pain. RESPIRATORY: Denies shortness of breath. GASTROINTESTINAL: Denies nausea, vomiting, abdominal pain. GENITOURINARY: Denies increased frequency or dysuria. NEUROLOGIC: No headaches, seizures, or syncope. MUSCULOSKELETAL: The patient complains of right shoulder pain. All other systems are reviewed and are negative. PHYSICAL EXAMINATION: GENERAL: This is an elderly female, awake, alert, in no apparent distress. VITAL SIGNS: Temperature 99.4, heart rate 80, blood pressure 140/68, respirations 22, O2 97%. HEENT: Head: Normocephalic, atraumatic. NECK: Supple. No mass. LUNGS: Clear bilaterally. HEART: Regular rate and rhythm. ABDOMEN: Soft, nontender. LABORATORY DATA: WBC 8.3, H and H 10.9, 32.4, platelet of 76. Sodium 136, potassium 3.5, chloride 102, BUN 16, creatinine 0.9, albumin of 2.2. DIAGNOSTICS: The patient had a knee x-ray done and the impression is no acute abnormalities. Right knee arthroplasty. The patient also had a shoulder x-ray done and the impression is severe degenerative joint disease. The patient also had a chest x-ray done and impression is no acute abnormalities, atherosclerotic vascular changes. ASSESSMENT: 1. Acute right knee pain, status post fall. 2. Mild protein-calorie malnutrition, hypertension, diabetes, hypothyroidism, anemia, history of glaucoma, cirrhosis, left eye blindness, chronic obstructive pulmonary disease. PLAN: The patient will be admitted to the med/surg unit. Fall precautions will be initiated. We will get psych on the case. We will also get PT evaluation. Keep patient on IV fluids for hydration. We will continue to monitor this patient. JOB# [id number]
[2017-07-28] MEDS: Morphine Sulfate 4 mg/mL 1mL Syr IV PRN (11:32)
[2017-07-28] MEDS: Aspirin 81mg Chewable Tab PO SCH (12:00)
[2017-07-28] MEDS ORDERED: VTE Chemical Prophylaxis Screen/Admission MC PRN (13:39)
[2017-07-28] MEDS: Levothyroxine 0.1 Mg Tab PO SCH (15:00)
[2017-07-28] MEDS: Lidocaine 5% Patch TD SCH (17:04)
[2017-07-28] MEDS: Hydrocodone/APAP 5mg/325mg Tab PO PRN (21:18)
[2017-07-28] MEDS: Polyvinyl Alcohol Ophth Soln 15 mL Bottle EACH EYE SCH (21:45)
[2017-07-29 06:05] LABS: HEMOGLOBIN 10.3 gm/dL (12-16); MEAN CORPUSCULAR HGB CONC 33.3 pg (28.0-36.0); MEAN PLATELET VOLUME 9.9 fl; PLATELET COUNT 62 Th/cmm (150-400); RED BLOOD COUNT 3.45 Mil/cmm (3.80-5.10); RED CELL DISTRIBUTION WIDTH 18.6 % (11.5-20.0)
[2017-07-29 06:14] LABS: MANUAL DIFF REQUIRED? YES
[2017-07-29 06:19] LABS: ANION GAP 6.9 (7.0-16.0); BUN - UREA NITROGEN 17 mg/dL (7-25); CALCIUM SERUM 8.3 mg/dL (8.6-10.3); CARBON DIOXIDE 29.8 mEq/L (21.0-31.0); CHLORIDE 104 mEq/L (98-107); CREATININE - SERUM 0.9 mg/dL (0.6-1.2); GFR AFRICAN-AMERICAN > 60.0 ml/min (>90); GFR NON AFRICAN-AMERICAN > 60.0 ml/min; GLUCOSE 81 mg/dL (70-105); POTASSIUM SERUM 3.7 mEq/L (3.5-5.1); SODIUM SERUM 137 mEq/L (136-145)
[2017-07-29 06:36] LABS: TOTAL CELLS COUNTED 100
[2017-07-29 06:37] LABS: BAND NEUTROPHILE 0 % (0-10); BASOPHIL 0 % (0-3); EOSINOPHIL 5 % (0-5); LYMPHOCYTE 18 % (20-50); MONOCYTE 2 % (2-10); NEUTROPHILS 75 % (40-80)
[2017-07-29 06:38] LABS: PLATELET ESTIMATE DECREASED PLATELETS (NORMAL)
[2017-07-29] MEDS: Benztropine 1 MG TAB PO SCH (08:45)
[2017-07-29] MEDS: Aspirin 81mg Chewable Tab PO SCH (08:45)
[2017-07-29] MEDS: Levothyroxine 0.1 Mg Tab PO SCH (08:45)
[2017-07-29] MEDS: Lactulose 10 Gm/15 mL 30mL UDC PO SCH (08:45)
--- NOTE | 2017-07-29 09:20 | Diagnostic Imaging Report ---
Exam: Ultrasound examination deep venous circulation lower extremities. HISTORY: DVT Findings: Real-time ultrasound exam of the lower extremities performed multiple planes utilizing color Doppler technique. The study demonstrates normal compressibility and augmentation of deep venous system throughout. IMPRESSION: No evidence of deep venous thrombosis lower extremities bilaterally.
[2017-07-29] MEDS ORDERED: Albuterol/Ipratropium Neb 3 ML AERS HHN ONE (10:15)
--- NOTE | 2017-07-29 13:00 | Internal Medicine Prog Note ---
Internal Medicine Subjective - Subjective Patient seen and examined:: with staff, chart reviewed Patient is:: awake, verbal, interactive, congested Patient Complaints of:: congestion, unable to sleep, weight gain Per staff patient has:: no adverse event, poor appetite, unstable gait, tolerating meds Internal Medicine Objective - Results Result Diagrams: 07/29/17 05:45 07/29/17 05:45 Recent Labs: Laboratory Last Values WBC 6.0 Th/cmm (4.8-10.8) 07/29/17 05:45 RBC 3.45 Mil/cmm (3.80-5.10) L 07/29/17 05:45 Hgb 10.3 gm/dL (12-16) L 07/29/17 05:45 Hct 31.0 % (41.0-60) L 07/29/17 05:45 MCV 90.0 fl (81-100) 07/29/17 05:45 MCH 30.0 pg (27.0-31.0) 07/29/17 05:45 MCHC Differential 33.3 pg (28.0-36.0) 07/29/17 05:45 RDW 18.6 % (11.5-20.0) 07/29/17 05:45 Plt Count 62 Th/cmm (150-400) L 07/29/17 05:45 MPV 9.9 fl 07/29/17 05:45 Neutrophils % 65.6 % (40.0-80.0) 07/27/17 23:40 Band Neutrophils % 0 % (0-10) 07/29/17 05:45 Lymphocytes % 20.1 % (20.0-50.0) 07/27/17 23:40 Monocytes % 11.7 % (2.0-10.0) H 07/27/17 23:40 Eosinophils % 2.5 % (0.0-5.0) 07/27/17 23:40 Basophils % 0.1 % (0.0-2.0) 07/27/17 23:40 Neutrophils (Manual) 75 % (40-80) 07/29/17 05:45 Lymphocytes 18 % (20-50) L 07/29/17 05:45 Monocytes 2 % (2-10) 07/29/17 05:45 Eosinophils 5 % (0-5) 07/29/17 05:45 Basophils 0 % (0-3) 07/29/17 05:45 Platelet Estimate DECREASED PLATELETS (NORMAL) 07/29/17 05:45 Sodium 137 mEq/L (136-145) 07/29/17 05:45 Potassium 3.7 mEq/L (3.5-5.1) 07/29/17 05:45 Chloride 104 mEq/L (98-107) 07/29/17 05:45 Carbon Dioxide 29.8 mEq/L (21.0-31.0) 07/29/17 05:45 Anion Gap 6.9 (7.0-16.0) L 07/29/17 05:45 BUN 17 mg/dL (7-25) 07/29/17 05:45 Creatinine 0.9 mg/dL (0.6-1.2) 07/29/17 05:45 Est GFR ( Amer) > 60.0 ml/min (>90) 07/29/17 05:45 Est GFR (Non-Af Amer) > 60.0 ml/min 07/29/17 05:45 BUN/Creatinine Ratio 18.9 07/29/17 05:45 Glucose 81 mg/dL (70-105) 07/29/17 05:45 Calcium 8.3 mg/dL (8.6-10.3) L 07/29/17 05:45 Total Bilirubin 2.3 mg/dL (0.3-1.0) H 07/27/17 23:40 AST 105 U/L (13-39) H 07/27/17 23:40 ALT 63 U/L (7-52) H 07/27/17 23:40 Alkaline Phosphatase 136 U/L (34-104) H 07/27/17 23:40 B-Natriuretic Peptide 225.0 pg/mL (5.0-100.0) H 07/27/17 23:40 Total Protein 6.6 gm/dL (6.0-8.3) 07/27/17 23:40 Albumin 2.2 gm/dL (3.7-5.3) L 07/27/17 23:40 Globulin 4.4 gm/dL 07/27/17 23:40 Albumin/Globulin Ratio 0.5 (1.0-1.8) L 07/27/17 23:40 - Physical Exam Vitals and I&O: Vital Signs Temp 97.2 F 07/29/17 08:00 Pulse 56 07/29/17 10:25 Resp 14 07/29/17 10:25 BP 138/61 07/29/17 08:00 Pulse Ox 100 07/29/17 10:25 Intake & Output 07/28/17 07/29/17 07/29/17 18:59 06:59 18:59 Intake Total 240 Balance 240 Weight (lbs) 103.419 kg 103.419 kg Intake: Oral 240 Other: Stool Characteristics Soft Weight Source Patient stated Estimated Active Medications: Current Medications Acetaminophen/Hydrocodone Bitart ([place] 5mg/325mg) 1 tab PO BID PRN PRN Reason: Pain (Severe) Stop: 09/26/17 08:33 Last Admin: 07/28/17 21:18 Dose: 1 tab Albuterol/Ipratropium (Duoneb Neb) 3 ml HHN Q4HRT PRN PRN Reason: Wheezing Stop: 09/27/17 10:09 Artificial Tears (Artificial Tears Ophth Soln) 1 drop EACH EYE TID [facility] Stop: 09/26/17 08:59 Last Admin: 07/28/17 14:45 Dose: 1 drop Aspirin (Aspirin Chewable) 81 mg PO DAILY [facility] Stop: 09/26/17 08:59 Last Admin: 07/28/17 12:00 Dose: 81 mg Benztropine Mesylate (Cogentin) 1 mg PO BID [facility] Stop: 09/26/17 08:59 Last Admin: 07/28/17 18:28 Dose: 1 mg Buspirone HCl (Buspar) 5 mg PO BID [facility] PRN Reason: Protocol Stop: 09/26/17 08:59 Last Admin: 07/28/17 18:12 Dose: 5 mg Cholecalciferol (Vitamin D3) 5,000 iu PO DAILY [facility] Stop: 09/26/17 08:59 Last Admin: 07/28/17 09:44 Dose: 5,000 iu Citalopram Hydrobromide (Celexa) 30 mg PO DAILY [facility] PRN Reason: Protocol Stop: 09/26/17 08:59 Last Admin: 07/28/17 09:43 Dose: 30 mg Lactulose (Cephulac) 20 gm PO TID [facility] Stop: 09/26/17 08:59 Last Admin: 07/28/17 21:19 Dose: 20 gm Latanoprost (Xalatan 0.005% Ophth Soln) 1 drop EACH EYE HS [facility] Stop: 09/26/17 20:59 Last Admin: 07/28/17 21:19 Dose: 1 drop Levothyroxine Sodium (Synthroid) 0.2 mg PO QDAC [facility] Stop: 09/26/17 11:29 Last Admin: 07/28/17 15:00 Dose: 0.2 mg Lidocaine (Lidoderm 5% Patch) 1 patch TD DAILY [facility] Stop: 09/26/17 15:59 Last Admin: 07/28/17 17:04 Dose: 1 patch Lidocaine (Lidoderm 5% Patch) 1 patch TD DAILY [facility] Stop: 09/26/17 15:59 Lorazepam (Ativan) 0.5 mg PO Q8H PRN; Protocol PRN Reason: Anxiety Stop: 09/26/17 08:33 Losartan Potassium (Cozaar) 100 mg PO DAILY [facility] Stop: 09/26/17 09:59 Last Admin: 07/28/17 11:59 Dose: 100 mg Metoprolol Succinate (Toprol Xl) 25 mg PO DAILY [facility] Stop: 09/26/17 08:59 Last Admin: 07/28/17 09:47 Dose: 25 mg Miscellaneous (Vte Chemical Prophylaxis Screen/ Admission) 1 ea [facility] PRN PRN PRN Reason: PROTOCOL Stop: 09/26/17 13:38 Morphine Sulfate (Morphine) 1 mg IV Q4HR PRN PRN Reason: Pain (Severe) Stop: 09/26/17 01:13 Last Admin: 07/28/17 11:32 Dose: 1 mg Olanzapine (Zyprexa) 5 mg PO Q12H [facility] PRN Reason: Protocol Stop: 09/26/17 08:44 Last Admin: 07/28/17 21:18 Dose: 5 mg Pregabalin (Lyrica) 75 mg PO HS [facility] Stop: 09/26/17 20:59 Last Admin: 07/28/17 21:18 Dose: 75 mg General: lethargic, edematous, appears older HEENT: NC/AT, PERRLA, EOMI, thinning hair Neck: No JVD, No LAD, deformity Lungs: wheezing, rales Cardiovascular: RRR, Normal S1, Normal S2, with murmur Abdomen: soft, non-tender, globular, non-distended, positive bowel sound Extremities: edema, excoriation, contracture Neurological: no change, disorganized - Procedures Procedures: Procedures Procedure Code Date OTHER GROUP THERAPY 94.44 01/13/13 Internal Medicine Assmt/Plan - Assessment Assessment: acute r knee pain sp fall obesity manutrition htn dm hypothyroidism l eye blindness anemia copd - Plan Plan: cont on o2 bronchodilator pain control venous us pending will plan for placement tala martinez rn
--- NOTE | 2017-07-29 15:22 | Consultation ---
DATE OF CONSULTATION: 07/29/2017 PSYCHIATRIC CONSULTATION PHYSICIAN REQUESTING PHYSICIAN: Dr. Enrique. REASON FOR CONSULTATION: History of psychosis and depression. HISTORY OF PRESENT ILLNESS: This patient is a 61-year-old -[place] woman, resident of [facility]. Information obtained by directly interviewing the patient as well as reviewing the admission papers and they are reliable. JUSTIFICATION OF HOSPITALIZATION: The patient has been reported to have been very agitated and getting aggressive at times. The patient is noted to be diagnosed to have schizophrenia, chronic paranoid type and the patient has been admitted over here for acute right knee pain and a psychiatric consultation is called to address the issue of the psychosis. PAST PSYCHIATRIC HISTORY: The patient has a history of schizophrenia. MEDICAL HISTORY: The patient is reported to have diagnosis of COPD, hypertension, diabetes mellitus, anemia and is admitted for knee pain. SOCIAL HISTORY: The patient is a resident of [facility]. SUBSTANCE ABUSE HISTORY: None. PHYSICAL OR SEXUAL ABUSE HISTORY: None. MENTAL EXAMINATION: The patient is a 61-year-old moderately obese, superficially cooperative. Eye contact is poor. Mood is noted to be irritable. Affect is constricted. Insight and judgment at this time are very much impaired. Impulse control is noted to be poor. Coping skills are noted to be very poor. The patient has been having difficult time ____ with coping skills. The patient is paranoid at this time, but denies any command hallucinations. No side effects to the current medications are noted. The patient has been having difficult time to cope with the stress at this time. The patient has been stating that the medications are making her too drowsy. The patient's citalopram is going to be changed to 20 mg in the morning and the patient is going to be continued on the olanzapine, that she is going to be given only 5 mg at bedtime because she has been too sleepy during the daytime. ASSESSMENT: The patient is still psychotic and impulsive. Plan to continue the patient with the supportive therapy. Encouraged the patient to verbalize the concerns rather than to act out. DIAGNOSTIC IMPRESSION: Schizophrenia, chronic paranoid type. PLAN: To continue the patient with the supportive therapy and current medications and followup. JOB# [id number]
[2017-07-29] MEDS: Lidocaine 5% Patch TD SCH (18:21)
[2017-07-29] MEDS: Polyvinyl Alcohol Ophth Soln 15 mL Bottle EACH EYE SCH ×2 (18:21→22:08)
[2017-07-29] MEDS: Albuterol/Ipratropium Neb 3 ML AERS HHN PRN ×2 (19:14→23:48)
[2017-07-29] MEDS: Morphine Sulfate 4 mg/mL 1mL Syr IV PRN (23:46)
[2017-07-30] MEDS: Albuterol/Ipratropium Neb 3 ML AERS HHN PRN ×3 (03:30→22:43)
[2017-07-30] MEDS: Lactulose 10 Gm/15 mL 30mL UDC PO SCH ×2 (10:23→20:18)
[2017-07-30] MEDS: Benztropine 1 MG TAB PO SCH ×2 (10:24→17:58)
[2017-07-30] MEDS: Multivitamin w/ Minerals Tab PO SCH (10:24)
[2017-07-30] MEDS: Hydrocodone/APAP 5mg/325mg Tab PO PRN (10:24)
[2017-07-30] MEDS: Aspirin 81mg Chewable Tab PO SCH (10:25)
[2017-07-30] MEDS: Levothyroxine 0.1 Mg Tab PO SCH (10:25)
--- NOTE | 2017-07-30 13:53 | Internal Medicine Prog Note ---
Internal Medicine Subjective - Subjective Patient seen and examined:: with staff, chart reviewed Patient is:: awake, verbal, interactive, congested Patient Complaints of:: congestion, unable to sleep, weight gain Per staff patient has:: no adverse event, poor appetite, unstable gait, tolerating meds Internal Medicine Objective - Results Result Diagrams: 07/29/17 05:45 07/29/17 05:45 Recent Labs: Laboratory Last Values WBC 6.0 Th/cmm (4.8-10.8) 07/29/17 05:45 RBC 3.45 Mil/cmm (3.80-5.10) L 07/29/17 05:45 Hgb 10.3 gm/dL (12-16) L 07/29/17 05:45 Hct 31.0 % (41.0-60) L 07/29/17 05:45 MCV 90.0 fl (81-100) 07/29/17 05:45 MCH 30.0 pg (27.0-31.0) 07/29/17 05:45 MCHC Differential 33.3 pg (28.0-36.0) 07/29/17 05:45 RDW 18.6 % (11.5-20.0) 07/29/17 05:45 Plt Count 62 Th/cmm (150-400) L 07/29/17 05:45 MPV 9.9 fl 07/29/17 05:45 Neutrophils % 65.6 % (40.0-80.0) 07/27/17 23:40 Band Neutrophils % 0 % (0-10) 07/29/17 05:45 Lymphocytes % 20.1 % (20.0-50.0) 07/27/17 23:40 Monocytes % 11.7 % (2.0-10.0) H 07/27/17 23:40 Eosinophils % 2.5 % (0.0-5.0) 07/27/17 23:40 Basophils % 0.1 % (0.0-2.0) 07/27/17 23:40 Neutrophils (Manual) 75 % (40-80) 07/29/17 05:45 Lymphocytes 18 % (20-50) L 07/29/17 05:45 Monocytes 2 % (2-10) 07/29/17 05:45 Eosinophils 5 % (0-5) 07/29/17 05:45 Basophils 0 % (0-3) 07/29/17 05:45 Platelet Estimate DECREASED PLATELETS (NORMAL) 07/29/17 05:45 Sodium 137 mEq/L (136-145) 07/29/17 05:45 Potassium 3.7 mEq/L (3.5-5.1) 07/29/17 05:45 Chloride 104 mEq/L (98-107) 07/29/17 05:45 Carbon Dioxide 29.8 mEq/L (21.0-31.0) 07/29/17 05:45 Anion Gap 6.9 (7.0-16.0) L 07/29/17 05:45 BUN 17 mg/dL (7-25) 07/29/17 05:45 Creatinine 0.9 mg/dL (0.6-1.2) 07/29/17 05:45 Est GFR ( Amer) > 60.0 ml/min (>90) 07/29/17 05:45 Est GFR (Non-Af Amer) > 60.0 ml/min 07/29/17 05:45 BUN/Creatinine Ratio 18.9 07/29/17 05:45 Glucose 81 mg/dL (70-105) 07/29/17 05:45 Calcium 8.3 mg/dL (8.6-10.3) L 07/29/17 05:45 Total Bilirubin 2.3 mg/dL (0.3-1.0) H 07/27/17 23:40 AST 105 U/L (13-39) H 07/27/17 23:40 ALT 63 U/L (7-52) H 07/27/17 23:40 Alkaline Phosphatase 136 U/L (34-104) H 07/27/17 23:40 B-Natriuretic Peptide 225.0 pg/mL (5.0-100.0) H 07/27/17 23:40 Total Protein 6.6 gm/dL (6.0-8.3) 07/27/17 23:40 Albumin 2.2 gm/dL (3.7-5.3) L 07/27/17 23:40 Globulin 4.4 gm/dL 07/27/17 23:40 Albumin/Globulin Ratio 0.5 (1.0-1.8) L 07/27/17 23:40 - Physical Exam Vitals and I&O: Vital Signs Temp 98.1 F 07/30/17 08:00 Pulse 104 07/30/17 10:39 Resp 24 07/30/17 10:39 BP 122/58 07/30/17 10:26 Pulse Ox 92 07/30/17 10:39 Intake & Output 07/29/17 07/30/17 07/30/17 18:59 06:59 18:59 Weight (lbs) 103.419 kg 103.419 kg 103.419 kg Other: Weight Source Estimated Bedscale Estimated Active Medications: Current Medications Acetaminophen/Hydrocodone Bitart ([place] 5mg/325mg) 1 tab PO BID PRN PRN Reason: Pain (Severe) Stop: 09/26/17 08:33 Last Admin: 07/30/17 10:24 Dose: 1 tab Albuterol/Ipratropium (Duoneb Neb) 3 ml HHN Q4HRT PRN PRN Reason: Wheezing Stop: 09/27/17 10:09 Last Admin: 07/30/17 10:37 Dose: 3 ml Artificial Tears (Artificial Tears Ophth Soln) 1 drop EACH EYE TID [facility] Stop: 09/26/17 08:59 Last Admin: 07/29/17 22:08 Dose: 1 drop Aspirin (Aspirin Chewable) 81 mg PO DAILY [facility] Stop: 09/26/17 08:59 Last Admin: 07/30/17 10:25 Dose: 81 mg Benztropine Mesylate (Cogentin) 1 mg PO BID [facility] Stop: 09/26/17 08:59 Last Admin: 07/30/17 10:24 Dose: 1 mg Buspirone HCl (Buspar) 5 mg PO BID [facility] PRN Reason: Protocol Stop: 09/26/17 08:59 Last Admin: 07/30/17 10:24 Dose: 5 mg Cholecalciferol (Vitamin D3) 5,000 iu PO DAILY [facility] Stop: 09/26/17 08:59 Last Admin: 07/30/17 10:24 Dose: 5,000 iu Citalopram Hydrobromide (Celexa) 20 mg PO DAILY [facility] PRN Reason: Protocol Stop: 09/27/17 14:44 Lactulose (Cephulac) 20 gm PO TID [facility] Stop: 09/26/17 08:59 Last Admin: 07/30/17 10:23 Dose: 20 gm Latanoprost (Xalatan 0.005% Ophth Soln) 1 drop EACH EYE HS [facility] Stop: 09/26/17 20:59 Last Admin: 07/29/17 22:35 Dose: 1 drop Levothyroxine Sodium (Synthroid) 0.2 mg PO QDAC [facility] Stop: 09/26/17 11:29 Last Admin: 07/30/17 10:25 Dose: 0.2 mg Lidocaine (Lidoderm 5% Patch) 1 patch TD DAILY [facility] Stop: 09/26/17 15:59 Last Admin: 07/28/17 17:04 Dose: 1 patch Lidocaine (Lidoderm 5% Patch) 1 patch TD DAILY [facility] Stop: 09/26/17 15:59 Last Admin: 07/29/17 18:21 Dose: 1 patch Lorazepam (Ativan) 0.5 mg PO Q8H PRN; Protocol PRN Reason: Anxiety Stop: 09/26/17 08:33 Last Admin: 07/30/17 10:45 Dose: 0.5 mg Losartan Potassium (Cozaar) 100 mg PO DAILY [facility] Stop: 09/26/17 09:59 Last Admin: 07/30/17 10:26 Dose: 100 mg Metoprolol Succinate (Toprol Xl) 25 mg PO DAILY [facility] Stop: 09/26/17 08:59 Last Admin: 07/30/17 10:26 Dose: Not Given Miscellaneous (Vte Chemical Prophylaxis Screen/ Admission) 1 ea [facility] PRN PRN PRN Reason: PROTOCOL Stop: 09/26/17 13:38 Morphine Sulfate (Morphine) 1 mg IV Q4HR PRN PRN Reason: Pain (Severe) Stop: 09/26/17 01:13 Last Admin: 07/29/17 23:46 Dose: 1 mg Olanzapine (Zyprexa) 5 mg PO HS [facility] PRN Reason: Protocol Stop: 09/27/17 20:59 Pregabalin (Lyrica) 75 mg PO HS [facility] Stop: 09/26/17 20:59 Last Admin: 07/29/17 22:36 Dose: 75 mg General: lethargic, edematous, appears older HEENT: NC/AT, PERRLA, EOMI, thinning hair Neck: No JVD, No LAD, deformity Lungs: wheezing, rales Cardiovascular: RRR, Normal S1, Normal S2, with murmur Abdomen: soft, non-tender, globular, non-distended, positive bowel sound Extremities: edema, excoriation, contracture Neurological: no change, disorganized - Procedures Procedures: Procedures Procedure Code Date OTHER GROUP THERAPY 94.44 01/13/13 Internal Medicine Assmt/Plan - Assessment Assessment: acute r knee pain sp fall obesity manutrition htn dm hypothyroidism l eye blindness anemia copd - Plan Plan: cont on o2 bronchodilator pain control venous us pending will plan for placement tala martinez rn
[2017-07-30] MEDS: Polyvinyl Alcohol Ophth Soln 15 mL Bottle EACH EYE SCH ×2 (14:38→20:18)
--- NOTE | 2017-07-30 17:56 | Progress Notes ---
DATE: 07/30/2017 SUBJECTIVE: Staff was spoken to. The patient is interviewed. Mood is noted to be irritable. Affect is constricted. The patient denies any auditory hallucinations or delusions are noted. Insight and judgment are noted to be improving. Impulse control seems to be fair. No side effects to the medications are noted. The patient has been able to verbalize the concerns rather than to act out. The patient is stating her sleep is okay and she is looking forward to going home from here. The patient at this time is denying any command hallucinations. No aggressive behavior is noted today. ASSESSMENT: The patient is still depressed. PLAN: To continue the patient with supportive therapy and follow. [facility]# [id number]
[2017-07-30] MEDS: Lidocaine 5% Patch TD SCH (17:57)
[2017-07-30] MEDS: Morphine Sulfate 4 mg/mL 1mL Syr IV PRN (23:52)
[2017-07-31] MEDS: Albuterol/Ipratropium Neb 3 ML AERS HHN PRN ×3 (03:34→22:44)
[2017-07-31] MEDS: Levothyroxine 0.1 Mg Tab PO SCH ×2 (06:31→08:32)
[2017-07-31] MEDS: Lactulose 10 Gm/15 mL 30mL UDC PO SCH ×3 (08:34→21:21)
[2017-07-31] MEDS: Benztropine 1 MG TAB PO SCH ×2 (08:36→16:34)
[2017-07-31] MEDS: Aspirin 81mg Chewable Tab PO SCH (08:36)
[2017-07-31] MEDS: Multivitamin w/ Minerals Tab PO SCH (08:37)
[2017-07-31] MEDS: Polyvinyl Alcohol Ophth Soln 15 mL Bottle EACH EYE SCH ×2 (09:21→16:27)
[2017-07-31] MEDS: Lidocaine 5% Patch TD SCH ×3 (09:21→17:08)
--- NOTE | 2017-07-31 12:46 | Internal Medicine Prog Note ---
Internal Medicine Subjective - Subjective Service Date: 07/31/17 Patient is:: awake, verbal, interactive, congested Patient Complaints of:: congestion, unable to sleep, weight gain Per staff patient has:: no adverse event, poor appetite, unstable gait, tolerating meds Internal Medicine Objective - Results Result Diagrams: 07/29/17 05:45 07/29/17 05:45 Recent Labs: Laboratory Last Values WBC 6.0 Th/cmm (4.8-10.8) 07/29/17 05:45 RBC 3.45 Mil/cmm (3.80-5.10) L 07/29/17 05:45 Hgb 10.3 gm/dL (12-16) L 07/29/17 05:45 Hct 31.0 % (41.0-60) L 07/29/17 05:45 MCV 90.0 fl (81-100) 07/29/17 05:45 MCH 30.0 pg (27.0-31.0) 07/29/17 05:45 MCHC Differential 33.3 pg (28.0-36.0) 07/29/17 05:45 RDW 18.6 % (11.5-20.0) 07/29/17 05:45 Plt Count 62 Th/cmm (150-400) L 07/29/17 05:45 MPV 9.9 fl 07/29/17 05:45 Neutrophils % 65.6 % (40.0-80.0) 07/27/17 23:40 Band Neutrophils % 0 % (0-10) 07/29/17 05:45 Lymphocytes % 20.1 % (20.0-50.0) 07/27/17 23:40 Monocytes % 11.7 % (2.0-10.0) H 07/27/17 23:40 Eosinophils % 2.5 % (0.0-5.0) 07/27/17 23:40 Basophils % 0.1 % (0.0-2.0) 07/27/17 23:40 Neutrophils (Manual) 75 % (40-80) 07/29/17 05:45 Lymphocytes 18 % (20-50) L 07/29/17 05:45 Monocytes 2 % (2-10) 07/29/17 05:45 Eosinophils 5 % (0-5) 07/29/17 05:45 Basophils 0 % (0-3) 07/29/17 05:45 Platelet Estimate DECREASED PLATELETS (NORMAL) 07/29/17 05:45 Sodium 137 mEq/L (136-145) 07/29/17 05:45 Potassium 3.7 mEq/L (3.5-5.1) 07/29/17 05:45 Chloride 104 mEq/L (98-107) 07/29/17 05:45 Carbon Dioxide 29.8 mEq/L (21.0-31.0) 07/29/17 05:45 Anion Gap 6.9 (7.0-16.0) L 07/29/17 05:45 BUN 17 mg/dL (7-25) 07/29/17 05:45 Creatinine 0.9 mg/dL (0.6-1.2) 07/29/17 05:45 Est GFR ( Amer) > 60.0 ml/min (>90) 07/29/17 05:45 Est GFR (Non-Af Amer) > 60.0 ml/min 07/29/17 05:45 BUN/Creatinine Ratio 18.9 07/29/17 05:45 Glucose 81 mg/dL (70-105) 07/29/17 05:45 Calcium 8.3 mg/dL (8.6-10.3) L 07/29/17 05:45 Total Bilirubin 2.3 mg/dL (0.3-1.0) H 07/27/17 23:40 AST 105 U/L (13-39) H 07/27/17 23:40 ALT 63 U/L (7-52) H 07/27/17 23:40 Alkaline Phosphatase 136 U/L (34-104) H 07/27/17 23:40 B-Natriuretic Peptide 225.0 pg/mL (5.0-100.0) H 07/27/17 23:40 Total Protein 6.6 gm/dL (6.0-8.3) 07/27/17 23:40 Albumin 2.2 gm/dL (3.7-5.3) L 07/27/17 23:40 Globulin 4.4 gm/dL 07/27/17 23:40 Albumin/Globulin Ratio 0.5 (1.0-1.8) L 07/27/17 23:40 - Physical Exam Vitals and I&O: Vital Signs Temp 97.8 F 07/31/17 12:19 Pulse 58 07/31/17 12:19 Resp 18 07/31/17 12:19 BP 137/64 07/31/17 12:19 Pulse Ox 94 07/31/17 12:19 Intake & Output 07/30/17 07/31/17 07/31/17 18:59 06:59 18:59 Intake Total 450 200 Balance 450 200 Weight (lbs) 228 lb 228 lb 228 lb Intake: Oral 450 200 Other: # Voids 3 1 Stool Characteristics Soft Weight Source Estimated Estimated Estimated Active Medications: Current Medications Acetaminophen/Hydrocodone Bitart ([place] 5mg/325mg) 1 tab PO BID PRN PRN Reason: Pain (Severe) Stop: 09/26/17 08:33 Last Admin: 07/30/17 10:24 Dose: 1 tab Albuterol/Ipratropium (Duoneb Neb) 3 ml HHN Q4HRT PRN PRN Reason: Wheezing Stop: 09/27/17 10:09 Last Admin: 07/31/17 03:34 Dose: 3 ml Artificial Tears (Artificial Tears Ophth Soln) 1 drop EACH EYE TID [facility] Stop: 09/26/17 08:59 Last Admin: 07/31/17 09:21 Dose: 1 drop Aspirin (Aspirin Chewable) 81 mg PO DAILY [facility] Stop: 09/26/17 08:59 Last Admin: 07/31/17 08:36 Dose: 81 mg Benztropine Mesylate (Cogentin) 1 mg PO BID [facility] Stop: 09/26/17 08:59 Last Admin: 07/31/17 08:36 Dose: 1 mg Buspirone HCl (Buspar) 5 mg PO BID [facility] PRN Reason: Protocol Stop: 09/26/17 08:59 Last Admin: 07/31/17 08:37 Dose: 5 mg Cholecalciferol (Vitamin D3) 5,000 iu PO DAILY [facility] Stop: 09/26/17 08:59 Last Admin: 07/31/17 08:34 Dose: 5,000 iu Citalopram Hydrobromide (Celexa) 20 mg PO DAILY [facility] PRN Reason: Protocol Stop: 09/29/17 08:59 Lactulose (Cephulac) 20 gm PO TID [facility] Stop: 09/26/17 08:59 Last Admin: 07/31/17 08:34 Dose: 20 gm Latanoprost (Xalatan 0.005% Ophth Soln) 1 drop EACH EYE HS [facility] Stop: 09/26/17 20:59 Last Admin: 07/30/17 20:19 Dose: 1 drop Levothyroxine Sodium (Synthroid) 0.2 mg PO QDAC [facility] Stop: 09/26/17 11:29 Last Admin: 07/31/17 08:32 Dose: 0.2 mg Lidocaine (Lidoderm 5% Patch) 1 patch TD DAILY [facility] Stop: 09/26/17 15:59 Last Admin: 07/28/17 17:04 Dose: 1 patch Lidocaine (Lidoderm 5% Patch) 1 patch TD DAILY [facility] Stop: 09/26/17 15:59 Last Admin: 07/31/17 09:27 Dose: 1 patch Lorazepam (Ativan) 0.5 mg PO Q8H PRN; Protocol PRN Reason: Anxiety Stop: 09/26/17 08:33 Last Admin: 07/30/17 10:45 Dose: 0.5 mg Losartan Potassium (Cozaar) 100 mg PO DAILY [facility] Stop: 09/26/17 09:59 Last Admin: 07/31/17 08:34 Dose: 100 mg Metoprolol Succinate (Toprol Xl) 25 mg PO DAILY [facility] Stop: 09/26/17 08:59 Last Admin: 07/31/17 08:36 Dose: 25 mg Miscellaneous (Vte Chemical Prophylaxis Screen/ Admission) 1 ea [facility] PRN PRN PRN Reason: PROTOCOL Stop: 09/26/17 13:38 Morphine Sulfate (Morphine) 1 mg IV Q4HR PRN PRN Reason: Pain (Severe) Stop: 09/26/17 01:13 Last Admin: 07/30/17 23:52 Dose: 1 mg Olanzapine (Zyprexa) 5 mg PO HS [facility] PRN Reason: Protocol Stop: 09/29/17 20:59 Pregabalin (Lyrica) 75 mg PO HS [facility] Stop: 09/26/17 20:59 Last Admin: 07/30/17 20:18 Dose: 75 mg General: lethargic, edematous, appears older HEENT: NC/AT, PERRLA, EOMI, thinning hair Neck: No JVD, No LAD, deformity Lungs: wheezing, rales Cardiovascular: RRR, Normal S1, Normal S2, with murmur Abdomen: soft, non-tender, globular, non-distended, positive bowel sound Extremities: edema, excoriation, contracture Neurological: no change, disorganized - Procedures Procedures: Procedures Procedure Code Date OTHER GROUP THERAPY 94.44 01/13/13 Internal Medicine Assmt/Plan - Assessment Assessment: acute r knee pain sp fall obesity manutrition htn dm hypothyroidism l eye blindness anemia copd - Plan Plan: continue with pt cont on o2 bronchodilator pain control 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
[2017-07-31] MEDS: Hydrocodone/APAP 5mg/325mg Tab PO PRN (21:24)
[2017-08-01] MEDS: Albuterol/Ipratropium Neb 3 ML AERS HHN PRN ×2 (02:50→19:10)
[2017-08-01] MEDS: Morphine Sulfate 4 mg/mL 1mL Syr IV PRN ×2 (03:34→15:50)
[2017-08-01 06:14] LABS: % EOSINOPHILS 4.4 % (0.0-5.0); % LYMPHOCYTES 21.4 % (20.0-50.0); % MONOCYTES 10.8 % (2.0-10.0); % NEUTROPHILS 62.4 % (40.0-80.0); BASOPHILE ABSOLUTE 0.1 Th/cumm (0-0.2); EOSINOPHILE ABSOLUTE 0.3 Th/cmm (0.1-0.4); HEMOGLOBIN 10.8 gm/dL (12-16); LYMPHOCYTE ABSOLUTE 1.4 Th/cmm (1.5-3.0); MEAN CELL VOLUME 89.6 fl (81-100); MEAN CORPUSCULAR HEMOGLOBIN 30.3 pg (27.0-31.0); MEAN CORPUSCULAR HGB CONC 33.8 pg (28.0-36.0); MEAN PLATELET VOLUME 11.4 fl; MONOCYTE ABSOLUTE 0.7 Th/cmm (0.3-1.0); NEUTROPHILE ABSOLUTE 3.9 Th/cmm (1.8-8.0); PLATELET COUNT 64 Th/cmm (150-400); RED BLOOD COUNT 3.57 Mil/cmm (3.80-5.10); RED CELL DISTRIBUTION WIDTH 18.9 % (11.5-20.0); WHITE BLOOD COUNT 6.4 Th/cmm (4.8-10.8)
[2017-08-01 06:28] LABS: ANION GAP 7.9 (7.0-16.0); BUN - UREA NITROGEN 18 mg/dL (7-25); CALCIUM SERUM 8.5 mg/dL (8.6-10.3); CHLORIDE 102 mEq/L (98-107); CREATININE - SERUM 0.9 mg/dL (0.6-1.2); GFR AFRICAN-AMERICAN > 60.0 ml/min (>90); GFR NON AFRICAN-AMERICAN > 60.0 ml/min; GLUCOSE 82 mg/dL (70-105); POTASSIUM SERUM 3.9 mEq/L (3.5-5.1); SODIUM SERUM 135 mEq/L (136-145)
[2017-08-01] MEDS: Levothyroxine 0.1 Mg Tab PO SCH (06:44)
[2017-08-01] MEDS: Lidocaine 5% Patch TD SCH ×3 (10:00→10:34)
[2017-08-01] MEDS: Lactulose 10 Gm/15 mL 30mL UDC PO SCH ×2 (10:29→13:51)
[2017-08-01] MEDS: Polyvinyl Alcohol Ophth Soln 15 mL Bottle EACH EYE SCH ×3 (10:29→20:33)
[2017-08-01] MEDS: Benztropine 1 MG TAB PO SCH ×2 (10:32→18:03)
[2017-08-01] MEDS: Aspirin 81mg Chewable Tab PO SCH (10:33)
[2017-08-01] MEDS: Multivitamin w/ Minerals Tab PO SCH (10:33)
--- NOTE | 2017-08-01 12:32 | Internal Medicine Prog Note ---
Internal Medicine Subjective - Subjective Service Date: 08/01/17 Patient is:: awake, verbal, interactive, congested Patient Complaints of:: congestion, unable to sleep, weight gain Per staff patient has:: no adverse event, poor appetite, unstable gait, tolerating meds Internal Medicine Objective - Results Result Diagrams: 08/01/17 05:56 08/01/17 05:56 Recent Labs: Laboratory Last Values WBC 6.4 Th/cmm (4.8-10.8) 08/01/17 05:56 RBC 3.57 Mil/cmm (3.80-5.10) L 08/01/17 05:56 Hgb 10.8 gm/dL (12-16) L 08/01/17 05:56 Hct 32.0 % (41.0-60) L 08/01/17 05:56 MCV 89.6 fl (81-100) 08/01/17 05:56 MCH 30.3 pg (27.0-31.0) 08/01/17 05:56 MCHC Differential 33.8 pg (28.0-36.0) 08/01/17 05:56 RDW 18.9 % (11.5-20.0) 08/01/17 05:56 Plt Count 64 Th/cmm (150-400) L 08/01/17 05:56 MPV 11.4 fl 08/01/17 05:56 Neutrophils % 62.4 % (40.0-80.0) 08/01/17 05:56 Band Neutrophils % 0 % (0-10) 07/29/17 05:45 Lymphocytes % 21.4 % (20.0-50.0) 08/01/17 05:56 Monocytes % 10.8 % (2.0-10.0) H 08/01/17 05:56 Eosinophils % 4.4 % (0.0-5.0) 08/01/17 05:56 Basophils % 1.0 % (0.0-2.0) 08/01/17 05:56 Neutrophils (Manual) 75 % (40-80) 07/29/17 05:45 Lymphocytes 18 % (20-50) L 07/29/17 05:45 Monocytes 2 % (2-10) 07/29/17 05:45 Eosinophils 5 % (0-5) 07/29/17 05:45 Basophils 0 % (0-3) 07/29/17 05:45 Platelet Estimate DECREASED PLATELETS (NORMAL) 07/29/17 05:45 Sodium 135 mEq/L (136-145) L 08/01/17 05:56 Potassium 3.9 mEq/L (3.5-5.1) 08/01/17 05:56 Chloride 102 mEq/L (98-107) 08/01/17 05:56 Carbon Dioxide 29.0 mEq/L (21.0-31.0) 08/01/17 05:56 Anion Gap 7.9 (7.0-16.0) 08/01/17 05:56 BUN 18 mg/dL (7-25) 08/01/17 05:56 Creatinine 0.9 mg/dL (0.6-1.2) 08/01/17 05:56 Est GFR ( Amer) > 60.0 ml/min (>90) 08/01/17 05:56 Est GFR (Non-Af Amer) > 60.0 ml/min 08/01/17 05:56 BUN/Creatinine Ratio 20.0 08/01/17 05:56 Glucose 82 mg/dL (70-105) 08/01/17 05:56 Calcium 8.5 mg/dL (8.6-10.3) L 08/01/17 05:56 Total Bilirubin 2.3 mg/dL (0.3-1.0) H 07/27/17 23:40 AST 105 U/L (13-39) H 07/27/17 23:40 ALT 63 U/L (7-52) H 07/27/17 23:40 Alkaline Phosphatase 136 U/L (34-104) H 07/27/17 23:40 B-Natriuretic Peptide 225.0 pg/mL (5.0-100.0) H 07/27/17 23:40 Total Protein 6.6 gm/dL (6.0-8.3) 07/27/17 23:40 Albumin 2.2 gm/dL (3.7-5.3) L 07/27/17 23:40 Globulin 4.4 gm/dL 07/27/17 23:40 Albumin/Globulin Ratio 0.5 (1.0-1.8) L 07/27/17 23:40 - Physical Exam Vitals and I&O: Vital Signs Temp 98 F 08/01/17 08:00 Pulse 60 08/01/17 10:37 Resp 20 08/01/17 08:05 BP 152/71 08/01/17 10:37 Pulse Ox 98 08/01/17 08:05 Intake & Output 07/31/17 08/01/17 08/01/17 18:59 06:59 18:59 Intake Total 200 500 Balance 200 500 Weight (lbs) 228 lb 228 lb Intake: Oral 200 500 Other: # Voids 1 2 # Bowel Movements 0 Stool Characteristics Soft Weight Source Estimated Bedscale Active Medications: Current Medications Acetaminophen/Hydrocodone Bitart ([place] 5mg/325mg) 1 tab PO BID PRN PRN Reason: Pain (Severe) Stop: 09/26/17 08:33 Last Admin: 07/31/17 21:24 Dose: 1 tab Albuterol/Ipratropium (Duoneb Neb) 3 ml HHN Q4HRT PRN PRN Reason: Wheezing Stop: 09/27/17 10:09 Last Admin: 08/01/17 02:50 Dose: 3 ml Artificial Tears (Artificial Tears Ophth Soln) 1 drop EACH EYE TID [facility] Stop: 09/26/17 08:59 Last Admin: 08/01/17 10:29 Dose: 1 drop Aspirin (Aspirin Chewable) 81 mg PO DAILY [facility] Stop: 09/26/17 08:59 Last Admin: 08/01/17 10:33 Dose: 81 mg Benztropine Mesylate (Cogentin) 1 mg PO BID [facility] Stop: 09/26/17 08:59 Last Admin: 08/01/17 10:32 Dose: 1 mg Buspirone HCl (Buspar) 5 mg PO BID [facility] PRN Reason: Protocol Stop: 09/26/17 08:59 Last Admin: 08/01/17 10:33 Dose: 5 mg Cholecalciferol (Vitamin D3) 5,000 iu PO DAILY [facility] Stop: 09/26/17 08:59 Last Admin: 08/01/17 10:25 Dose: 5,000 iu Citalopram Hydrobromide (Celexa) 20 mg PO DAILY [facility] PRN Reason: Protocol Stop: 09/29/17 08:59 Last Admin: 08/01/17 10:37 Dose: 20 mg Lactulose (Cephulac) 20 gm PO TID [facility] Stop: 09/26/17 08:59 Last Admin: 08/01/17 10:29 Dose: 20 gm Latanoprost (Xalatan 0.005% Oph Soln) 1 drop EACH EYE HS [facility] Stop: 09/26/17 20:59 Last Admin: 07/31/17 21:20 Dose: 1 drop Levothyroxine Sodium (Synthroid) 0.2 mg PO QDAC [facility] Stop: 09/26/17 11:29 Last Admin: 08/01/17 06:44 Dose: 0.2 mg Lidocaine (Lidoderm 5% Patch) 1 patch TD DAILY [facility] Stop: 09/26/17 15:59 Last Admin: 08/01/17 10:34 Dose: 1 patch Lidocaine (Lidoderm 5% Patch) 1 patch TD DAILY [facility] Stop: 09/26/17 15:59 Last Admin: 07/31/17 09:27 Dose: 1 patch Lorazepam (Ativan) 0.5 mg PO Q8H PRN; Protocol PRN Reason: Anxiety Stop: 09/26/17 08:33 Last Admin: 08/01/17 12:07 Dose: 0.5 mg Losartan Potassium (Cozaar) 100 mg PO DAILY [facility] Stop: 09/26/17 09:59 Last Admin: 08/01/17 10:25 Dose: 100 mg Metoprolol Succinate (Toprol Xl) 25 mg PO DAILY [facility] Stop: 09/26/17 08:59 Last Admin: 08/01/17 10:37 Dose: 25 mg Miscellaneous (Vte Chemical Prophylaxis Screen/ Admission) 1 ea [facility] PRN PRN PRN Reason: PROTOCOL Stop: 09/26/17 13:38 Morphine Sulfate (Morphine) 1 mg IV Q4HR PRN PRN Reason: Pain (Severe) Stop: 09/26/17 01:13 Last Admin: 08/01/17 03:34 Dose: 1 mg Olanzapine (Zyprexa) 5 mg PO HS [facility] PRN Reason: Protocol Stop: 09/29/17 20:59 Last Admin: 07/31/17 21:21 Dose: 5 mg Pregabalin (Lyrica) 75 mg PO HS [facility] Stop: 09/26/17 20:59 Last Admin: 07/31/17 21:21 Dose: 75 mg General: lethargic, edematous, appears older HEENT: NC/AT, PERRLA, EOMI, thinning hair Neck: No JVD, No LAD, deformity Lungs: wheezing, rales Cardiovascular: RRR, Normal S1, Normal S2, with murmur Abdomen: soft, non-tender, globular, non-distended, positive bowel sound Extremities: edema, excoriation, contracture Neurological: no change, disorganized - Procedures Procedures: Procedures Procedure Code Date OTHER GROUP THERAPY 94.44 01/13/13 Internal Medicine Assmt/Plan - Assessment Assessment: acute r knee pain sp fall obesity manutrition htn dm hypothyroidism l eye blindness anemia copd - Plan Plan: dc planning once there is a snf placement continue with pt cont on o2 bronchodilator pain control
[2017-08-02 06:01] LABS: % BASOPHILS 2.8 % (0.0-2.0); % LYMPHOCYTES 25.6 % (20.0-50.0); % MONOCYTES 10.5 % (2.0-10.0); % NEUTROPHILS 57.1 % (40.0-80.0); BASOPHILE ABSOLUTE 0.2 Th/cumm (0-0.2); EOSINOPHILE ABSOLUTE 0.2 Th/cmm (0.1-0.4); HEMATOCRIT 30.6 % (41.0-60); HEMOGLOBIN 10.4 gm/dL (12-16); LYMPHOCYTE ABSOLUTE 1.5 Th/cmm (1.5-3.0); MEAN CELL VOLUME 89.5 fl (81-100); MEAN CORPUSCULAR HEMOGLOBIN 30.3 pg (27.0-31.0); MEAN CORPUSCULAR HGB CONC 33.8 pg (28.0-36.0); MEAN PLATELET VOLUME 9.7 fl; MONOCYTE ABSOLUTE 0.6 Th/cmm (0.3-1.0); NEUTROPHILE ABSOLUTE 3.3 Th/cmm (1.8-8.0); PLATELET COUNT 47 Th/cmm (150-400); RED BLOOD COUNT 3.42 Mil/cmm (3.80-5.10); RED CELL DISTRIBUTION WIDTH 18.5 % (11.5-20.0); WHITE BLOOD COUNT 5.8 Th/cmm (4.8-10.8)
[2017-08-02] MEDS: Morphine Sulfate 4 mg/mL 1mL Syr IV PRN (06:02)
[2017-08-02 06:14] LABS: ANION GAP 6.2 (7.0-16.0); BUN - UREA NITROGEN 17 mg/dL (7-25); CALCIUM SERUM 8.4 mg/dL (8.6-10.3); CHLORIDE 103 mEq/L (98-107); CREATININE - SERUM 0.9 mg/dL (0.6-1.2); GFR AFRICAN-AMERICAN > 60.0 ml/min (>90); GFR NON AFRICAN-AMERICAN > 60.0 ml/min; GLUCOSE 74 mg/dL (70-105); POTASSIUM SERUM 4.2 mEq/L (3.5-5.1); SODIUM SERUM 135 mEq/L (136-145)
[2017-08-02] MEDS: Levothyroxine 0.1 Mg Tab PO SCH (06:33)
[2017-08-02] MEDS: Lidocaine 5% Patch TD SCH ×2 (09:34→09:41)
[2017-08-02] MEDS: Lactulose 10 Gm/15 mL 30mL UDC PO SCH ×3 (09:36→20:46)
[2017-08-02] MEDS: Benztropine 1 MG TAB PO SCH ×2 (09:36→18:43)
[2017-08-02] MEDS: Multivitamin w/ Minerals Tab PO SCH (09:37)
[2017-08-02] MEDS: Aspirin 81mg Chewable Tab PO SCH (09:37)
[2017-08-02] MEDS: Polyvinyl Alcohol Ophth Soln 15 mL Bottle EACH EYE SCH ×3 (09:38→20:46)
[2017-08-02] MEDS ORDERED: Morphine Sulfate 4 mg/mL 1mL Syr IV PRN (11:55)
--- NOTE | 2017-08-02 15:30 | Internal Medicine Prog Note ---
Internal Medicine Subjective - Subjective Service Date: 08/02/17 Patient is:: awake, verbal, interactive, congested Patient Complaints of:: congestion, unable to sleep, weight gain Per staff patient has:: no adverse event, poor appetite, unstable gait, tolerating meds Internal Medicine Objective - Results Result Diagrams: 08/02/17 05:41 08/02/17 05:41 Recent Labs: Laboratory Last Values WBC 5.8 Th/cmm (4.8-10.8) 08/02/17 05:41 RBC 3.42 Mil/cmm (3.80-5.10) L 08/02/17 05:41 Hgb 10.4 gm/dL (12-16) L 08/02/17 05:41 Hct 30.6 % (41.0-60) L 08/02/17 05:41 MCV 89.5 fl (81-100) 08/02/17 05:41 MCH 30.3 pg (27.0-31.0) 08/02/17 05:41 MCHC Differential 33.8 pg (28.0-36.0) 08/02/17 05:41 RDW 18.5 % (11.5-20.0) 08/02/17 05:41 Plt Count 47 Th/cmm (150-400) L 08/02/17 05:41 MPV 9.7 fl 08/02/17 05:41 Neutrophils % 57.1 % (40.0-80.0) 08/02/17 05:41 Band Neutrophils % 0 % (0-10) 07/29/17 05:45 Lymphocytes % 25.6 % (20.0-50.0) 08/02/17 05:41 Monocytes % 10.5 % (2.0-10.0) H 08/02/17 05:41 Eosinophils % 4.0 % (0.0-5.0) 08/02/17 05:41 Basophils % 2.8 % (0.0-2.0) H 08/02/17 05:41 Neutrophils (Manual) 75 % (40-80) 07/29/17 05:45 Lymphocytes 18 % (20-50) L 07/29/17 05:45 Monocytes 2 % (2-10) 07/29/17 05:45 Eosinophils 5 % (0-5) 07/29/17 05:45 Basophils 0 % (0-3) 07/29/17 05:45 Platelet Estimate DECREASED PLATELETS (NORMAL) 07/29/17 05:45 Sodium 135 mEq/L (136-145) L 08/02/17 05:41 Potassium 4.2 mEq/L (3.5-5.1) 08/02/17 05:41 Chloride 103 mEq/L (98-107) 08/02/17 05:41 Carbon Dioxide 30.0 mEq/L (21.0-31.0) 08/02/17 05:41 Anion Gap 6.2 (7.0-16.0) L 08/02/17 05:41 BUN 17 mg/dL (7-25) 08/02/17 05:41 Creatinine 0.9 mg/dL (0.6-1.2) 08/02/17 05:41 Est GFR ( Amer) > 60.0 ml/min (>90) 08/02/17 05:41 Est GFR (Non-Af Amer) > 60.0 ml/min 08/02/17 05:41 BUN/Creatinine Ratio 18.9 08/02/17 05:41 Glucose 74 mg/dL (70-105) 08/02/17 05:41 Calcium 8.4 mg/dL (8.6-10.3) L 08/02/17 05:41 Total Bilirubin 2.3 mg/dL (0.3-1.0) H 07/27/17 23:40 AST 105 U/L (13-39) H 07/27/17 23:40 ALT 63 U/L (7-52) H 07/27/17 23:40 Alkaline Phosphatase 136 U/L (34-104) H 07/27/17 23:40 B-Natriuretic Peptide 225.0 pg/mL (5.0-100.0) H 07/27/17 23:40 Total Protein 6.6 gm/dL (6.0-8.3) 07/27/17 23:40 Albumin 2.2 gm/dL (3.7-5.3) L 07/27/17 23:40 Globulin 4.4 gm/dL 07/27/17 23:40 Albumin/Globulin Ratio 0.5 (1.0-1.8) L 07/27/17 23:40 - Physical Exam Vitals and I&O: Vital Signs Temp 97.9 F 08/02/17 11:49 Pulse 66 08/02/17 12:47 Resp 20 08/02/17 12:47 BP 130/86 08/02/17 11:49 Pulse Ox 97 08/02/17 12:47 Intake & Output 08/01/17 08/02/17 08/02/17 18:59 06:59 18:59 Intake Total 950 Balance 950 Weight (lbs) 228 lb 228 lb Intake: Oral 950 Other: # Voids 3 # Bowel Movements 2 Weight Source Bedscale Estimated Active Medications: Current Medications Acetaminophen/Hydrocodone Bitart ([place] 5mg/325mg) 1 tab PO BID PRN PRN Reason: Pain (Severe) Stop: 09/26/17 08:33 Last Admin: 07/31/17 21:24 Dose: 1 tab Albuterol/Ipratropium (Duoneb Neb) 3 ml HHN Q4HRT PRN PRN Reason: Wheezing Stop: 09/27/17 10:09 Last Admin: 08/01/17 19:10 Dose: 3 ml Artificial Tears (Artificial Tears Ophth Soln) 1 drop EACH EYE TID [facility] Stop: 09/26/17 08:59 Last Admin: 08/02/17 14:45 Dose: 1 drop Aspirin (Aspirin Chewable) 81 mg PO DAILY [facility] Stop: 09/26/17 08:59 Last Admin: 08/02/17 09:37 Dose: 81 mg Benztropine Mesylate (Cogentin) 1 mg PO BID [facility] Stop: 09/26/17 08:59 Last Admin: 08/02/17 09:36 Dose: 1 mg Buspirone HCl (Buspar) 5 mg PO BID [facility] PRN Reason: Protocol Stop: 09/26/17 08:59 Last Admin: 08/02/17 09:37 Dose: 5 mg Cholecalciferol (Vitamin D3) 5,000 iu PO DAILY [facility] Stop: 09/26/17 08:59 Last Admin: 08/02/17 09:37 Dose: 5,000 iu Citalopram Hydrobromide (Celexa) 20 mg PO DAILY [facility] PRN Reason: Protocol Stop: 09/29/17 08:59 Last Admin: 08/02/17 09:49 Dose: 20 mg Lactulose (Cephulac) 20 gm PO TID [facility] Stop: 09/26/17 08:59 Last Admin: 08/02/17 14:44 Dose: 20 gm Latanoprost (Xalatan 0.005% Ophth Soln) 1 drop EACH EYE HS [facility] Stop: 09/26/17 20:59 Last Admin: 08/01/17 20:33 Dose: 1 drop Levothyroxine Sodium (Synthroid) 0.2 mg PO QDAC [facility] Stop: 09/26/17 11:29 Last Admin: 08/02/17 06:33 Dose: 0.2 mg Lidocaine (Lidoderm 5% Patch) 1 patch TD DAILY [facility] Stop: 09/26/17 15:59 Last Admin: 08/02/17 09:34 Dose: 1 patch Lidocaine (Lidoderm 5% Patch) 1 patch TD DAILY [facility] Stop: 09/26/17 15:59 Last Admin: 08/02/17 09:41 Dose: 1 patch Lorazepam (Ativan) 0.5 mg PO Q8H PRN; Protocol PRN Reason: Anxiety Stop: 09/26/17 08:33 Last Admin: 08/01/17 20:33 Dose: 0.5 mg Losartan Potassium (Cozaar) 100 mg PO DAILY [facility] Stop: 09/26/17 09:59 Last Admin: 08/01/17 10:25 Dose: 100 mg Metoprolol Succinate (Toprol Xl) 25 mg PO DAILY [facility] Stop: 09/26/17 08:59 Last Admin: 08/02/17 09:44 Dose: 25 mg Miscellaneous (Vte Chemical Prophylaxis Screen/ Admission) 1 [facility] PRN PRN PRN Reason: PROTOCOL Stop: 09/26/17 13:38 Morphine Sulfate (Morphine) 1 mg IV Q8HR PRN PRN Reason: Pain (Severe) Stop: 09/26/17 01:13 Olanzapine (Zyprexa) 5 mg PO HS [facility] PRN Reason: Protocol Stop: 09/29/17 20:59 Last Admin: 08/01/17 20:33 Dose: 5 mg Pregabalin (Lyrica) 75 mg PO HS [facility] Stop: 09/26/17 20:59 Last Admin: 08/01/17 20:33 Dose: 75 mg General: lethargic, edematous, appears older HEENT: NC/AT, PERRLA, EOMI, thinning hair Neck: No JVD, No LAD, deformity Lungs: wheezing, rales Cardiovascular: RRR, Normal S1, Normal S2, with murmur Abdomen: soft, non-tender, globular, non-distended, positive bowel sound Extremities: edema, excoriation, contracture Neurological: no change, disorganized - Procedures Procedures: Procedures Procedure Code Date OTHER GROUP THERAPY 94.44 01/13/13 Internal Medicine Assmt/Plan - Assessment Assessment: acute r knee pain sp fall obesity manutrition htn dm hypothyroidism l eye blindness anemia copd - Plan Plan: dc planning once there is a snf placement continue with pt cont on o2 bronchodilator pain control Nutritional Asmnt/Malnutr-PDOC - Dietary Evaluation Malnutrition Findings (Please click <Entered> for more info): Nutritional Asmnt/Malnutrition Start: 08/01/17 15: 05 Text: Status: Complete Freq: Document 08/01/17 15:05 HANSA (Rec: 08/01/17 15:15 HANSA [id number]) Nutritional Asmnt/Malnutrition Patient General Information Nutritional Screening Moderate Risk Diagnosis acute right knee pain s/p fall Pertinent Medical Hx/Surgical Hx COPD, schizophrenia, HTN, DM, anemia, glaucouma, cirrhosis, ascites, left eye blind Subjective Information Pt seen sitting up in bed having lunch, consumed 50% of lunch at time of visit. Pt reported good appetite, she does not like mashed potato. Per nurse note, pt had episodes of panic attacks. Current Diet Order/ Nutrition Support preed NCS small portion Pertinent Medications vit D3, synthroid Pertinent Labs 08/01 Na 135, Ca 8.5, glucose 82 Nutritional Hx/Data Height 4 ft 9 in Height (Calculated Centimeters) 144.8 Current Weight (lbs) 228 lb Weight (Calculated Kilograms) 103.4 Weight (Calculated Grams) 485868.1 [place] Body Weight 96 Body Mass Index (BMI) 49.3 Weight Status Morbidly Obese GI Symptoms GI Symptoms None Last BM none 08/01 Difficult in: None Skin Integrity/Comment: intact Current %PO Good (75-100%) Estimated Nutritional Goals BEE in Kcals: Adj wt of IBW Calories/Kcals/Kg 25-30 Kcals Calculated 0683-2345 Protein: Adj wt of IBW Protein g/k Protein Calculated 59 Fluid: ml 1475-1770ml (1ml/kcal) Nutritional Problem No current Nutrition Prob Problem N/A Malnutrition Alert Is there a minimum of two criteria No selected? Query Text:Check all the applicable criteria. A minimum of two criteria are recommended for diagnosis of either severe or non-severe malnutrition. Malnutrition Related to Morbid Obesity Malnutrition related to morbid obesity No Intervention/Recommendation Comments 1. Continue with pureed NCS diet as ordered. Diet preference updated. 2. Monitor PO intake, wt, labs and skin integrity 3. F/U as low risk in 7 days, 08/08 Expected Outcomes/Goals Expected Outcomes/Goals 1. PO intake to meet at least 75% of nutritional needs. 2. Wt stability, skin to remain intact, labs to approach WNL.
[2017-08-02] MEDS: Albuterol/Ipratropium Neb 3 ML AERS HHN PRN (20:23)
[2017-08-03] MEDS: Lactulose 10 Gm/15 mL 30mL UDC PO SCH ×2 (08:38→14:15)
[2017-08-03] MEDS: Aspirin 81mg Chewable Tab PO SCH (08:39)
[2017-08-03] MEDS: Benztropine 1 MG TAB PO SCH ×2 (08:39→16:35)
[2017-08-03] MEDS: Levothyroxine 0.1 Mg Tab PO SCH (08:44)
[2017-08-03] MEDS: Lidocaine 5% Patch TD SCH ×2 (08:45→09:05)
[2017-08-03] MEDS: Multivitamin w/ Minerals Tab PO SCH (08:45)
[2017-08-03] MEDS: Polyvinyl Alcohol Ophth Soln 15 mL Bottle EACH EYE SCH ×2 (08:45→14:30)
--- NOTE | 2017-08-03 13:00 | Internal Medicine Prog Note ---
Internal Medicine Subjective - Subjective Service Date: 08/03/17 Patient seen and examined:: with staff Patient is:: awake, verbal, interactive Patient Complaints of:: congestion, unable to sleep, weight gain Per staff patient has:: no adverse event, poor appetite, unstable gait, tolerating meds Internal Medicine Objective - Results Result Diagrams: 08/02/17 05:41 08/02/17 05:41 Recent Labs: Laboratory Last Values WBC 5.8 Th/cmm (4.8-10.8) 08/02/17 05:41 RBC 3.42 Mil/cmm (3.80-5.10) L 08/02/17 05:41 Hgb 10.4 gm/dL (12-16) L 08/02/17 05:41 Hct 30.6 % (41.0-60) L 08/02/17 05:41 MCV 89.5 fl (81-100) 08/02/17 05:41 MCH 30.3 pg (27.0-31.0) 08/02/17 05:41 MCHC Differential 33.8 pg (28.0-36.0) 08/02/17 05:41 RDW 18.5 % (11.5-20.0) 08/02/17 05:41 Plt Count 47 Th/cmm (150-400) L 08/02/17 05:41 MPV 9.7 fl 08/02/17 05:41 Neutrophils % 57.1 % (40.0-80.0) 08/02/17 05:41 Band Neutrophils % 0 % (0-10) 07/29/17 05:45 Lymphocytes % 25.6 % (20.0-50.0) 08/02/17 05:41 Monocytes % 10.5 % (2.0-10.0) H 08/02/17 05:41 Eosinophils % 4.0 % (0.0-5.0) 08/02/17 05:41 Basophils % 2.8 % (0.0-2.0) H 08/02/17 05:41 Neutrophils (Manual) 75 % (40-80) 07/29/17 05:45 Lymphocytes 18 % (20-50) L 07/29/17 05:45 Monocytes 2 % (2-10) 07/29/17 05:45 Eosinophils 5 % (0-5) 07/29/17 05:45 Basophils 0 % (0-3) 07/29/17 05:45 Platelet Estimate DECREASED PLATELETS (NORMAL) 07/29/17 05:45 Sodium 135 mEq/L (136-145) L 08/02/17 05:41 Potassium 4.2 mEq/L (3.5-5.1) 08/02/17 05:41 Chloride 103 mEq/L (98-107) 08/02/17 05:41 Carbon Dioxide 30.0 mEq/L (21.0-31.0) 08/02/17 05:41 Anion Gap 6.2 (7.0-16.0) L 08/02/17 05:41 BUN 17 mg/dL (7-25) 08/02/17 05:41 Creatinine 0.9 mg/dL (0.6-1.2) 08/02/17 05:41 Est GFR ( Amer) > 60.0 ml/min (>90) 08/02/17 05:41 Est GFR (Non-Af Amer) > 60.0 ml/min 08/02/17 05:41 BUN/Creatinine Ratio 18.9 08/02/17 05:41 Glucose 74 mg/dL (70-105) 08/02/17 05:41 Calcium 8.4 mg/dL (8.6-10.3) L 08/02/17 05:41 Total Bilirubin 2.3 mg/dL (0.3-1.0) H 07/27/17 23:40 AST 105 U/L (13-39) H 07/27/17 23:40 ALT 63 U/L (7-52) H 07/27/17 23:40 Alkaline Phosphatase 136 U/L (34-104) H 07/27/17 23:40 B-Natriuretic Peptide 225.0 pg/mL (5.0-100.0) H 07/27/17 23:40 Total Protein 6.6 gm/dL (6.0-8.3) 07/27/17 23:40 Albumin 2.2 gm/dL (3.7-5.3) L 07/27/17 23:40 Globulin 4.4 gm/dL 07/27/17 23:40 Albumin/Globulin Ratio 0.5 (1.0-1.8) L 07/27/17 23:40 - Physical Exam Vitals and I&O: Vital Signs Temp 97.6 F 08/03/17 11:47 Pulse 59 08/03/17 11:47 Resp 19 08/03/17 11:47 BP 158/81 08/03/17 11:47 Pulse Ox 99 08/03/17 11:47 Intake & Output 08/02/17 08/03/17 08/03/17 18:59 06:59 18:59 Intake Total 1150 200 Balance 1150 200 Weight (lbs) 239 lb 14.4 oz 241 lb 2.56 oz Intake: Oral 1150 200 Other: # Voids 4 # Bowel Movements 1 Weight Source Bedscale Bedscale Active Medications: Current Medications Acetaminophen/Hydrocodone Bitart ([place] 5mg/325mg) 1 tab PO BID PRN PRN Reason: Pain (Severe) Stop: 09/26/17 08:33 Last Admin: 07/31/17 21:24 Dose: 1 tab Albuterol/Ipratropium (Duoneb Neb) 3 ml HHN Q4HRT PRN PRN Reason: Wheezing Stop: 09/27/17 10:09 Last Admin: 08/02/17 20:23 Dose: 3 ml Artificial Tears (Artificial Tears Ophth Soln) 1 drop EACH EYE TID [facility] Stop: 09/26/17 08:59 Last Admin: 08/03/17 08:45 Dose: 1 drop Aspirin (Aspirin Chewable) 81 mg PO DAILY [facility] Stop: 09/26/17 08:59 Last Admin: 08/03/17 08:39 Dose: 81 mg Benztropine Mesylate (Cogentin) 1 mg PO BID [facility] Stop: 09/26/17 08:59 Last Admin: 08/03/17 08:39 Dose: 1 mg Buspirone HCl (Buspar) 5 mg PO BID [facility] PRN Reason: Protocol Stop: 09/26/17 08:59 Last Admin: 08/03/17 08:43 Dose: 5 mg Cholecalciferol (Vitamin D3) 5,000 iu PO DAILY [facility] Stop: 09/26/17 08:59 Last Admin: 08/03/17 10:12 Dose: 5,000 iu Citalopram Hydrobromide (Celexa) 20 mg PO DAILY [facility] PRN Reason: Protocol Stop: 09/29/17 08:59 Last Admin: 08/03/17 08:39 Dose: 20 mg Lactulose (Cephulac) 20 gm PO TID [facility] Stop: 09/26/17 08:59 Last Admin: 08/03/17 08:38 Dose: 20 gm Latanoprost (Xalatan 0.005% Ophth Soln) 1 drop EACH EYE HS [facility] Stop: 09/26/17 20:59 Last Admin: 08/02/17 20:46 Dose: 1 drop Levothyroxine Sodium (Synthroid) 0.2 mg PO QDAC [facility] Stop: 09/26/17 11:29 Last Admin: 08/03/17 08:44 Dose: 0.2 mg Lidocaine (Lidoderm 5% Patch) 1 patch TD DAILY [facility] Stop: 09/26/17 15:59 Last Admin: 08/03/17 09:05 Dose: 1 patch Lidocaine (Lidoderm 5% Patch) 1 patch TD DAILY [facility] Stop: 09/26/17 15:59 Last Admin: 08/03/17 08:45 Dose: 1 patch Lorazepam (Ativan) 0.5 mg PO Q8H PRN; Protocol PRN Reason: Anxiety Stop: 09/26/17 08:33 Last Admin: 08/01/17 20:33 Dose: 0.5 mg Losartan Potassium (Cozaar) 100 mg PO DAILY [facility] Stop: 09/26/17 09:59 Last Admin: 08/03/17 08:43 Dose: 100 mg Metoprolol Succinate (Toprol Xl) 25 mg PO DAILY [facility] Stop: 09/26/17 08:59 Last Admin: 08/03/17 08:40 Dose: 25 mg Miscellaneous (Vte Chemical Prophylaxis Screen/ Admission) 1 [facility] PRN PRN PRN Reason: PROTOCOL Stop: 09/26/17 13:38 Morphine Sulfate (Morphine) 1 mg IV Q8HR PRN PRN Reason: Pain (Severe) Stop: 09/26/17 01:13 Olanzapine (Zyprexa) 5 mg PO HS [facility] PRN Reason: Protocol Stop: 09/29/17 20:59 Last Admin: 08/02/17 20:45 Dose: 5 mg Pregabalin (Lyrica) 75 mg PO HS [facility] Stop: 09/26/17 20:59 Last Admin: 08/01/17 20:33 Dose: 75 mg General: lethargic, edematous, appears older HEENT: NC/AT, PERRLA, EOMI, thinning hair Neck: No JVD, No LAD, deformity Lungs: wheezing, rales Cardiovascular: RRR, Normal S1, Normal S2, with murmur Abdomen: soft, non-tender, globular, non-distended, positive bowel sound Extremities: edema, excoriation, contracture Neurological: no change, disorganized - Procedures Procedures: Procedures Procedure Code Date OTHER GROUP THERAPY 94.44 01/13/13 Internal Medicine Assmt/Plan - Assessment Assessment: acute r knee pain sp fall obesity manutrition htn dm hypothyroidism l eye blindness anemia copd - Plan Plan: dc planning once there is a snf placement continue with pt cont on o2 bronchodilator pain control Nutritional Asmnt/Malnutr-PDOC - Dietary Evaluation Malnutrition Findings (Please click <Entered> for more info): Nutritional Asmnt/Malnutrition Start: 08/01/17 15: 05 Text: Status: Complete Freq: Document 08/01/17 15:05 MICHELLE (Rec: 08/01/17 15:15 [facility] Nutritional Asmnt/Malnutrition Patient General Information Nutritional Screening Moderate Risk Diagnosis acute right knee pain s/p fall Pertinent Medical Hx/Surgical Hx COPD, schizophrenia, HTN, DM, anemia, glaucouma, cirrhosis, ascites, left eye blind Subjective Information Pt seen sitting up in bed having lunch, consumed 50% of lunch at time of visit. Pt reported good appetite, she does not like mashed potato. Per nurse note, pt had episodes of panic attacks. Current Diet Order/ Nutrition Support preed NCS small portion Pertinent Medications vit D3, synthroid Pertinent Labs 08/01 Na 135, Ca 8.5, glucose 82 Nutritional Hx/Data Height 4 ft 9 in Height (Calculated Centimeters) 144.8 Current Weight (lbs) 228 lb Weight (Calculated Kilograms) 103.4 Weight (Calculated Grams) 723522.1 [place] Body Weight 96 Body Mass Index (BMI) 49.3 Weight Status Morbidly Obese GI Symptoms GI Symptoms None Last BM none 08/01 Difficult in: None Skin Integrity/Comment: intact Current %PO Good (75-100%) Estimated Nutritional Goals BEE in Kcals: Adj wt of IBW Calories/Kcals/Kg 25-30 Kcals Calculated 5185-9148 Protein: Adj wt of IBW Protein g/k Protein Calculated 59 Fluid: ml 1475-1770ml (1ml/kcal) Nutritional Problem No current Nutrition Prob Problem N/A Malnutrition Alert Is there a minimum of two criteria No selected? Query Text:Check all the applicable criteria. A minimum of two criteria are recommended for diagnosis of either severe or non-severe malnutrition. Malnutrition Related to Morbid Obesity Malnutrition related to morbid obesity No Intervention/Recommendation Comments 1. Continue with pureed NCS diet as ordered. Diet preference updated. 2. Monitor PO intake, wt, labs and skin integrity 3. F/U as low risk in 7 days, 08/08 Expected Outcomes/Goals Expected Outcomes/Goals 1. PO intake to meet at least 75% of nutritional needs. 2. Wt stability, skin to remain intact, labs to approach WNL.
== END 2017-08-03 18:45 | DRG 555 ==
LOC: ER 23:14 → MSI 07-28 00:47
PROVIDERS: ADMIT Internal Medicine; ATTEND Internal Medicine
DX: M25.561 Pain in right knee (principal); E43 Unspecified severe protein-calorie malnutrition; F20.0 Paranoid schizophrenia; Z68.43 Body mass index [BMI] 50.0-59.9, adult; D64.9 Anemia, unspecified; J44.9 Chronic obstructive pulmonary disease, unspecified; E11.9 Type 2 diabetes mellitus without complications; K74.60 Unspecified cirrhosis of liver; H54.62 Unqualified visual loss, left eye, normal vision right eye; H40.9 Unspecified glaucoma; E66.9 Obesity, unspecified; E03.9 Hypothyroidism, unspecified; M25.511 Pain in right shoulder; I25.10 Atherosclerotic heart disease of native coronary artery without angina pectoris; I50.9 Heart failure, unspecified; I11.0 Hypertensive heart disease with heart failure; G89.29 Other chronic pain; W18.30XA Fall on same level, unspecified, initial encounter; Y93.89 Activity, other specified; Y92.89 Other specified places as the place of occurrence of the external cause; Y99.8 Other external cause status; Z90.710 Acquired absence of both cervix and uterus; Z96.651 Presence of right artificial knee joint
CPT/HCPCS: 36415-UA; 71045-TC; 73030-TC-RT; 73560-TC-RT; 80048-TC; 80053-TC; 83880-TC; 85007-TC; 85025-TC; 85027-TC; 93005; 93970-TC-50; 94760; 97530; J1940; J7040; J7051; X3904; Z7610